=== PATIENT | female | born 1965 | race Hispanic/Latino ===

== ENCOUNTER 2017-01-16 10:19 | Emergency (ER) | payer OTHER ==
[~2017-01-16] VITALS: Ht 175.3 cm; Wt 115.7 kg
[~2017-01-16 10:19] MED LIST: CINAMMON PO; CRESTOR10 M1 PO; CYCLOBENZAPRINE10 M1 PO; FISH OIL 1,2001 EAC3 PO; FLUTICASONE PRO16 GM NASB; GABAPENTIN300 M2 PO; GARLIC OIL1000 M1 PO; LANTUS SOL100 UNIT/1 SC; LISINOPRIL10 M1 PO; METFORMIN HCL1000 M1 PO; NAPROXEN500 M2 PO; VITAMIN D250000 UNIT PO
[2017-01-16 13:17] VITALS: BP 140/77
[2017-01-16 13:26] LABS: ABSOLUTE BASOPHIL COUNT 0 /CUMM (0.0-0.2); ABSOLUTE EOSINOPHIL COUNT 0.4 /CUMM (0.0-0.7); ABSOLUTE GRANULOCYTE CT 7.2 /CUMM (1.4-6.5); ABSOLUTE MONOCYTE COUNT 0.4 /CUMM (0.10-0.60); BASOPHIL % 0.4 % (0.0-2.0); EOSINOPHIL % 3.5 % (0-5); GRANULOCYTE % 65.5 % (42.2-75.2); HEMATOCRIT 36.1 % (37-47); MEAN CORPUSCULAR HGB 28.2 PG (27.0-31.0); MEAN CORPUSCULAR HGB CONC 34.9 G/DL (33.0-37.0); MEAN CORPUSCULAR VOLUME 80.9 FL (81.0-99.0); MEAN PLATELET VOLUME 7.8 FL (7.4-10.4); PLATELET COUNT 429 /CUMM (130-400); RBC DISTRIBUTION WIDTH 13.5 % (11.5-14.5); RED BLOOD CELL CT 4.46 /CUMM (4.20-5.40)
--- NOTE | 2017-01-16 13:30 | ED AMS/SEIZURE/WEAK/DIZZY ---
History of Present Illness General Chief Complaint: Dizziness Stated Complaint: DIZZY Source: patient Exam Limitations: no limitations Vital Signs & Intake/Output Vital Signs & Intake/Output Vital Signs Date Time Temp Pulse Resp B/P B/P Pulse O2 O2 Flow FiO2 Mean Ox Delivery Rate 01/16 1507 98 01/16 1317 97.0 80 140/77 01/16 1031 96.9 100 16 144/88 100 Room Air Allergies Coded Allergies: clindamycin (Mild, ITCHY 10/06/16) Penicillins (UNKNOWN 10/06/16) Reconcile Medications Atorvastatin Calcium 20 MG TABLET 1 TAB PO DAILY CHOLESTEROL (Reported) Fluticasone Propionate 50 MCG/ACTUATION SPRAY.SUSP 2 SPRAY NASB DAILY NEEDED ALLERGIES (Reported) Gabapentin 300 MG CAPSULE 1 CAP PO QPM NEUROPATHY (Reported) Insulin Glargine,Hum.rec.anlog (Lantus Solostar) 100 UNIT/ML (3 ML) INSULN.PEN 30 UNIT SC QPM DIABETES (Reported) Lisinopril 10 MG TABLET 1 TAB PO DAILY BLOOD PRESSURE (Reported) Meclizine HCl 25 MG TABLET 1 TAB PO TIDPRN DIZZINESS Metformin HCl 1,000 MG TABLET 1 TAB PO BID DIABETES (Reported) [place]-3 Fatty Acids/Fish Oil (Fish Oil 1,000 MG Capsule) 340 MG-1,000 MG CAPSULE 1 CAP PO DAILY SUPPLEMENT (Reported) Rosuvastatin Calcium (Crestor) 10 MG TABLET 1 TAB PO DAILY CHOLESTEROL ( Reported) Valsartan (Diovan) 40 MG TABLET 1 TAB PO DAILY HEART (Reported) Triage Note: PT TO ED FOR SUDDEN ONSET OF NAUSEA, DIZZINESS AND BLOODY NOSE THAT BEGAN WHILE SHE WAS AT WORK, BLEEDING STOPPED ON ARRIVAL TO ED. 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 Triage Nurses Notes Reviewed? yes Onset: Abrupt Duration: hour(s): Timing: single episode today Injury Environment: work Severity: moderate HPI: 51yo female presents to ED complaining of abrupt onset epistaxis with subsequent nausea and dizziness. Patient states that she was at work when she experienced a bloody nose. Patient states she felt as though the room around her was spinning. She also felt as though she may pass out. Patient went to the bathroom and had 1 episode of vomiting. Patient reports she has intermittent epistaxis every month or so since she was a child, she has never had symptoms such as dizziness and nausea with nosebleed. Patient also reports that she has had left ear pain and infections for the past 2 months, she recently finished a ten-day course of Augmentin if she still has persistent pain of the left ear and behind the left ear. The patient has never had any dizziness or vertigo in the past. She denies chest pain, shortness of breath, fevers, chills, abdominal pain, diarrhea. Past History Travel History Traveled to [place] past 21 day No Medical History Any Pertinent Medical History? 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 No Review of Systems Review of Systems Constitutional: Reports: no symptoms. EENTM: Reports: see HPI. Respiratory: Reports: no symptoms. Cardiovascular: Reports: see HPI. GI: Reports: see HPI. Genitourinary: Reports: no symptoms. Musculoskeletal: Reports: no symptoms. Skin: Reports: no symptoms. Neurological/Psychological: Reports: see HPI. Hematologic/Endocrine: Reports: no symptoms. Immunologic/Allergic: Reports: no symptoms. All Other Systems: Reviewed and Negative Physical Exam Physical Exam General Appearance: well developed/nourished, no apparent distress, alert, awake Head: atraumatic, normal appearance Eyes: Bilateral: normal appearance, PERRL, EOMI. 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 Yes CVA/TIA Diagnosis No Sepsis Present: No Sepsis Focused Exam Completed? No Progress Differential Diagnosis: arrythmia, alcohol intoxication, anemia, benign positional vertigo, CVA/stroke, dehydration, drug intoxication, encephalitis, electrolyte imbalance, GI bleed, hypoglycemia, hypoxia, intracranial Hem., intracranial mass/tumor, labrynthitis, Meniere's disease, postural hypotension, presyncope Plan of Care: Orders Procedure Date/time Status MISTAKE 01/16 1504 Active TROPONIN LEVEL 01/16 1306 Complete COMPREHENSIVE METABOLIC PANEL 01/16 1306 Complete CBC WITHOUT DIFFERENTIAL 01/16 1306 Complete EKG 01/16 1033 Active Laboratory Tests 01/16/17 1315: Anion Gap 14, Estimated GFR > 60, BUN/Creatinine Ratio 36.7 H, Glucose 301 H, Calcium 9.7, Total Bilirubin 0.4, AST 17, ALT 30, Alkaline Phosphatase 123, Troponin I < 0.01, Total Protein 6.9, Albumin 3.6, Globulin 3.3, Albumin/ Globulin Ratio 1.1, CBC w Diff NO MAN DIFF REQ, RBC 4.46, MCV 80.9 L, MCH 28.2, RDW 13.5, MPV 7.8, Gran % 65.5, Lymphocytes % 26.9, Monocytes % 3.7, Eosinophils % 3.5, Basophils % 0.4, Absolute Granulocytes 7.2 H, Absolute Lymphocytes 3.0, Absolute Monocytes 0.4, Absolute Eosinophils 0.4, Absolute Basophils 0, PUBS MCHC 34.9 Patient reports improvement in dizziness following meclizine. The patient is neurologically intact, no focal neurologic deficit. No erythema present on ear exam, no epistaxis or active nose bleed. The patient's labs show signs of dehydration. Patient also has elevated glucose level. She was educating on increasing her PO water intake today and to check her finger stick glucose level when she gets home and use her insulin slinding scale. Patient feels ready to go home at this time. She was given an ENT specialist to f/u with. The patient has stable vital signs, no orthostatic hypotension. The patient is able to ambulate without difficulty. Patient given return precautions. She is in agreement with the plan of care. Initial ED EKG: sinus rhythm @ 96bpm, nonspecific ST changes Prior EKG: unchanged (07/30/13) Departure Departure Disposition: HOME OR SELF CARE Condition: Stable Clinical Impression Primary Impression: Dizziness Secondary Impressions: Ear pain, left, Epistaxis, Hyperglycemia Referrals: John LEAL,Ross Enriquez (PCP/Family) Additional Instructions: As discussed, follow-up with ENT specialist referred to you today. He may also take meclizine as prescribed as needed for dizziness. If her symptoms are worsening. Experience severe headache, increasing dizziness, or other worsening symptoms return immediately to the emergency department. Please note that there might be incidental findings in your evaluation that are unrelated to the current emergency department visit. Please notify your primary care doctor about this emergency department visit in order to obtain and review all of the testing performed so that these incidental findings can be monitored as needed. If you had an x-ray performed, please understand that some fractures may not be seen on the initial set of x-rays. If your symptoms persist you might need a repeat set of x-rays to check for such a fracture. If you had a laceration evaluated, please understand that foreign bodies such as glass or wood may not be visible to the naked eye or on plain x-rays. If the wound becomes red, swollen, increasingly more painful or if there is any drainage from the wound, please have it reevaluated by a physician for the possibility of a retained foreign body. If you're unable to follow up as outlined in the discharge instructions please return to the emergency department. Thank you for choosing the [facility] Emergency Department for your care. It was a pleasure to serve you today. Departure Forms: Customer Survey General Discharge Information Prescriptions: Current Visit Scripts Meclizine HCl 1 TAB PO TIDPRN #30 TAB
[2017-01-16] MEDS ORDERED: ATORVASTATIN CA20 M1 PO (14:17)
[2017-01-16] MEDS ORDERED: DIOVAN40 MG PO (14:17)
[2017-01-16] MEDS ORDERED: FISH OIL 1,0001 EACH PO (14:18)
[2017-01-16] MEDS ORDERED: MECLIZINE HCL25 MG PO (15:01)
== END 2017-01-16 15:12 ==
LOC: ERH 10:19
PROVIDERS: Physician Assistant
DX: R42 Dizziness and giddiness (principal); E11.65 Type 2 diabetes mellitus with hyperglycemia; R04.0 Epistaxis; H92.02 Otalgia, left ear
CPT/HCPCS: 93005; 93010

== ENCOUNTER 2017-02-27 13:42 | Emergency (ER) | payer OTHER ==
[~2017-02-27] VITALS: Ht 175.3 cm; Wt 113.4 kg
[~2017-02-27 13:42] MED LIST changes: +ATORVASTATIN CA20 M1 PO; +DIOVAN40 MG PO; +FISH OIL 1,0001 EACH PO; +MECLIZINE HCL25 MG PO
--- NOTE | 2017-02-27 16:36 | ED GENERAL ADULT ---
History of Present Illness General Chief Complaint: Lower Extremity Problems Stated Complaint: BILATERAL FEET SWELLING Source: patient, old records Exam Limitations: no limitations Vital Signs & Intake/Output Vital Signs & Intake/Output Vital Signs Date Time Temp Pulse Resp B/P B/P Pulse O2 O2 Flow FiO2 Mean Ox Delivery Rate 02/27 2014 97.2 83 16 172/81 96 Room Air 02/27 1821 96.9 85 12 162/84 96 Room Air 02/27 1612 96.3 85 12 144/78 96 Room Air 02/27 1353 97.8 89 18 145/78 98 Room Air Room Air Allergies Coded Allergies: clindamycin (Mild, ITCHY 10/06/16) Penicillins (UNKNOWN 10/06/16) Reconcile Medications Atorvastatin Calcium 20 MG TABLET 1 TAB PO DAILY CHOLESTEROL (Reported) Fluticasone Propionate 50 MCG/ACTUATION SPRAY.SUSP 2 SPRAY NASB DAILY NEEDED ALLERGIES (Reported) Furosemide (Lasix) 20 MG TABLET 1 TAB PO DAILY LEG SWELLING Gabapentin 300 MG CAPSULE 1 CAP PO QPM NEUROPATHY (Reported) Insulin Glargine,Hum.rec.anlog (Lantus Solostar) 100 UNIT/ML (3 ML) INSULN.PEN 30 UNIT SC QPM DIABETES (Reported) Lisinopril 10 MG TABLET 1 TAB PO DAILY BLOOD PRESSURE (Reported) Meclizine HCl 25 MG TABLET 1 TAB PO TIDPRN DIZZINESS Metformin HCl 1,000 MG TABLET 1 TAB PO BID DIABETES (Reported) [place]-3 Fatty Acids/Fish Oil (Fish Oil 1,000 MG Capsule) 340 MG-1,000 MG CAPSULE 1 CAP PO DAILY SUPPLEMENT (Reported) Rosuvastatin Calcium (Crestor) 10 MG TABLET 1 TAB PO DAILY CHOLESTEROL ( Reported) Valsartan (Diovan) 40 MG TABLET 1 TAB PO DAILY HEART (Reported) Triage Note: TRIAGE: 52 Y/O FEMALE PRESENTS C/O 810 BILATERAL FOOT SWELLING AND PINS AND NEEDLES - HX OF PERIPHERAL NEUROPATHY. NOW ALSO C/O SUDDEN ONSET OF PORTERIOR NECK PAIN. Triage Nurses Notes Reviewed? yes Onset: Gradual Duration: day(s): Timing: recent history Injury Environment: home Severity: moderate HPI: 52-year-old female with history of COPD, DM, HTN presents emergency department complaining of swelling of her legs. Patient states that she has had intermittent swelling of her lower legs for a long time, she was on Lasix for a month, discontinued this medication last months. Patient states that her prescription was only for one month's duration. Since being off this medication she has noticed increasing swelling in her lower legs. The patient wears compression stockings which helps however is still persistent. Patient also complaining of Pain behind left ear radiating up head beginning last night after sudden movement of her neck, his pain has improved since yesterday. Also had chest pain while waiting in the waiting room, left-sided, no radiation, improved over the past several minutes. Patient also reports dyspnea on exertion persistent for over one month. She denies recent fall, trauma, presyncope, visual changes. (Carmela Garcia) Past History Travel History Traveled to [place] past 21 day No Medical History Any Pertinent Medical History? see below for history Neurological: peripheral neuropathy EENT: "EYE LEAKAGE" Cardiovascular: hypertension, hyperlipidemia Respiratory: NONE Gastrointestinal: NONE Hepatic: NONE Renal: NONE Musculoskeletal: NONE Psychiatric: NONE Endocrine: diabetes Blood Disorders: NONE Cancer(s): NONE HOMOEOPATH/Reproductive: NONE Surgical History Surgical History: non-contributory Psychosocial History Who do you live with Spouse Services at Home None What is your primary language [place] Tobacco Use: Never used ETOH Use: occasional use Illicit Drug Use: denies illicit drug use Family History Hx Contributory? No (Carmela Garcia) Review of Systems Review of Systems Constitutional: Reports: no symptoms. EENTM: Reports: no symptoms. Respiratory: Reports: see HPI. Cardiovascular: Reports: see HPI. GI: Reports: no symptoms. Genitourinary: Reports: no symptoms. Musculoskeletal: Reports: see HPI. Skin: Reports: no symptoms. Neurological/Psychological: Reports: see HPI. Hematologic/Endocrine: Reports: no symptoms. Immunologic/Allergic: Reports: no symptoms. All Other Systems: Reviewed and Negative (Carmela Garcia) Physical Exam Physical Exam General Appearance: well developed/nourished, no apparent distress, alert, awake Head: atraumatic, normal appearance, MILD TENDERNESS TO SCALP POSTERIOR TO LEFT EAR Eyes: Bilateral: normal appearance, PERRL, EOMI. 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 Yes CVA/TIA Diagnosis: No Sepsis Present: No Sepsis Focused Exam Completed? No (Jeannette SIDDIQI,Carmela Winkler) Progress Differential Diagnoses I considered the following diagnoses in my evaluation of the patient: [ACS, ICH, by mouth edema, CHF, COPD, pneumonia, dependent edema, electrolyte abnormality, pericarditis, myocarditis, costochondritis] Plan of Care: Orders Procedure Date/time Status TROPONIN LEVEL 02/27 1855 Complete EKG 02/27 1855 Active TROPONIN LEVEL 02/27 1631 Complete HUMAN BETA HCG SCREEN 02/27 1631 Complete COMPREHENSIVE METABOLIC PANEL 02/27 1631 Complete CBC WITHOUT DIFFERENTIAL 02/27 1631 Complete B-TYPE NATRIURETIC PEP (BNP) 02/27 1631 Complete EKG 02/27 1631 Active Laboratory Tests 02/27/17 1858: Troponin I < 0.01 02/27/17 1710: Anion Gap 9, Estimated GFR > 60, BUN/Creatinine Ratio 32.0 H, Glucose 73, Calcium 9.7, Total Bilirubin 0.2, AST 16, ALT 24, Alkaline Phosphatase 114, Troponin I < 0.01, Bzo-N-Hkqdzjlzijh Pept 79.0, Total Protein 6.8, Albumin 3.4 L, Globulin 3.4, Albumin/Globulin Ratio 1.0 L, Total Beta HCG NEGATIVE, CBC w Diff NO MAN DIFF REQ, RBC 4.20, MCV 82.0, MCH 28.0, RDW 13.8, MPV 7.6, Gran % 60.8, Lymphocytes % 29.9, Monocytes % 4.8, Eosinophils % 4.0, Basophils % 0.5, Absolute Granulocytes 7.1 H, Absolute Lymphocytes 3.5 H, Absolute Monocytes 0.6, Absolute Eosinophils 0.5, Absolute Basophils 0.1, PUBS MCHC 34.2 EKG shows subtle T-wave flattening compared to prior study. Troponin negative, remainder of blood work is within normal limits. Patient's chest x-ray without signs of effusion or congestion. Given patient's chest pain while waiting in the emergency department will obtain 2 sets of EKGs and troponins to further rule out acute coronary syndrome. Repeat EKG is unchanged, no skin changes. Second troponin is negative. Patient given low-dose Lasix regarding her leg swelling and instructed to follow-up with her primary care doctor this week. Patient in no acute distress, laying comfortably in stretcher while waiting for results. Patient has stable vital signs, nontoxic appearing. The patient feels ready to go home at this time, she agrees with the plan of care. The patient was discussed with Dr. Burden who agrees with the plan of care. Diagnostic Imaging: Viewed by Me: Radiology Read. Discussed w/RAD: Radiology Read. CXR Impression: PATIENT: KEM PERRIN PRESENT AGE: 52 PATIENT ACCOUNT NO: [id number] : 67 LOCATION: [facility] ORDERING PHYSICIAN: Carmela SIDDIQI SERVICE DATE: 02/27/17 EXAM TYPE: RAD - XRY-CHEST XRAY, TWO VIEWS EXAMINATION: XR CHEST CLINICAL INFORMATION: Dyspnea with exertion. COMPARISON: Chest done on 07/17/2016. TECHNIQUE: 2 views of the chest were obtained. FINDINGS: Both lung mcgrath are symmetrically expanded and appear clear. The cardiomediastinal silhouette is within normal limits. There is no pleural effusion present. The visualized upper abdomen is unremarkable. IMPRESSION: No acute cardiopulmonary disease. DICTATED BY: Alton Restrepo MD DATE/TIME DICTATED:02/27/171742 FUND DIRECTOR:MARIAH DATE/TIME TRANSCRIBED:02/27/171742 CONFIDENTIAL, DO NOT COPY WITHOUT APPROPRIATE AUTHORIZATION. <Electronically signed in Other Vendor System> SIGNED BY: Alton Restrepo MD 02/27/17 4534 Initial ED EKG: sinus rhythm @83bpm, nonspecific t wave changes Prior EKG: changed (01/16/17, subtle t wave change) Repeat EKG: unchanged (Carmela Garcia) Departure Departure Disposition: HOME OR SELF CARE Condition: Stable Clinical Impression Primary Impression: Localized swelling of both lower legs Secondary Impressions: Chest pain Qualifiers: Chest pain type: unspecified Qualified Code: R07.9 - Chest pain, unspecified Dyspnea Qualifiers: Dyspnea type: dyspnea on exertion Qualified Code: R06.09 - Other forms of dyspnea Head pain Qualifiers: Headache type: unspecified Headache chronicity pattern: acute headache Intractability: not intractable Qualified Code: R51 - Headache Referrals: John LEAL,Ross Enriquez (PCP/Family) Additional Instructions: Began Lasix once a day as prescribed. Continue wearing her compression stockings and elevate your legs. Follow-up with your primary care doctor this week to discuss this new medication. Return to Emergency Department with any worsening symptoms or other concerns. Please note that there might be incidental findings in your evaluation that are unrelated to the current emergency department visit. Please notify your primary care doctor about this emergency department visit in order to obtain and review all of the testing performed so that these incidental findings can be monitored as needed. If you had an x-ray performed, please understand that some fractures may not be seen on the initial set of x-rays. If your symptoms persist you might need a repeat set of x-rays to check for such a fracture. If you had a laceration evaluated, please understand that foreign bodies such as glass or wood may not be visible to the naked eye or on plain x-rays. If the wound becomes red, swollen, increasingly more painful or if there is any drainage from the wound, please have it reevaluated by a physician for the possibility of a retained foreign body. If you're unable to follow up as outlined in the discharge instructions please return to the emergency department. Thank you for choosing the [facility] Emergency Department for your care. It was a pleasure to serve you today. Departure Forms: Customer Survey General Discharge Information Prescriptions: Current Visit Scripts Furosemide (Lasix) 1 TAB PO DAILY #7 TAB (Carmela Garcia) PA/SYSTEM SUPPORT ADMINISTRATOR Co-Sign Statement Statement: ED Attending supervision documentation- [] I saw and evaluated the patient. I have also reviewed all the pertinent lab results and diagnostic results. I agree with the findings and the plan of care as documented in the PA's/SYSTEM SUPPORT ADMINISTRATOR's documentation. [X] I have reviewed the ED Record and agree with the PA's/SYSTEM SUPPORT ADMINISTRATOR's documentation. [] Additions or exceptions (if any) to the PAs/SYSTEM SUPPORT ADMINISTRATOR's note and plan are summarized below: [] (Jenise LEAL,Geoff Grey) Critical Care Note Critical Care Note Critical Care Time: non-applicable (Carmela Garcia)
[2017-02-27 17:23] LABS: ABSOLUTE EOSINOPHIL COUNT 0.5 /CUMM (0.0-0.7); ABSOLUTE GRANULOCYTE CT 7.1 /CUMM (1.4-6.5); ABSOLUTE LYMPH COUNT 3.5 /CUMM (1.2-3.4); ABSOLUTE MONOCYTE COUNT 0.6 /CUMM (0.10-0.60); HEMATOCRIT 34.4 % (37-47); MEAN CORPUSCULAR HGB CONC 34.2 G/DL (33.0-37.0); MEAN PLATELET VOLUME 7.6 FL (7.4-10.4); RBC DISTRIBUTION WIDTH 13.8 % (11.5-14.5); WHITE BLOOD CELL COUNT 11.7 /CUMM (4.8-10.8)
--- NOTE | 2017-02-27 17:59 | RADIOLOGY REPORT ---
EXAMINATION: XR CHEST CLINICAL INFORMATION: Dyspnea with exertion. COMPARISON: Chest done on 07/17/2016. TECHNIQUE: 2 views of the chest were obtained. FINDINGS: Both lung mcgrath are symmetrically expanded and appear clear. The cardiomediastinal silhouette is within normal limits. There is no pleural effusion present. The visualized upper abdomen is unremarkable. IMPRESSION: No acute cardiopulmonary disease.
[2017-02-27 18:03] LABS: ABSOLUTE BASOPHIL COUNT 0.1 /CUMM (0.0-0.2); BASOPHIL % 0.5 % (0.0-2.0); GRANULOCYTE % 60.8 % (42.2-75.2); PLATELET COUNT 537 /CUMM (130-400)
[2017-02-27] MEDS ORDERED: LASIX20 M1 PO (20:10)
[2017-02-27 20:15] VITALS: BP 172/81
== END 2017-02-27 20:35 ==
LOC: ERH 13:42
PROVIDERS: Physician Assistant
DX: M79.89 Other specified soft tissue disorders (principal); R07.9 Chest pain, unspecified; R06.00 Dyspnea, unspecified; R51 Headache
CPT/HCPCS: 71046; 93005; 93010

== ENCOUNTER 2017-04-02 14:44 | Emergency (ER) | payer OTHER ==
[~2017-04-02] VITALS: Ht 175.3 cm; Wt 117.9 kg
[~2017-04-02 14:44] MED LIST changes: +LASIX20 M1 PO
--- NOTE | 2017-04-02 16:21 | ED ANKLE/FOOT INJURY COMPLAINT ---
History of Present Illness General Chief Complaint: Foot or Ankle Injury Stated Complaint: lft ankle pain Source: patient Exam Limitations: no limitations Vital Signs & Intake/Output Vital Signs & Intake/Output Vital Signs Date Time Temp Pulse Resp B/P B/P Pulse O2 O2 Flow FiO2 Mean Ox Delivery Rate 04/02 1715 90 20 131/83 99 Room Air 04/02 1451 97 20 160/78 98 Room Air ED Intake and Output 04/03 0000 04/02 1200 Intake Total Output Total Balance Patient 260 lb Weight Weight Reported by Patient Measurement Method Allergies Coded Allergies: clindamycin (Mild, ITCHY 10/06/16) Penicillins (UNKNOWN 10/06/16) Reconcile Medications Aspirin (Ecotrin*) 81 MG TABLET.DR 1 TAB PO DAILY HEART HEALTH (Reported) Atorvastatin Calcium 20 MG TABLET 1 TAB PO DAILY CHOLESTEROL (Reported) Budesonide/Formoterol Fumarate (Symbicort 80-4.5 Mcg Inhaler) 80 MCG-4.5 MCG/ ACTUATION HFA.AER.AD 2 PUF INH BID BREATHING PROBLEMS (Reported) Fluticasone Propionate 50 MCG/ACTUATION SPRAY.SUSP 2 SPRAY NASB DAILY NEEDED ALLERGIES (Reported) Furosemide (Lasix) 20 MG TABLET 1 TAB PO DAILY LEG SWELLING Gabapentin 300 MG CAPSULE 1 CAP PO QPM NEUROPATHY (Reported) Hydrocodone/Acetaminophen (Martha 5-325 Tablet) 5 MG-325 MG TABLET 1 TAB PO Q4- 6 PRN PRN pain Insulin Glargine,Hum.rec.anlog (Lantus Solostar) 100 UNIT/ML (3 ML) INSULN.PEN 30 UNIT SC QPM DIABETES (Reported) Lisinopril 10 MG TABLET 1 TAB PO DAILY BLOOD PRESSURE (Reported) Meclizine HCl 25 MG TABLET 1 TAB PO TIDPRN DIZZINESS Metformin HCl 1,000 MG TABLET 1 TAB PO BID DIABETES (Reported) [place]-3 Fatty Acids/Fish Oil (Fish Oil 1,000 MG Capsule) 340 MG-1,000 MG CAPSULE 1 CAP PO DAILY SUPPLEMENT (Reported) Rosuvastatin Calcium (Crestor) 10 MG TABLET 1 TAB PO DAILY CHOLESTEROL ( Reported) Valsartan (Diovan) 40 MG TABLET 1 TAB PO DAILY HEART (Reported) Triage Note: PT TO ED C/O LEFT ANKLE PAIN SINCE LAST NIGHT. STATES SHE NORMALLY HAS L/E SWELLING AND NEUROPATHY. STATES WHILE TAKING HER BOOTS OFF LAST NIGHT HER ANKLE BEGAN TO HURT. PAIN RADIATES UP TO LEFT KNEE. DENIES ANY OBVIOUS INJURY. TOOK NAPROSYN 500 MG 1000 THIS AM. Triage Nurses Notes Reviewed? yes Occurred: yesterday Duration: day(s): (1), constant, continues in ED, getting worse Timing: single episode today Severity: mild, moderate Severity Numbers: 7 Pain/Injury Location: Left: Ankle. Method of Injury: unknown No Modifying Factors: none LMP (ages 10-50): unknown : No Patient currently breastfeeds: No HPI: 52-year-old female past medical history of hypertension, hyponatremia, peripheral neuropathy presents for evaluation of pain in her left ankle. Patient states pain started last night while she was putting on a boat. She suddenly felt pain in the lateral aspect of her ankle and lateral heel. She denies any direct trauma or falls. No numbness or tingling. She states she is able to walk but that it is painful. No knee pain swelling or tenderness to recent surgery or trauma. She is not taking any medicine for pain. (Bret Cortez) Past History Travel History Traveled to [place] past 21 day No Medical History Any Pertinent Medical History? see below for history Neurological: peripheral neuropathy EENT: "EYE LEAKAGE" Cardiovascular: hypertension, hyperlipidemia Respiratory: NONE Gastrointestinal: NONE Hepatic: NONE Renal: NONE Musculoskeletal: NONE Psychiatric: NONE Endocrine: diabetes Blood Disorders: NONE Cancer(s): NONE CT MANAGER/Reproductive: NONE Surgical History Surgical History: non-contributory Psychosocial History Who do you live with Spouse Services at Home None What is your primary language Kyrgyz Tobacco Use: Never used ETOH Use: denies use Illicit Drug Use: denies illicit drug use Family History Hx Contributory? No (rBet Cortez) Review of Systems Review of Systems Constitutional: Reports: no symptoms. EENTM: Reports: no symptoms. Respiratory: Reports: no symptoms. Cardiovascular: Reports: no symptoms. GI: Reports: no symptoms. Genitourinary: Reports: no symptoms. Musculoskeletal: Reports: joint pain, muscle pain, muscle stiffness. Skin: Reports: no symptoms. Neurological/Psychological: Reports: no symptoms. Hematologic/Endocrine: Reports: no symptoms. Immunologic/Allergic: Reports: no symptoms. All Other Systems: Reviewed and Negative (Bret Cortez) Physical Exam Physical Exam General Appearance: well developed/nourished, no apparent distress, alert, awake Head: atraumatic, normal appearance Eyes: Bilateral: normal appearance, EOMI. Ears, Nose, Throat: hearing grossly normal Neck: normal inspection, supple, full range of motion Cardiovascular/Respiratory: no respiratory distress Leg/Knee/Thigh Left: normal range of motion, normal inspection Leg/Knee/Thigh Right: normal range of motion, normal inspection Ankle Left: normal inspection, normal range of motion, A to palpation of the lateral malleolus and lateral aspect of the ankle and lateral heel. No soft tissue swelling no bruising. Full range of motion intact. Neurovascular supply intact. Patient is able to stand and bear weight Ankle Right: normal inspection, normal range of motion Foot Left: normal inspection, normal range of motion, pain to palpation over the lateral heel no bruising swelling or abrasions Foot Right: normal inspection, normal range of motion Neuro/Vascular: normal motor function, normal sensation Tendon: normal tendon function Psychiatric: awake, alert, oriented x 3 Skin: intact, normal color, warm/dry (Beto SIDDIQI,Bret) Progress Differential Diagnosis: fracture, dislocation, sprain, contusion Plan of Care: Orders Procedure Date/time Status Durable Medical Equipment 04/02 1620 Active Current Medications Sig/Contreras Start time Last Medication Dose Stop Time Status Admin Ibuprofen 800 MG ONCE ONE 04/02 1630 CAN (Motrin) 04/02 1631 Patient seen and evaluated. She has pain to palpation of the lateral malleolus on the left ankle and the lateral aspect of the heel. No known trauma or triggering event. The pain started while she was putting a boot on yesterday. X-ray shows a possible tibial sesamoid bone fracture however this is not correlated clinically as she has no tenderness to palpation over the tibia. All of her pain is located near the lateral aspect of the ankle and heel. Patient will be given a walking boot and Martha for severe pain only. Rest ice elevation compression follow-up with podiatry. Discussed return precautions patient is nontoxic-appearing and agrees the plan. Diagnostic Imaging: Viewed by Me: Radiology Read. Discussed w/RAD: Radiology Read. Radiology Impression: PATIENT: KEM PERRIN PRESENT AGE: 52 PATIENT ACCOUNT NO: [id number] : 67 LOCATION: [facility] ORDERING PHYSICIAN: Bret SIDDIQI SERVICE DATE: 04/02/17 EXAM TYPE: RAD - XRY-ANKLE 3 OR MORE VIEWS L; XRY-FOOT COMPLETE, LEFT EXAMINATION: XR LEFT ANKLE XR LEFT FOOT CLINICAL INFORMATION: Ankle and foot pain. COMPARISON: None TECHNIQUE: 3 views of the left ankle and 3 views of the left foot were obtained. FINDINGS: There is a multipartite tibial sesamoid. Hallux valgus deformity and mild first MTP degenerative changes. There is soft tissue swelling medial to the first MTP joint. There is a nonaggressive appearing, nonspecific, 1.3 x 0.9 cm lucent lesion in the proximal third metatarsal. Hypertrophic changes about the midfoot. Plantar calcaneal spurring. Distal Achilles enthesopathy. The ankle mortise is congruent. IMPRESSION: 1. Multipartite tibial sesamoid could be chronic or represent sesamoid fracture. Please correlate for local point tenderness. 2. No other findings concerning for acute fracture. 3. A nonspecific , nonaggressive appearing 1.3 x 0.9 cm lucent lesion at the proximal third metatarsal. Recommend 6 month follow-up radiography for reevaluation. 4. Additional nonacute findings as described above. (Bret Cortez) Departure Departure Disposition: HOME OR SELF CARE Condition: Stable Clinical Impression Primary Impression: Left ankle pain Qualifiers: Chronicity: acute Qualified Code: M25.572 - Pain in left ankle and joints of left foot Referrals: Rosalie CASAS,Arnaldo Lopez MD,Ross Enriquez (PCP/Family) Additional Instructions: Rest, avoid excessive physical activity. Avoid excessive weightbearing. Keep the foot elevated wear walking boot. Use naproxen 500 mg every 12 hours with food as needed for pain. Martha as needed for severe pain only this may cause drowsiness. Make a follow-up appointment with provided tube filler Dr. Wiggins as soon as possible. Monitor symptoms return with worsening pain worsening swelling redness or any other concerns. Departure Forms: Customer Survey General Discharge Information Prescriptions: Current Visit Scripts Hydrocodone/Acetaminophen (Martha 5-325 Tablet) 1 TAB PO Q4-6 PRN PRN pain #10 TAB (Bret Cortez) PA/NATIONAL COVERAGE SPECIALIST Co-Sign Statement Statement: ED Attending supervision documentation- I saw and evaluated the patient. I have also reviewed all the pertinent lab results and diagnostic results. I agree with the findings and the plan of care as documented in the PA's/NATIONAL COVERAGE SPECIALIST's documentation. x I have reviewed the ED Record and agree with the PA's/NATIONAL COVERAGE SPECIALIST's documentation. [] Additions or exceptions (if any) to the PAs/NATIONAL COVERAGE SPECIALIST's note and plan are summarized below: [] (Carley LEAL,Romain)
--- NOTE | 2017-04-02 16:24 | RADIOLOGY REPORT ---
EXAMINATION: XR LEFT ANKLE XR LEFT FOOT CLINICAL INFORMATION: Ankle and foot pain. COMPARISON: None TECHNIQUE: 3 views of the left ankle and 3 views of the left foot were obtained. FINDINGS: There is a multipartite tibial sesamoid. Hallux valgus deformity and mild first MTP degenerative changes. There is soft tissue swelling medial to the first MTP joint. There is a nonaggressive appearing, nonspecific, 1.3 x 0.9 cm lucent lesion in the proximal third metatarsal. Hypertrophic changes about the midfoot. Plantar calcaneal spurring. Distal Achilles enthesopathy. The ankle mortise is congruent. IMPRESSION: 1. Multipartite tibial sesamoid could be chronic or represent sesamoid fracture. Please correlate for local point tenderness. 2. No other findings concerning for acute fracture. 3. A nonspecific, nonaggressive appearing 1.3 x 0.9 cm lucent lesion at the proximal third metatarsal. Recommend 6 month follow-up radiography for reevaluation. 4. Additional nonacute findings as described above.
[2017-04-02] MEDS ORDERED: NORCO 5-325 TA1 EACH PO (16:58)
[2017-04-02 17:15] VITALS: BP 131/83
[2017-04-02] MEDS ORDERED: SYMBICORT 80-10.2 GM INH (17:39)
[2017-04-02] MEDS ORDERED: ASPIRIN EC81 M1 PO (17:41)
[2017-04-06] MEDS ORDERED: NAPROXEN500 M2 PO (14:12)
[2017-04-06] MEDS ORDERED: ONDANSETRON ODT4 M1 PO (14:12)
== END 2017-04-02 17:49 ==
LOC: ERH 14:44
DX: M25.572 Pain in left ankle and joints of left foot (principal)
CPT/HCPCS: 73610-LT; 73630-LT

== ENCOUNTER 2017-07-31 16:12 | Inpatient (IN) | payer OTHER ==
[~2017-07-31] VITALS: Ht 175.3 cm; Wt 114.8 kg
[~2017-07-31 16:12] MED LIST changes: +ASPIRIN EC81 M1 PO; +NORCO 5-325 TA1 EACH PO; +ONDANSETRON ODT4 M1 PO; +SYMBICORT 80-10.2 GM INH
--- NOTE | 2017-07-31 18:35 | ED UPPER/LOWER EXTREMITY COMPL ---
History of Present Illness General Chief Complaint: Lower Extremity Problems Stated Complaint: SORE BETWEEN TOES Source: patient Exam Limitations: no limitations Vital Signs & Intake/Output Vital Signs & Intake/Output Vital Signs Date Time Temp Pulse Resp B/P B/P Pulse O2 O2 Flow FiO2 Mean Ox Delivery Rate 07/31 2226 96.4 81 20 145/71 97 Room Air 07/31 1903 98.0 86 18 135/66 100 Room Air 07/31 1622 96.4 94 18 157/94 98 Room Air ED Intake and Output 08/01 0000 07/31 1200 Intake Total 0 Output Total Balance 0 Intake, Oral 0 Patient 253 lb Weight Weight Reported by Patient Measurement Method Allergies Coded Allergies: clindamycin (Mild, ITCHY 04/06/17) Penicillins (UNKNOWN 04/06/17) Triage Note: PT STATES SHE HAS A SWOLLEN RIGHT TOE. PT ARRIVES WITH CAM BOOT TO RIGHT FOOT. PT STATES SHE HAS A SORE BETWEEN HER TOE AND HER PCP TOLD HER TO COME TO ED. PT REPORTS THAT SHE IS ON ABX AND THAT SHE IS A DIABETIC. PT CURRENTLY TAKING DOXYCYCLINE Triage Nurses Notes Reviewed? yes Onset: Gradual Duration: constant Severity: moderate Severity Numbers: 5 HPI: Patient is a 52-year-old female with past medical history of type 2 diabetes who presents emergency room stating that last Monday 4 days ago patient presented to her primary care doctor for concerns of a foot infection to the right foot and toes where she was prescribed doxycycline patient states that the swelling and erythema had improved however she has noticing persistent purulent discharge from the toes. Patient has been compliant with her clindamycin denies any fever Patient denies any mechanism of injury or trauma states she has diabetic neuropathy (De Chaudhry) Reconcile Medications Aspirin (Ecotrin*) 81 MG TABLET.DR 1 TAB PO DAILY HEART HEALTH (Reported) Atorvastatin Calcium 20 MG TABLET 1 TAB PO DAILY CHOLESTEROL (Reported) Budesonide/Formoterol Fumarate (Symbicort 80-4.5 Mcg Inhaler) 80 MCG-4.5 MCG/ ACTUATION HFA.AER.AD 2 PUF INH BID BREATHING PROBLEMS (Reported) Fluticasone Propionate 50 MCG/ACTUATION SPRAY.SUSP 2 SPRAY NASB DAILY NEEDED ALLERGIES (Reported) Furosemide (Lasix) 20 MG TABLET 1 TAB PO DAILY LEG SWELLING Gabapentin 300 MG CAPSULE 1 CAP PO QPM NEUROPATHY (Reported) Insulin Aspart (Novolog) (Unknown Strength) VIAL (Unknown Dose) DM sliding scale (Reported) Insulin Glargine,Hum.rec.anlog (Lantus Solostar) 100 UNIT/ML (3 ML) INSULN.PEN 60 UNIT SC QPM DM (Reported) Levothyroxine Sodium 25 MCG TABLET 1 TAB PO DAILY HypoTSH (Reported) Meclizine HCl 25 MG TABLET 1 TAB PO TIDPRN DIZZINESS Metformin HCl 1,000 MG TABLET 1 TAB PO BID DIABETES (Reported) Maple-3 Fatty Acids/Fish Oil (Fish Oil 1,000 MG Capsule) 340 MG-1,000 MG CAPSULE 1 CAP PO DAILY SUPPLEMENT (Reported) Valsartan (Diovan) 40 MG TABLET 1 TAB PO DAILY HEART (Reported) (Jenise LEAL,Geoff Grey) Past History Travel History Traveled to [place] past 21 day No Medical History Any Pertinent Medical History? see below for history Neurological: peripheral neuropathy EENT: "EYE LEAKAGE" Cardiovascular: hypertension, hyperlipidemia Respiratory: NONE Gastrointestinal: NONE Hepatic: NONE Renal: NONE Musculoskeletal: NONE Psychiatric: NONE Endocrine: diabetes Blood Disorders: NONE Cancer(s): NONE CAGE OPERATOR/Reproductive: NONE Surgical History Surgical History: non-contributory Psychosocial History Who do you live with Spouse Services at Home None What is your primary language Korean Tobacco Use: Never used ETOH Use: occasional use Illicit Drug Use: denies illicit drug use Family History Hx Contributory? No (De Chaudhry) Review of Systems Review of Systems Constitutional: Reports: no symptoms. EENTM: Reports: no symptoms. Respiratory: Reports: no symptoms. Cardiovascular: Reports: no symptoms. Gastrointestinal/Abdominal: Reports: no symptoms. Genitourinary: Reports: no symptoms. Musculoskeletal: Reports: see HPI. Skin: Reports: see HPI. Neurological/Psychological: Reports: no symptoms. Hematologic/Endocrine: Reports: no symptoms. Immunological: Reports: no symptoms. All Other Systems: Reviewed and Negative (De Chaudhry) Physical Exam Physical Exam General Appearance: no apparent distress, alert, comfortable, obese Head: atraumatic Eyes: Bilateral: normal appearance. Ears, Nose, Throat: hearing grossly normal Neck: normal inspection Cardiovascular/Respiratory: normal breath sounds, normal peripheral pulses, regular rate/rhythm Peripheral Pulses: 2+ dorsalis pedis (R) Neurologic/Tendon: normal sensation, normal motor functions, normal tendon functions, responds to pain, no evidence tendon injury, no pulse deficit Diagram Feet Top 1) Noted erythema swelling and warmth with lateral purulence and discharge and 5 mm open ulcer (Wilfred SIDDIQI,De) Progress Differential Diagnosis: arterial insufficiency, cellulitis, CHF, compartment syndrome, contusion, dislocation, DVT, fracture, gout, septic arthritis Plan of Care: Orders Procedure Date/time Status Nothing by Mouth 08/01 B Active CBC WITHOUT DIFFERENTIAL 08/01 599 Active BASIC ELECTROLYTES PLUS BUN&CR 08/01 599 Active Pathway - chart 07/31 2256 Active Patient Data 07/31 2205 Active LACTIC ACID 07/31 2205 Complete ED Holding Orders 08/01 2127 Active Admit to inpatient 08/01 2127 Active Vital Signs 08/01 2127 Active Code Status 08/01 2127 Active TROPONIN LEVEL 08/01 1999 Active BLOOD CULTURE 07/31 1905 Active LACTIC ACID 07/31 190 Active COMPREHENSIVE METABOLIC PANEL 07/31 190 Active CBC WITHOUT DIFFERENTIAL 07/31 190 Complete Intake & Output 07/31 1851 Active House Staff 07/31 UNK Active Lab Add-on Test 07/31 UNK Active VTE Mechanical Prophylaxis 07/31 UNK Active Vital Signs 07/31 UNK Active FingerStick- Glucose 07/31 UNK Active Elevate 07/31 UNK Active EKG 07/31 UNK Active Current Medications Sig/Contreras Start time Last Medication Dose Stop Time Status Admin Insulin Detemir 30 UNITS BID 08/01 2100 UNVr (Levemir) Atorvastatin Calcium 20 MG 1700 08/01 1700 AC (Lipitor) Budesonide/ 2 PUF BID 08/01 0900 AC Formoterol Fumarate (SYMBICORT) Furosemide 20 MG DAILY 08/01 09 AC (Lasix) Levothyroxine Sodium 0.025 MG DAILY AC 08/01 0700 AC (Synthroid) Insulin Human Regular 0 Q6 07/31 2359 AC (NovoLIN R) Dextrose/Sodium 1,000 ML Q10H 07/31 2355 r Chloride 08/01 0954 (D5W-1/2 Normal Saline 1000ML) Gabapentin 300 MG QPM PRN 07/31 2345 UNVr (Neurontin) Insulin Detemir 30 UNITS ONCE ONE 07/31 2345 UNVr (Levemir) 07/31 2346 Oxycodone HCl 5 MG Q6H PRN 07/31 2345 CANr (Roxicodone) Fluticasone 2 SPRAY DAILY NEEDED PRN 07/31 2330 AC Propionate (Flonase) Meclizine HCl 25 MG TID PRN 07/31 2330 AC (Antivert) Acetaminophen 650 MG Q6P PRN 07/31 2300 AC (Tylenol) Laboratory Tests 07/31/172: Lactic Acid 1.6 07/31/171999: Anion Gap 13, Estimated GFR > 60, BUN/Creatinine Ratio 35.0 H, Glucose 224 H, Lactic Acid 2.5 H, Calcium 9.4, Total Bilirubin 0.3, AST 17, ALT 20, Alkaline Phosphatase 137 H, Troponin I Pending, Total Protein 7.2, Albumin 3.5, Globulin 3.7, Albumin/Globulin Ratio 0.9 L, CBC w Diff NO MAN DIFF REQ, RBC 4.19 L, MCV 81.4, MCH 27.4, MCHC 33.7, RDW 14.4, MPV 7.9, Gran % 60.2, Lymphocytes % 30.3, Monocytes % 5.2, Eosinophils % 3.6, Basophils % 0.7, Absolute Granulocytes 6.3, Absolute Lymphocytes 3.2, Absolute Monocytes 0.5, Absolute Eosinophils 0.4, Absolute Basophils 0.1 Microbiology 07/31 2016 BLOOD: Blood Culture - RECD 08/01 1999 BLOOD: Blood Culture - RECD Patient denies any mechanism of injury or etiology of concerning right distal phalanx third digit fracture and which due to history of present ILLNESS AND exam findings of cellulitis and open ulcer there is concerned of pathological fracture, discussed patient with Dr. Wiggins who advised patient to be admitted continue antibiotics and he will put patient on the schedule for most likely debridement versus amputation. Discussed disposition and plan with patient who agrees and has no questions. Diagnostic Imaging: Viewed by Me: Radiology Read. Radiology Impression: acute abnormality Comments: PATIENT: KEM PERRIN PRESENT AGE: 52 PATIENT ACCOUNT NO: [id number] : 67 LOCATION: [facility] ORDERING PHYSICIAN: De SIDDIQI SERVICE DATE: 07/31/17 EXAM TYPE: RAD - XRY-FOOT COMPLETE, R EXAMINATION: XR FOOT, RIGHT CLINICAL INFORMATION: Open wound in the webspace between the 3rd and 4th toes, evaluate for osteomyelitis. COMPARISON: None TECHNIQUE: AP, lateral, and oblique views of the right foot. FINDINGS: Comminuted trifragmented, displaced fracture of the 3rd proximal phalanx is noted involving the base and mid shaft. There is intra-articular extension at the MTP joint. The 3rd PIP joint alignment is normal. Fracture fragments at the base are by 0.4 cm distance. Underlying pathologic lesions would be difficult to exclude. Correlate with history of trauma in this region. There is no evidence of associated changes of healing. No periosteal reaction is noted. No soft tissue air is seen. Mild degenerative changes are noted in the midfoot. No additional acute osseous abnormality noted. No radiopaque foreign bodies noted. Soft tissue swelling is noted over the dorsum of the foot. Plantar calcaneal spur at the insertion of plantar aponeurosis. IMPRESSION: Comminuted intra-articular displaced fracture of the right foot 3rd proximal phalanx involving the base and mid shaft of the phalanx. Pathologic fracture would be difficult to exclude as there could be lucent lesion involving mid shaft and base of the phalanx here. Correlate with history of trauma in this region. No plain radiographic evidence of osteomyelitis. No soft tissue air is noted. Degenerative changes in the mid foot. Soft tissue swelling over the dorsum of the foot. DICTATED BY: Zen Kaiser MD DATE/TIME DICTATED:07/31/171955 HAND CANDY CUTTER:MARIAH DATE/TIME TRANSCRIBED:07/31/171955 (De Chaudhry) Departure Departure Disposition: HOME OR SELF CARE Condition: Stable Clinical Impression Primary Impression: Cellulitis of toe of right foot Secondary Impressions: Cellulitis of foot, right, Fracture of distal phalanx of toe of right foot Referrals: Ross Lopez MD (PCP/Family) Departure Forms: Customer Survey General Discharge Information Admission Note Spoke With: Judson Smyth MD Documentation of Exam: Documentation of any treatments & extenuating circumstances including Concerns Regarding Discharge (functional status, medication knowledge or non-compliance, living conditions, etc.) that warrant an admission rather than observation: [ Patient requires IV antibiotics repeat labs podiatry consultation and possible wound debridement versus amputation.] (De Chaudhry) PA/CRUTCH MAKER Co-Sign Statement Statement: ED Attending supervision documentation- [X] I saw and evaluated the patient. I have also reviewed all the pertinent lab results and diagnostic results. I agree with the findings and the plan of care as documented in the PA's/CRUTCH MAKER's documentation. [X] I have reviewed the ED Record and agree with the PA's/CRUTCH MAKER's documentation. [] Additions or exceptions (if any) to the PAs/CRUTCH MAKER's note and plan are summarized below: [Patient to be admitted for IV antibiotics, podiatry consultation, possible treatment for osteal] (Jenise LEAL,Geoff Grey)
[2017-07-31 20:15] LABS: ABSOLUTE BASOPHIL COUNT 0.1 /CUMM (0.0-0.2); ABSOLUTE EOSINOPHIL COUNT 0.4 /CUMM (0.0-0.7); ABSOLUTE GRANULOCYTE CT 6.3 /CUMM (1.4-6.5); ABSOLUTE LYMPH COUNT 3.2 /CUMM (1.2-3.4); ABSOLUTE MONOCYTE COUNT 0.5 /CUMM (0.10-0.60); BASOPHIL % 0.7 % (0.0-2.0); EOSINOPHIL % 3.6 % (0-5); GRANULOCYTE % 60.2 % (42.2-75.2); HEMATOCRIT 34.1 % (37-47); MEAN CORPUSCULAR HGB 27.4 PG (27.0-31.0); MEAN CORPUSCULAR HGB CONC 33.7 G/DL (33.0-37.0); MEAN CORPUSCULAR VOLUME 81.4 FL (81.0-99.0); MEAN PLATELET VOLUME 7.9 FL (7.4-10.4); PLATELET COUNT 511 /CUMM (130-400); RBC DISTRIBUTION WIDTH 14.4 % (11.5-14.5); RED BLOOD CELL CT 4.19 /CUMM (4.20-5.40); WHITE BLOOD CELL COUNT 10.5 /CUMM (4.8-10.8)
--- NOTE | 2017-07-31 20:16 | RADIOLOGY REPORT ---
EXAMINATION: XR FOOT, RIGHT CLINICAL INFORMATION: Open wound in the webspace between the 3rd and 4th toes, evaluate for osteomyelitis. COMPARISON: None TECHNIQUE: AP, lateral, and oblique views of the right foot. FINDINGS: Comminuted trifragmented, displaced fracture of the 3rd proximal phalanx is noted involving the base and mid shaft. There is intra-articular extension at the MTP joint. The 3rd PIP joint alignment is normal. Fracture fragments at the base are by 0.4 cm distance. Underlying pathologic lesions would be difficult to exclude. Correlate with history of trauma in this region. There is no evidence of associated changes of healing. No periosteal reaction is noted. No soft tissue air is seen. Mild degenerative changes are noted in the midfoot. No additional acute osseous abnormality noted. No radiopaque foreign bodies noted. Soft tissue swelling is noted over the dorsum of the foot. Plantar calcaneal spur at the insertion of plantar aponeurosis. IMPRESSION: Comminuted intra-articular displaced fracture of the right foot 3rd proximal phalanx involving the base and mid shaft of the phalanx. Pathologic fracture would be difficult to exclude as there could be lucent lesion involving mid shaft and base of the phalanx here. Correlate with history of trauma in this region. No plain radiographic evidence of osteomyelitis. No soft tissue air is noted. Degenerative changes in the mid foot. Soft tissue swelling over the dorsum of the foot.
--- NOTE | 2017-07-31 22:43 | History & Physical ---
Daly John 07/31/17 2233: General Information and HPI MD Statement: I have seen and personally examined KEM PERRIN and documented this H&P. The patient is a 52 year old F who presented with a patient stated chief complaint of [sent in by Dr. Montague]. Source of Information: patient, old records Exam Limitations: no limitations History of Present Illness: Ms. Perrin is a 52yo F w/ PMH of T2DM x 18 yrs (Last HbA1c 10.0), w/ peripheral neuropathy, HTN, HLD, Hypothyroidism, hx of cholecystectomy/hysterectomy/ nephrolithiasis, chronic steroid injection of right knee q 4 months but last shot in 2014 (missing meniscle), presented to the ER for her right foot infection. Patient was seen by PCP 4 days ago for this same infection that she was prescirbed doxycycline, and had noticed improvement on swelling/erythema, however still had persistent purulent discharge from the toes. Patient was then advised to come to ER for further evaluation, however she waited on Monday and eventually decided to come today. Patient denied any injury to her food, but noticed swelling ,erythema, bleeding, and some whitish yellow purulent discahrge from base of right 3rd toe. Patient was known to be in her usual state of health until 3 months ago with sudden onset of ankle swelling that Dr. Montague told her it was "debilitating bone disease", however without any intervention/medical treatment. Patient also had arterial doppler but was normal. During our clinical interaction, patient denied recent travel/sick contacts, fever/lightheadedness/diaphoresis/night sweat/cough/SOB/Chest Pain/Palpitation/ Abdominal pain/bowel movement or urinary abnormality, or other skin/ musculoskeletal/neurological/mood disorders, or dietary/appetite change. Patient is due to see [facility] this month. Allergies/Medications Allergies: Coded Allergies: clindamycin (Mild, ITCHY 04/06/17) Penicillins (UNKNOWN 04/06/17) Home Med list Aspirin (Ecotrin*) 81 MG TABLET.DR 1 TAB PO DAILY HEART HEALTH (Reported) Atorvastatin Calcium 20 MG TABLET 1 TAB PO DAILY CHOLESTEROL (Reported) Budesonide/Formoterol Fumarate (Symbicort 80-4.5 Mcg Inhaler) 80 MCG-4.5 MCG/ ACTUATION HFA.AER.AD 2 PUF INH BID BREATHING PROBLEMS (Reported) Fluticasone Propionate 50 MCG/ACTUATION SPRAY.SUSP 2 SPRAY NASB DAILY NEEDED ALLERGIES (Reported) Furosemide (Lasix) 20 MG TABLET 1 TAB PO DAILY LEG SWELLING Gabapentin 300 MG CAPSULE 1 CAP PO QPM NEUROPATHY (Reported) Insulin Aspart (Novolog) (Unknown Strength) VIAL (Unknown Dose) DM sliding scale (Reported) Insulin Glargine,Hum.rec.anlog (Lantus Solostar) 100 UNIT/ML (3 ML) INSULN.PEN 60 UNIT SC QPM DM (Reported) Levothyroxine Sodium 25 MCG TABLET 1 TAB PO DAILY HypoTSH (Reported) Meclizine HCl 25 MG TABLET 1 TAB PO TIDPRN DIZZINESS Metformin HCl 1,000 MG TABLET 1 TAB PO BID DIABETES (Reported) [place]-3 Fatty Acids/Fish Oil (Fish Oil 1,000 MG Capsule) 340 MG-1,000 MG CAPSULE 1 CAP PO DAILY SUPPLEMENT (Reported) Valsartan (Diovan) 40 MG TABLET 1 TAB PO DAILY HEART (Reported) Past History Travel History Traveled to [place] past 21 day No Medical History Neurological: peripheral neuropathy EENT: "EYE LEAKAGE" Cardiovascular: hypertension, hyperlipidemia Respiratory: NONE Gastrointestinal: NONE Hepatic: NONE Renal: NONE Musculoskeletal: NONE Psychiatric: NONE Endocrine: diabetes Blood Disorders: NONE Cancer(s): NONE CORPORATE WEBMASTER/Reproductive: NONE Surgical History Surgical History: non-contributory Past Family/Social History Psychosocial History Services at Home: None ETOH Use: occasional use Illicit Drug Use: denies illicit drug use Review of Systems Review of Systems Constitutional: Reports: see HPI. Exam & Diagnostic Data Last 24 Hrs of Vital Signs/I&O Vital Signs Date Time Temp Pulse Resp B/P B/P Pulse O2 O2 Flow FiO2 Mean Ox Delivery Rate 07/31 2226 96.4 81 20 145/71 97 Room Air / 1903 98.0 86 18 135/66 100 Room Air / 1622 96.4 94 18 157/94 98 Room Air Assessment/Plan Assessment: On admission, Vitals: Stable afebrile, pulse 86, RR 18, BP 135/66, 100% on room air -CBC: No leukocytosis, H/H stable, PLT 511 -BMP: Na 136, Lactic acidosis 2.5, -UA/Microbiology: -Foot xray: Comminuted intra-articular displaced fracture of the right foot 3rd proximal phalanx involving the base and mid shaft of the phalanx. Pathologic fracture would be difficult to exclude as there could be lucent lesion involving mid shaft and base of the phalanx here. -Interventions in ER: Vanco/Unasyn x 1 Problem list/Assessment/Hospital Course: #Right foot 3rd proximal phalanx fracture, possible pathological fractures, Pending rule out osteomyelitis #Lactic acidosis, resolved to 1.3 #Chronic thrombocytosis, unclear etiology #PMHx of T2DM w/ peripheral neuropathy, HTN, HLD, hx of cholecystectomy/ hysterectomy/nephrolithiasis - Admit to General medicine floor, vitals per protocol - Would continue IVF hydration for now - Keep off ABx till OR scheduled by Podiatry in the AM. Patient had received Vanco/Unasyn x 1 in the ER. - Pending OR culture and Podiatry recommendation - If more swelling of RLE, consider dopper to r/o DVT. - Novolin R/AccuCheck q 6/Levemir 30U for the night, will resume 30U BID post-OR - Pending Iron studies/TSHR/25OHD. - Pending endo consult for her diabetes - Pain control per pathway. DVT prophylaxis Pharm PPX + ALPS Regular Diet Full Code As Ranked By This Provider Problem List: 1. Toe fracture, right Core Measures/Misc (11/13) Acute Coronary Syndrome ACS Diagnosis: No Congestive Heart Failure Congestive Heart Failure Diagnosis No Cerebrovascular Accident CVA/TIA Diagnosis: No VTE (View Protocol) VTE Risk Factors Age>40 No Mechanical VTE Prophylaxis d/t N/A MechProphylax Ordered No VTE Pharm Prophylaxis d/t NA PharmProphylax ordered Sepsis (View protocol) Sepsis Present: No If YES complete Sepsis Event Note If YES complete Sepsis Event Note Genesis Kam 08/01/17 0212: Core Measures/Misc (11/13) Sepsis (View protocol) If YES complete Sepsis Event Note If YES complete Sepsis Event Note Resident Review Statement Resident Statement: examined this patient, discussed with international travel consultant, agreed with international travel consultant, amended to note Other Findings: Ms Perrin is a 52 year old woman w/ a PMHx of longstanding uncontrolled insulin treated diabetes ( 18 yrs), class III obesity, hypertension, hyperlipidemia, diabetic neuropathy, hypothyroidsm, chronic knee pain ( on steroid injections every 4months [id number]) was sent to the ER via his primary care provider for swelling and erythema of right foot x 4 days. She was known to be in her usual state of health unti 3 months ago when she developed right ankle swelling, and has started seeing Dr. Wiggins who told her that she has a "debilitating bone diseae". She was offered any intervention, nor she had any tx w/ bisphosphonates. She noticed that she had mild pain and erythema in the right foot four days ago, wcich she ignored. Did not report any injury to her foot. The day after, she noticed that she had swelling, erythema, bleeding and purulent discharge coming from the base of right third toe. She was treated w/ doxycycline by her PCP, and was asked to follow up two days later; and upon examining her foot was asked to the ER. Unfortunately, due to her other committments, she came to the ER on the following day. No report of fever, chills, worseing leg swelling. No SOB, palpitations, or CP. She reported generalized decreased sensations in her lower extremities secondary to diabetes, but no insect bite was reported. She underwent arterail doppler studies, which were apprently normal as per Ms Perrin. No recent prednisone use. She is due to see [facility], Endocrinology and last HbA1c 10.0 done 07/14. At the time of admission-temperature 96.4, pulse rate 94, respiration 18, blood pressure 157/94, pulse ox 98% on room air. General Exam: AAOx3, obese, No acute distress, Skin: No rashes, no breakdown; HEENT: PERRLA, EOMI;Neck: Supple, No JVD; No cervical lymphadenopathy;CVS: Reg Rate, Normal S1,S2, No MGR;Resp: Normal air entry, no ronchi/rales;Abdomen: Soft , No tenderness, Normal Bowel Sounds;Neuro: Normal Speech, Strength 5/5 b/l x 4 extremities, Sensation intact, CN III-XII NL, Reflexes 2+; Extremities: No cyanosis, no pedal edema, ulcer at the base of right toe 1cmx0.5cm in between third and fourth toe, purulent drainage. Dorsalis pedis pulse intact. Decreased range of motion of third toe. Pertinent lab findings: WBC 10.5, hemoglobin 11.5 (baseline 11), platelet count 511 (chronic thrombocytosis) Sodium 136, potassium 4.3, chloride 97, bicarbonate 26, anion gap 13 Renal function-BUN 21, creatinine 0.6. Glucose 224 Lactic acid 2.5-->1.6 Liver chemistries-AST 17, ALT 20, alkaline phosphatase 137 (likely bone) Foot x ray 07/31/17 - Comminuted intra-articular displaced fracture of the right foot 3rd proximal phalanx involving the base and mid shaft of the phalanx. Pathologic fracture would be difficult to exclude as there could be lucent lesion involving mid shaft and base of the phalanx here. Correlate with history of trauma in this region. No plain radiographic evidence of osteomyelitis. No soft tissue air is noted. Degenerative changes in the mid foot. Soft tissue swelling over the dorsum of the foot. Etiology in this case of progressive spread of erythema, warmth, pain likely from superficial infection of skin and subcutaneous tissue causing posisble cellulitis. Given predisposing factors of open wound+ pre-existing diabetic neuropathy, micro-vascular compromise, lymphedema from obesity, cellulitis needs to be considered. Since the patient has history of diabetes, etiology could be from polymicrobial microbes with gram-negative rods, anaerobes, strep and staph. Differentials to be considered osteomyelitis. Necrotizing fasciitis should be kept in differential always. Osteomyelitis needs to be ruled out. In regards to her radiological findings s/o comminuted fracture points towards some pathological process such as osteoporosis or osteopenia contributing to it. There is a lot of new evidence in the last decade or so, that obesity and metabolic syndrome are associated w/ abnormal bone disorders. Both adipocytes and osteoblasts are derived from a common MSCs, obesity may increase adipocyte differentiation and fat accumulation while decrease osteoblast differentiation and bone formation. Slighly elvated alk phos, points to possibly bone destruction. Multiple myeloma is in the differential, but remote. Another point to think about is the chronic use of intra-articular steroids for more than 7-8 yrs, which could have contributed, but very unlikely given the little amount of systemic absorption. Problem list: 1. Comminuted intra-articular displaced fracture of the right foot 3rd proximal phalanx 2. Mild chronic thrombocytosis ( likely reactive ) 3. Anemia ( ? anemia of chronic diseases) 4. Type 2 diabetes 5. HLD 6. Foot ulcer ( not on weight bearing areas ) Plan: - Admit the patient to general medicine service - Monitor vitals every shift. - Blood cultures 2, although can be negative in many cases. - Skin marking, for progression/improvement of erythema - Vascular imaging- ultrasound Doppler venous to rule out DVT, if she develops swelling of entire right lower extremity. - If necrotizing fasciitis is in the differential, while in the clinical course CT should be considered. - Analgesics as needed - Extremity elevation - In patients with diabetes, IV Unasyn+ IV vancomycin (MRSA), which are on hold given uncertainity of the surgeons plan. If he plans to get bone biopsy, stop abx since she got the dose in the ER, and restart after surgery. Tailor pending OR and blood culutre results. ID consult. - Trend lactate - Check Iron studies, TSHR. - Check 25OH vitamin D - Continue 30 U levemir BID for now. And, novolin npo sliding scale. - Hold all oral hypoglycmeic drugs - NPO for possible procedure- debridement vs amputation ( as per Dr. Wiggins ) Housekeeping cheklist: 1. DVT PPx-pharm 2. GI Ppx-protonix prn 3. Full code 4. Med Rec done 5. Consults- ID, Podiatry. Haja LEAL, [facility] 08/01/17 0306: Core Measures/Misc (11/13) Sepsis (View protocol) If YES complete Sepsis Event Note If YES complete Sepsis Event Note Attending MD Review Statement Attending Statement Attending MD Statement: examined this patient, discuss w/resident/PA/SPANISH MOSS PICKER, agreed w/resident/PA/SPANISH MOSS PICKER, reviewed images, amended to note Attending Assessment/Plan: 52 yo morbidly obese F with h/o uncontrolled T2DM on insulin with neuropathy, HTN, hypothyroidism, nephrolithiasis, chronic knee pain on steroid injections, is here for evaluation of right 3rd toe infection. Symptoms started 4 days ago with erythema followed by purulent discharge. Patient's PCP prescribed Doxycycline [facility] patient started taking on Monday and was to follow up on Monday but she comes in today (Monday). The swelling and erythema did improve as per patient. She denies any trauma. No prior h/o osteomyelitis. Patient has bilateral foot swelling for which she uses compression stockings and lasix. She has been seen by Dr. Wiggins in the past. Vitals stable. Right foot: ulcer noted to base of third toe and in between 3rd and 4th toe with purulent discharge, erythema noted to third toe and diffuse swelling to the feet. Labs: no leukocytosis, normocytic anemia, Na 136, BUN 21, glucose 224, lactic acid 2.5 --> 1.6, trop neg. UA neg. Right foot Xray: comminuted intra-articular displaced fracture of right foot 3rd proximal phalanx involving base and mid-shaft of phalanx. Soft tissue swelling over the dorsum of foot. Degenerative changes in mid foot. No soft tissue air. Assessment and plan: 1. Right foot 3rd toe ulcer with cellulitis 2. Rule out osteomyelitis 3. Incidentally noted comminuted intra-articular displaced fracture of 3rd proximal phalanx 4. Uncontrolled Type 2 diabetes on insulin 5. Essential hypertension 6. Peripheral neuropathy 7. Normocytic anemia - Admit to General medicine - Blood cultures - NPO after midnight for possible OR for ?debridement - Podiatry consult - Patient received IV Unasyn and Vanco in ER, will hold off antibiotics until procedure in AM - ID consult - Gentle hydration - Pain management with tramadol PRN - Accucheks, insulin NPO SS. Hold OHA. - Obtain Endo consult - Check vit D levels, TSH, B12 - Obtain baseline EKG DVT ppx Lovenox. Full code.
[2017-07-31] MEDS ORDERED: LANTUS SOL100 UNIT/1 SC (23:05)
[2017-07-31] MEDS ORDERED: LEVOTHYROXINE25 MCG PO (23:07)
[2017-07-31] MEDS ORDERED: NOVOLOG100 UNIT/2 (23:08)
--- NOTE | 2017-08-01 00:19 | Admission Certification ---
Admission Certification Certification Statement - As attending physician, I certify that at the time of - admission, based on clinical presentation, severity of - symptoms, need for further diagnostic testing and - therapeutic interventions, and risk of adverse outcomes - without in-hospital treatment, in my clinical assessment, - this patient requires an acute hospital stay for a minimum - of two nights or longer. I have also considered psychsocial - factors such as support system, advanced age, financial - issues, cognitive issues, and failed out-patient treatments, - past re-admission history, safety of patient, and lack of - compliance as applicable. Specific rationale supporting this admission is: Right foot 3rd toe ulcer with cellulitis, rule out osteomyelitis.
[2017-08-01 05:46] LABS: ABSOLUTE BASOPHIL COUNT 0.1 /CUMM (0.0-0.2); ABSOLUTE EOSINOPHIL COUNT 0.5 /CUMM (0.0-0.7); ABSOLUTE GRANULOCYTE CT 6.1 /CUMM (1.4-6.5); ABSOLUTE LYMPH COUNT 3.1 /CUMM (1.2-3.4); ABSOLUTE MONOCYTE COUNT 0.5 /CUMM (0.10-0.60); BASOPHIL % 0.8 % (0.0-2.0); EOSINOPHIL % 4.5 % (0-5); GRANULOCYTE % 59.6 % (42.2-75.2); HEMATOCRIT 34.2 % (37-47); MEAN CORPUSCULAR HGB 27.5 PG (27.0-31.0); MEAN CORPUSCULAR HGB CONC 33.8 G/DL (33.0-37.0); MEAN CORPUSCULAR VOLUME 81.5 FL (81.0-99.0); MEAN PLATELET VOLUME 7.9 FL (7.4-10.4); PLATELET COUNT 463 /CUMM (130-400); RBC DISTRIBUTION WIDTH 14.4 % (11.5-14.5); RED BLOOD CELL CT 4.19 /CUMM (4.20-5.40); WHITE BLOOD CELL COUNT 10.2 /CUMM (4.8-10.8)
--- NOTE | 2017-08-01 09:22 | RADIOLOGY REPORT ---
EXAMINATION: XR PORTABLE CHEST CLINICAL INFORMATION: Preoperative examination. COMPARISON: Prior chest radiograph, most recently 02/27/2017. TECHNIQUE: Portable frontal view of the chest was obtained. FINDINGS: The heart, great vessels, pulmonary vasculature and mediastinum are stable. The heart size is at least top normal. No congestive heart failure is seen. Lung volumes are low. There is stable mild to moderate elevation of the right hemidiaphragm. No focal infiltrate, effusion or pneumothorax is seen. There is no acute osseous abnormality. IMPRESSION: No active cardiopulmonary disease. There is no significant interim change.
[2017-08-01 10:06] LABS: PT 11.7 SEC (9.4-12.5)
--- NOTE | 2017-08-01 10:51 | PN- Housestaff ---
See Addendum Subjective Follow-up For: Right foot 3rd toe ulcer with cellulitis Incidentally noted comminuted intra-articular displaced fracture of 3rd proximal phalanx Subjective: Anxious about the procedure. No fevers or chills overnight. Review of Systems Constitutional: Reports: see HPI. Objective Last 24 Hrs of Vital Signs/I&O Vital Signs Date Time Temp Pulse Resp B/P B/P Pulse O2 O2 Flow FiO2 Mean Ox Delivery Rate 08/01 0808 98.3 / 0757 98.3 86 20 135/73 96 Room Air / 0510 95.0 80 18 134/74 97 Room Air / 2226 96.4 81 20 145/71 97 Room Air / 1903 98.0 86 18 135/66 100 Room Air / 1622 96.4 94 18 157/94 98 Room Air Intake & Output 08/01 1600 08/01 0800 08/01 0000 Intake Total 0 Output Total Balance 0 Intake, Oral 0 Patient 253 lb Weight Weight Reported by Patient Measurement Method Physical Exam General Appearance: Alert, Oriented X3, Cooperative Cardiovascular: Regular Rate, Normal S1, Normal S2 Lungs: Clear to Auscultation, Normal Air Movement Abdomen: Normal Bowel Sounds, Soft Extremities: No Clubbing, No Cyanosis, No Edema Current Medications: Current Medications Sig/Contreras Start time Last Medication Dose Route Stop Time Status Admin Acetaminophen 0 .STK-MED ONE 08/01 0815 DC IV Acetaminophen 1,000 MG ONCE ONE 08/01 0800 DC 08/01 N/A 1 UNIT IV 08/01 0814 0808 Acetaminophen 650 MG Q6P PRN 07/31 2300 AC PO Ampicillin Sodium/ 0 .STK-MED ONE 07/31 2155 DC Sulbactam Sodium .ROUTE Ampicillin Sodium/ 1,500 MG ONCE ONE 07/31 2130 DC 07/31 Sulbactam Sodium IV 07/31 2159 2155 Sodium Chloride 100 ML Atorvastatin Calcium 20 MG 1700 08/01 1700 AC PO Budesonide/ 2 PUF BID 08/01 09 AC 08/01 Formoterol Fumarate INH 1000 Dextrose/Sodium 1,000 ML Q10H 07/31 2355 DC 08/01 Chloride IV 08/01 0954 0039 Fluticasone 2 SPRAY DAILY NEEDED PRN 07/31 2330 AC Propionate ELISEO Furosemide 20 MG DAILY 08/01 0900 AC PO Gabapentin 300 MG QPM PRN 07/31 2345 AC PO Insulin Detemir 30 UNITS BID 08/01 2100 AC SC Insulin Detemir 30 UNITS ONCE ONE 07/31 2345 DC 08/01 SC 07/31 2346 0039 Insulin Human Regular 0 Q6 07/31 2359 AC 08/01 SC 0538 Levothyroxine Sodium 0.025 MG DAILY AC 08/01 0700 AC 08/01 PO 0944 Meclizine HCl 25 MG TID PRN 07/31 2330 AC PO Morphine Sulfate 2 MG Q8P PRN 08/01 0215 AC IV Oxycodone HCl 5 MG Q6H PRN 07/31 2345 CAN PO Oxycodone HCl 0 .STK-MED ONE 07/31 2314 DC PO Oxycodone HCl 5 MG Q6H 07/31 2300 DC 07/31 PO 2308 Tramadol HCl 50 MG Q8P PRN 08/01 0215 AC PO Vancomycin HCl 0 .STK-MED ONE 07/31 2155 DC .ROUTE Vancomycin HCl 1,000 MG ONCE ONE 07/31 2130 DC 07/31 Sodium Chloride 250 ML IV 07/31 2229 2216 Last 24 Hrs of Lab/Allen Results Last 24 Hrs of Labs/Mics: Laboratory Tests 08/01/17 0947: PT 11.7, INR 1.07 08/01/17 0530: Anion Gap 12, Estimated GFR > 60, BUN/Creatinine Ratio 32.0 H, CBC w Diff NO MAN DIFF REQ, RBC 4.19 L, MCV 81.5, MCH 27.5, MCHC 33.8, RDW 14.4, MPV 7.9, Gran % 59.6, Lymphocytes % 30.4, Monocytes % 4.7, Eosinophils % 4.5, Basophils % 0.8, Absolute Granulocytes 6.1, Absolute Lymphocytes 3.1, Absolute Monocytes 0.5 , Absolute Eosinophils 0.5, Absolute Basophils 0.1 08/01/17 0014: Urinalysis HEAVY H, Urine Color YEL, Urine Clarity HAZY H, Urine pH 6.0, Ur Specific [place] >= 1.030, Urine Protein 100 H, Urine Ketones NEG, Urine Nitrite NEG, Urine Bilirubin NEG, Urine Urobilinogen 0.2, Ur Leukocyte Esterase TRACE H, Ur Microscopic SEDIMENT EXAMINED, Urine WBC 3-5 H, Ur Epithelial Cells MOD H, Urine Bacteria MOD H, Urine Hemoglobin NEG, Urine Glucose 500 H 07/31/172: Lactic Acid 1.6 07/31/171999: Anion Gap 13, Estimated GFR > 60, BUN/Creatinine Ratio 35.0 H, Glucose 224 H, Lactic Acid 2.5 H, Calcium 9.4, Iron 51, TIBC 351, Ferritin 48.2, Total Bilirubin 0.3, AST 17, ALT 20, Alkaline Phosphatase 137 H, Troponin I < 0.01, Total Protein 7.2, Albumin 3.5, Globulin 3.7, Albumin/Globulin Ratio 0.9 L, Vitamin B12 291, 25-OH Vitamin D Total 8.2 L, Free T4 1.30, Total T3 1.24, TSH &T3 &Free T4 Intrp 4.340 H, CBC w Diff NO MAN DIFF REQ, RBC 4.19 L, MCV 81.4, MCH 27.4, MCHC 33.7, RDW 14.4, MPV 7.9, Gran % 60.2, Lymphocytes % 30.3, Monocytes % 5.2, Eosinophils % 3.6, Basophils % 0.7, Absolute Granulocytes 6.3, Absolute Lymphocytes 3.2, Absolute Monocytes 0.5, Absolute Eosinophils 0.4, Absolute Basophils 0.1 Microbiology 07/31 2016 BLOOD: Blood Culture - RECD 08/01 1999 BLOOD: Blood Culture - RECD Assessment/Plan Assessment: 52-year-old woman with uncontrolled type 2 diabetes on insulin, peripheral neuropathy presented to [facility] ED with complaints of worsening right third toe erythema, not improving with p.o. doxycycline incidentally found to have comminuted intra-articular displaced fracture of third proximal phalanx to the OR with Dr. Wiggins later today. Right foot 3rd toe ulcer with cellulitis: Continue n.p.o. status. To the OR later today. Hold off antibiotics. Incidentally noted comminuted intra-articular displaced fracture of 3rd proximal phalanx. Await podiatry recommendations. To the OR later today. Uncontrolled type 2 diabetes. Continue Levemir and insulin sliding scale n.p.o. Await endocrinology recommended. Revised cardiac risk index. Class II risk, 0.9% risk of major cardiovascular periprocedural event for a fairly low risk surgery. EKG, urinalysis and chest x-ray reviewed. Full code. DVT prophylaxis with Alps. N.p.o. status. Problem List: 1. Fracture of distal phalanx of toe of right foot 2. Cellulitis of foot, right Pain Ratin Pain Location: Rt foot Pain Goal: Pain 4 or less Pain Plan: Morphine and Tylenol. Tomorrow's Labs & Rationales: Post Op
--- NOTE | 2017-08-01 12:05 | Operative Report ---
Operative/Inv Procedure Report Surgery Date: 08/01/17 Name of Procedure: 1 open incision and drainage deep to the deep fascia with exposure of the extensor and flexor tendon and tendon sheath multiple sites right foot 2 open, partial third ray resection right foot 3 excisional debridement Pre-Operative Diagnosis: 1 open necrotic wound right foot 2 osteomyelitis right foot 3 diabetic peripheral neuropathy Post-Operative Diagnosis: The same Estimated Blood Loss: less than 50ml Surgeon/Yoke Presser: MARYLIN ZELAYA DPM Anesthesia: moderate sedation, block Operative/Procedure Note Note: After obtaining informed consent the patient was brought to the operating room placed on the operating table in the supine position. The patient isn't securely fastened to the operating table utilizing safety belt. After administration of IV sedation, 10 mL of 0.5% Marcaine plain was infiltrated about the patient's right ankle. Right foot and ankle within scrubbed, prepped and draped in usual aseptic manner. Attention directed to the right foot, where a necrotic was identified involving the distal third ray. A 15 blade was utilized sharply revised skin margins. Dissection was then carried down deep to the deep fascia with exposure of the extensor and flexor tendon and tendon sheath multiple sites, both proximally and distally. All necrotic, nonviable infected tissue sharply evacuated from the wound bed. Dissection and continued onto the capsular structures the level metatarsal phalangeal joint which were freed and the distal osseous segment was passed from the operative field. Specimen sent for both microbiologic and pathologic inspection. The open wound was then irrigated with 3 L of normal sterile saline infusion 50,000 units of bacitracin. Following this, the foot was redraped and the surgeon's top gloves were changed clean gloves. Any bleeding vessels identified were cauterized or ligated as encountered. Nipple was then packed with iodoform and 3-0 nylon retention sutures were placed. Foot was then dressed with 4 x 4's, Kerlix and an Dev[place] wrap. The patient was noted to tolerate both procedure and anesthesia well and the patient was transported from the operating room to recovery with vital signs stable.
--- NOTE | 2017-08-01 13:41 | Cons- Endocrinology ---
General Information and HPI Consulting Request Date of Consult: 08/01/17 Requested By: medical team Reason for Consult: management of uncontrolled diabetes type 2 Source of Information: patient Exam Limitations: no limitations History of Present Illness: This 52 y/o female w/ PMH of T2DM x 18 yrs with HbA1c of 10%, peripheral neuropathy, HTN, HLD, Hypothyroidism, presented to the ER for her right foot infection in her right 3rd toe. She has been kept NPO for procedure today. At home, she was on Lantus 60 units daily, metformin 1000 mg twice a day and Novolog coverage before meals. In hospital, she is on Levemir 30 units twice a day, RISS every 6 hours. Her FSGs were 175 and 150. Allergies/Medications Allergies: Coded Allergies: clindamycin (Mild, ITCHY 04/06/17) Penicillins (UNKNOWN 04/06/17) Home Med List: Aspirin (Ecotrin*) 81 MG TABLET.DR 1 TAB PO DAILY HEART HEALTH (Reported) Atorvastatin Calcium 20 MG TABLET 1 TAB PO DAILY CHOLESTEROL (Reported) Budesonide/Formoterol Fumarate (Symbicort 80-4.5 Mcg Inhaler) 80 MCG-4.5 MCG/ ACTUATION HFA.AER.AD 2 PUF INH BID BREATHING PROBLEMS (Reported) Fluticasone Propionate 50 MCG/ACTUATION SPRAY.SUSP 2 SPRAY NASB DAILY NEEDED ALLERGIES (Reported) Furosemide (Lasix) 20 MG TABLET 1 TAB PO DAILY LEG SWELLING Gabapentin 300 MG CAPSULE 1 CAP PO QPM NEUROPATHY (Reported) Insulin Aspart (Novolog) (Unknown Strength) VIAL (Unknown Dose) DM sliding scale (Reported) Insulin Glargine,Hum.rec.anlog (Lantus Solostar) 100 UNIT/ML (3 ML) INSULN.PEN 60 UNIT SC QPM DM (Reported) Levothyroxine Sodium 25 MCG TABLET 1 TAB PO DAILY HypoTSH (Reported) Meclizine HCl 25 MG TABLET 1 TAB PO TIDPRN DIZZINESS Metformin HCl 1,000 MG TABLET 1 TAB PO BID DIABETES (Reported) [place]-3 Fatty Acids/Fish Oil (Fish Oil 1,000 MG Capsule) 340 MG-1,000 MG CAPSULE 1 CAP PO DAILY SUPPLEMENT (Reported) Valsartan (Diovan) 40 MG TABLET 1 TAB PO DAILY HEART (Reported) Review of Systems Review of Systems Constitutional: Reports: see HPI. Cardiovascular: Denies: chest pain. Respiratory: Denies: short of breath. GI: Denies: abdominal pain. Musculoskeletal: Reports: see HPI (right foot infection). Hematologic/Endocrine: Denies: polyuria, polydipsia. 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 Surgical History Surgical History: non-contributory Psychosocial History Services at Home: None Smoking Status: Unknown If Ever Smoked ETOH Use: occasional use Illicit Drug Use: denies illicit drug use Exam & Diagnostic Data Last 24 Hrs of Vital Signs/I&O Vital Signs Date Time Temp Pulse Resp B/P B/P Pulse O2 O2 Flow FiO2 Mean Ox Delivery Rate 08/01 1054 98.3 08/01 1049 98.3 87 18 157/81 97 Room Air 08/01 0808 98.3 08/01 0757 98.3 86 20 135/73 96 Room Air 08/01 0510 95.0 80 18 134/74 97 Room Air / 2226 96.4 81 20 145/71 97 Room Air / 1903 98.0 86 18 135/66 100 Room Air / 1622 96.4 94 18 157/94 98 Room Air Intake & Output 08/01 1600 08/01 0800 08/01 0000 Intake Total 0 Output Total Balance 0 Intake, Oral 0 Patient 253 lb Weight Weight Reported by Patient Measurement Method Physical Exam General Appearance: no apparent distress Neck: normal inspection Respiratory: lungs clear Cardiovascular: regular rate/rhythm Gastrointestinal: soft, non-tender Extremities: normal inspection (right foot infection) Labs/Allen Results: Laboratory Tests 08/01 08/01 0947 0530 Chemistry Sodium (137 - 145 mmol/L) 139 Potassium (3.5 - 5.1 mmol/L) 3.8 Chloride (98 - 107 mmol/L) 103 Carbon Dioxide (22 - 30 mmol/L) 24 Anion Gap (5 - 16) 12 BUN (7 - 17 mg/dL) 16 Creatinine (0.5 - 1.0 mg/dL) 0.5 Estimated GFR (>60 ml/min) > 60 BUN/Creatinine Ratio (7 - 25 %) 32.0 H Coagulation PT (9.4 - 12.5 SEC) 11.7 INR (0.90 - 1.19) 1.07 Hematology CBC w Diff NO MAN DIFF REQ WBC (4.8 - 10.8 /CUMM) 10.2 RBC (4.20 - 5.40 /CUMM) 4.19 L Hgb (12.0 - 16.0 G/DL) 11.5 L Hct (37 - 47 %) 34.2 L MCV (81.0 - 99.0 FL) 81.5 MCH (27.0 - 31.0 PG) 27.5 MCHC (33.0 - 37.0 G/DL) 33.8 RDW (11.5 - 14.5 %) 14.4 Plt Count (130 - 400 /CUMM) 463 H MPV (7.4 - 10.4 FL) 7.9 Gran % (42.2 - 75.2 %) 59.6 Lymphocytes % (20.5 - 51.1 %) 30.4 Monocytes % (1.7 - 9.3 %) 4.7 Eosinophils % (0 - 5 %) 4.5 Basophils % (0.0 - 2.0 %) 0.8 Absolute Granulocytes (1.4 - 6.5 /CUMM) 6.1 Absolute Lymphocytes (1.2 - 3.4 /CUMM) 3.1 Absolute Monocytes (0.10 - 0.60 /CUMM) 0.5 Absolute Eosinophils (0.0 - 0.7 /CUMM) 0.5 Absolute Basophils (0.0 - 0.2 /CUMM) 0.1 08/01 06/04 0014 2222 Chemistry Lactic Acid (0.7 - 2.1 mmol/L) 1.6 Urines Urinalysis HEAVY H Urine Color (YEL,AMB,STR) YEL Urine Clarity (CLEAR) HAZY H Urine pH (5.0 - 8.0) 6.0 Ur Specific [place] (1.001 - 1.035) >= 1.030 Urine Protein (NEG,<30 MG/DL) 100 H Urine Ketones (NEG) NEG Urine Nitrite (NEG) NEG Urine Bilirubin (NEG) NEG Urine Urobilinogen (0.1 - 1.0 EU/dl) 0.2 Ur Leukocyte Esterase (NEG) TRACE H Ur Microscopic SEDIMENT EXAMINED Urine WBC (0 - 2 /HPF) 3-5 H Ur Epithelial Cells (NONE,FEW) MOD H Urine Bacteria (NEG/NONE) MOD H Urine Hemoglobin (NEG) NEG Urine Glucose (N MG/DL) 500 H 08/01 1999 Chemistry Sodium (137 - 145 mmol/L) 136 L Potassium (3.5 - 5.1 mmol/L) 4.3 Chloride (98 - 107 mmol/L) 97 L Carbon Dioxide (22 - 30 mmol/L) 26 Anion Gap (5 - 16) 13 BUN (7 - 17 mg/dL) 21 H Creatinine (0.5 - 1.0 mg/dL) 0.6 Estimated GFR (>60 ml/min) > 60 BUN/Creatinine Ratio (7 - 25 %) 35.0 H Glucose (65 - 99 mg/dL) 224 H Lactic Acid (0.7 - 2.1 mmol/L) 2.5 H Calcium (8.4 - 10.2 mg/dL) 9.4 Iron (37 - 170 ug/dL) 51 TIBC (265 - 497 ug/dL) 351 Ferritin (11.1 - 264 ng/mL) 48.2 Total Bilirubin (0.2 - 1.3 mg/dL) 0.3 AST (14 - 36 U/L) 17 ALT (9 - 52 U/L) 20 Alkaline Phosphatase (<127 U/L) 137 H Troponin I (< 0.11 ng/ml) < 0.01 Total Protein (6.3 - 8.2 g/dL) 7.2 Albumin (3.5 - 5.0 g/dL) 3.5 Globulin (1.9 - 4.2 gm/dL) 3.7 Albumin/Globulin Ratio (1.1 - 2.2 %) 0.9 L Vitamin B12 (239 - 931 pg/mL) 291 25-OH Vitamin D Total (30 - 100 ng/ml) 8.2 L Free T4 (0.64 - 1.79 ng/dL) 1.30 Total T3 (0.97 - 1.69 ng/mL) 1.24 TSH &T3 &Free T4 Intrp (0.270 - 4.20 uIU/mL) 4.340 H Hematology CBC w Diff NO MAN DIFF REQ WBC (4.8 - 10.8 /CUMM) 10.5 RBC (4.20 - 5.40 /CUMM) 4.19 L Hgb (12.0 - 16.0 G/DL) 11.5 L Hct (37 - 47 %) 34.1 L MCV (81.0 - 99.0 FL) 81.4 MCH (27.0 - 31.0 PG) 27.4 MCHC (33.0 - 37.0 G/DL) 33.7 RDW (11.5 - 14.5 %) 14.4 Plt Count (130 - 400 /CUMM) 511 H MPV (7.4 - 10.4 FL) 7.9 Gran % (42.2 - 75.2 %) 60.2 Lymphocytes % (20.5 - 51.1 %) 30.3 Monocytes % (1.7 - 9.3 %) 5.2 Eosinophils % (0 - 5 %) 3.6 Basophils % (0.0 - 2.0 %) 0.7 Absolute Granulocytes (1.4 - 6.5 /CUMM) 6.3 Absolute Lymphocytes (1.2 - 3.4 /CUMM) 3.2 Absolute Monocytes (0.10 - 0.60 /CUMM) 0.5 Absolute Eosinophils (0.0 - 0.7 /CUMM) 0.4 Absolute Basophils (0.0 - 0.2 /CUMM) 0.1 Assessment/Plan Assessment/Plan This 52 y/o female w/ PMH of T2DM x 18 yrs with HbA1c of 10%, peripheral neuropathy, HTN, HLD, Hypothyroidism, presented to the ER for her right foot infection in her right 3rd toe. She has been kept NPO for procedure today. At home, she was on Lantus 60 units daily, metformin 1000 mg twice a day and Novolog coverage before meals. In hospital, she is on Levemir 30 units twice a day, RISS every 6 hours. Her FSGs were 175 and 150. Plan: 1. decrease Levemir to 24 units twice a day; 2. continue RISS every 6 hours while she is NPO as she is on D5 1/2 NS at 100 ml/hour; 3. after she is back from the procedure and when she is ready to eat: --- stop IVF; ---start consistent carbohydrates 1 diet; ---stop RISS every 6 hours; ---start Novolog coverage before meals and novolog coverage at bedtime; detail see the inpatient DM orders; ---monitor FSGs. will follow. Inpatient Diabetes Orders Before Each Meal: Bolus Insulin: Novolog < 80 mg/dl: no coverage 80-100 mg/dl: 6 units 101-120 mg/dl: 6 units 121-150 mg/dl: 6 units 151-200 mg/dl: 8 units 201-250 mg/dl: 10 units 251-300 mg/dl: 12 units 301-350 mg/dl: 14 units 351-400 mg/dl: 16 units > 400 mg/dl: 18 units Bedtime: Bolus Insulin: Novolog < 80 mg/dl: no coverage 80-100 mg/dl: no coverage 101-120 mg/dl: no coverage 121-150 mg/dl: no coverage 151-200 mg/dl: no coverage 201-250 mg/dl: 2 units 251-300 mg/dl: 3 units 301-350 mg/dl: 4 units 351-400 mg/dl: 5 units > 400 mg/dl: 6 units Consult Acknowledgment - Thank you for your consult request.
[2017-08-01 14:55] VITALS: BP 123/72
--- NOTE | 2017-08-01 16:21 | Cons- Infect Disease ---
General Information and HPI Consulting Request Date of Consult: 08/01/17 Requested By: Ángel Wesley MD Reason for Consult: Osteomyelitis of the right third toe Source of Information: patient, old records History of Present Illness: This is a 52-year-old woman with a history of hypertension, hypothyroidism, diabetes, with a peripheral neuropathy, nephrolithiasis, osteoarthritis, status post periodic steroid injections in her right knee, admitted on July 31 with swelling, erythema and purulent discharge from the right third toe, associated with chills, not responsive to 4 days of Doxycycline. On admission she was afebrile. Laboratory data revealed a white blood cell count of 10.5, BUN/ creatinine 21 and 0.6, lactic acid 2.5, alkaline phosphatase 137. Urinalysis 3- 5 WBCs. X-ray of the right foot revealed a comminuted intra-articular displaced fracture of the right third toe involving the base and mid shaft of the phalanx, with no soft tissue air or evidence of osteomyelitis. She was given 1 dose each of Vancomycin and Unasyn in the emergency room and was then followed off antibiotics. She has remained afebrile overnight. She was taken to the OR this afternoon for an open partial third ray resection of the right foot. At present she does note some discomfort in the right foot. She does report a "clicking" sensation in the right third toe over the past week prior to admission but denies any trauma to the toe or foot. Allergies/Medications Allergies: Coded Allergies: clindamycin (Mild, ITCHY 04/06/17) Penicillins (UNKNOWN 04/06/17) Home Med List: Aspirin (Ecotrin*) 81 MG TABLET.DR 1 TAB PO DAILY HEART HEALTH (Reported) Atorvastatin Calcium 20 MG TABLET 1 TAB PO DAILY CHOLESTEROL (Reported) Budesonide/Formoterol Fumarate (Symbicort 80-4.5 Mcg Inhaler) 80 MCG-4.5 MCG/ ACTUATION HFA.AER.AD 2 PUF INH BID BREATHING PROBLEMS (Reported) Fluticasone Propionate 50 MCG/ACTUATION SPRAY.SUSP 2 SPRAY NASB DAILY NEEDED ALLERGIES (Reported) Furosemide (Lasix) 20 MG TABLET 1 TAB PO DAILY LEG SWELLING Gabapentin 300 MG CAPSULE 1 CAP PO QPM NEUROPATHY (Reported) Insulin Aspart (Novolog) (Unknown Strength) VIAL (Unknown Dose) DM sliding scale (Reported) Insulin Glargine,Hum.rec.anlog (Lantus Solostar) 100 UNIT/ML (3 ML) INSULN.PEN 60 UNIT SC QPM DM (Reported) Levothyroxine Sodium 25 MCG TABLET 1 TAB PO DAILY HypoTSH (Reported) Meclizine HCl 25 MG TABLET 1 TAB PO TIDPRN DIZZINESS Metformin HCl 1,000 MG TABLET 1 TAB PO BID DIABETES (Reported) [place]-3 Fatty Acids/Fish Oil (Fish Oil 1,000 MG Capsule) 340 MG-1,000 MG CAPSULE 1 CAP PO DAILY SUPPLEMENT (Reported) Valsartan (Diovan) 40 MG TABLET 1 TAB PO DAILY HEART (Reported) Past History Travel History Traveled to [place] past 21 day No Medical History Blood Transfusion Hx: No Neurological: peripheral neuropathy EENT: NONE Cardiovascular: hypertension, hyperlipidemia Respiratory: NONE Gastrointestinal: NONE Hepatic: NONE Renal: NONE Musculoskeletal: NONE Psychiatric: NONE Endocrine: diabetes, hypothyroidism Blood Disorders: NONE Cancer(s): NONE 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 Home Services at Home: None Smoking Status: Unknown If Ever Smoked ETOH Use: occasional use Illicit Drug Use: denies illicit drug use Review of Systems Review of Systems All Other Systems: Reviewed and Negative Exam & Diagnostic Data Last 24 Hrs of Vital Signs/I&O Vital Signs Date Time Temp Pulse Resp B/P B/P Pulse O2 O2 Flow FiO2 Mean Ox Delivery Rate 08/01 1457 96 Nasal 2.0L Cannula 08/01 1455 99.0 80 20 123/72 96 Nasal 2.0L Cannula 08/01 1054 98.3 / 1049 98.3 87 18 157/81 97 Room Air 06/05 0808 98.3 06/ 0757 98.3 86 20 135/73 96 Room Air /05 0510 95.0 80 18 134/74 97 Room Air 06/04 2226 96.4 81 20 145/71 97 Room Air 06/ 1903 98.0 86 18 135/66 100 Room Air 06/ 1622 96.4 94 18 157/94 98 Room Air Intake & Output / 1600 06/05 0800 06/05 0000 Intake Total 0 Output Total Balance 0 Intake, Oral 0 Patient 253 lb 253 lb Weight Weight Reported by Patient Reported by Patient Measurement Method Physical Exam Other Physical Findings: She is awake and alert in no acute distress. She is afebrile. Skin reveals no rash. HEENT exam is negative. Neck is supple with no adenopathy. Lungs are clear. Heart regular rhythm with no murmur. Abdomen is obese, soft, nontender with positive bowel sounds. Back no CVA tenderness. Extremities right foot dressing intact, with no erythema or edema of the right leg; left foot with no inflammation, with 2+ pulses. Neuro neuropathy both feet. Last 24 Hours of Lab Results: Laboratory Tests 08/01 08/01 0947 0530 Chemistry Sodium (137 - 145 mmol/L) 139 Potassium (3.5 - 5.1 mmol/L) 3.8 Chloride (98 - 107 mmol/L) 103 Carbon Dioxide (22 - 30 mmol/L) 24 Anion Gap (5 - 16) 12 BUN (7 - 17 mg/dL) 16 Creatinine (0.5 - 1.0 mg/dL) 0.5 Estimated GFR (>60 ml/min) > 60 BUN/Creatinine Ratio (7 - 25 %) 32.0 H Coagulation PT (9.4 - 12.5 SEC) 11.7 INR (0.90 - 1.19) 1.07 Hematology CBC w Diff NO MAN DIFF REQ WBC (4.8 - 10.8 /CUMM) 10.2 RBC (4.20 - 5.40 /CUMM) 4.19 L Hgb (12.0 - 16.0 G/DL) 11.5 L Hct (37 - 47 %) 34.2 L MCV (81.0 - 99.0 FL) 81.5 MCH (27.0 - 31.0 PG) 27.5 MCHC (33.0 - 37.0 G/DL) 33.8 RDW (11.5 - 14.5 %) 14.4 Plt Count (130 - 400 /CUMM) 463 H MPV (7.4 - 10.4 FL) 7.9 Gran % (42.2 - 75.2 %) 59.6 Lymphocytes % (20.5 - 51.1 %) 30.4 Monocytes % (1.7 - 9.3 %) 4.7 Eosinophils % (0 - 5 %) 4.5 Basophils % (0.0 - 2.0 %) 0.8 Absolute Granulocytes (1.4 - 6.5 /CUMM) 6.1 Absolute Lymphocytes (1.2 - 3.4 /CUMM) 3.1 Absolute Monocytes (0.10 - 0.60 /CUMM) 0.5 Absolute Eosinophils (0.0 - 0.7 /CUMM) 0.5 Absolute Basophils (0.0 - 0.2 /CUMM) 0.1 08/01 07/31 0014 2222 Chemistry Lactic Acid (0.7 - 2.1 mmol/L) 1.6 Urines Urinalysis HEAVY H Urine Color (YEL,AMB,STR) YEL Urine Clarity (CLEAR) HAZY H Urine pH (5.0 - 8.0) 6.0 Ur Specific [place] (1.001 - 1.035) >= 1.030 Urine Protein (NEG,<30 MG/DL) 100 H Urine Ketones (NEG) NEG Urine Nitrite (NEG) NEG Urine Bilirubin (NEG) NEG Urine Urobilinogen (0.1 - 1.0 EU/dl) 0.2 Ur Leukocyte Esterase (NEG) TRACE H Ur Microscopic SEDIMENT EXAMINED Urine WBC (0 - 2 /HPF) 3-5 H Ur Epithelial Cells (NONE,FEW) MOD H Urine Bacteria (NEG/NONE) MOD H Urine Hemoglobin (NEG) NEG Urine Glucose (N MG/DL) 500 H 08/01 1999 Chemistry Sodium (137 - 145 mmol/L) 136 L Potassium (3.5 - 5.1 mmol/L) 4.3 Chloride (98 - 107 mmol/L) 97 L Carbon Dioxide (22 - 30 mmol/L) 26 Anion Gap (5 - 16) 13 BUN (7 - 17 mg/dL) 21 H Creatinine (0.5 - 1.0 mg/dL) 0.6 Estimated GFR (>60 ml/min) > 60 BUN/Creatinine Ratio (7 - 25 %) 35.0 H Glucose (65 - 99 mg/dL) 224 H Lactic Acid (0.7 - 2.1 mmol/L) 2.5 H Calcium (8.4 - 10.2 mg/dL) 9.4 Iron (37 - 170 ug/dL) 51 TIBC (265 - 497 ug/dL) 351 Ferritin (11.1 - 264 ng/mL) 48.2 Total Bilirubin (0.2 - 1.3 mg/dL) 0.3 AST (14 - 36 U/L) 17 ALT (9 - 52 U/L) 20 Alkaline Phosphatase (<127 U/L) 137 H Troponin I (< 0.11 ng/ml) < 0.01 Total Protein (6.3 - 8.2 g/dL) 7.2 Albumin (3.5 - 5.0 g/dL) 3.5 Globulin (1.9 - 4.2 gm/dL) 3.7 Albumin/Globulin Ratio (1.1 - 2.2 %) 0.9 L Vitamin B12 (239 - 931 pg/mL) 291 25-OH Vitamin D Total (30 - 100 ng/ml) 8.2 L Free T4 (0.64 - 1.79 ng/dL) 1.30 Total T3 (0.97 - 1.69 ng/mL) 1.24 TSH &T3 &Free T4 Intrp (0.270 - 4.20 uIU/mL) 4.340 H Hematology CBC w Diff NO MAN DIFF REQ WBC (4.8 - 10.8 /CUMM) 10.5 RBC (4.20 - 5.40 /CUMM) 4.19 L Hgb (12.0 - 16.0 G/DL) 11.5 L Hct (37 - 47 %) 34.1 L MCV (81.0 - 99.0 FL) 81.4 MCH (27.0 - 31.0 PG) 27.4 MCHC (33.0 - 37.0 G/DL) 33.7 RDW (11.5 - 14.5 %) 14.4 Plt Count (130 - 400 /CUMM) 511 H MPV (7.4 - 10.4 FL) 7.9 Gran % (42.2 - 75.2 %) 60.2 Lymphocytes % (20.5 - 51.1 %) 30.3 Monocytes % (1.7 - 9.3 %) 5.2 Eosinophils % (0 - 5 %) 3.6 Basophils % (0.0 - 2.0 %) 0.7 Absolute Granulocytes (1.4 - 6.5 /CUMM) 6.3 Absolute Lymphocytes (1.2 - 3.4 /CUMM) 3.2 Absolute Monocytes (0.10 - 0.60 /CUMM) 0.5 Absolute Eosinophils (0.0 - 0.7 /CUMM) 0.4 Absolute Basophils (0.0 - 0.2 /CUMM) 0.1 Last 24 Hours of Allen Results: Blood cultures 2 July 31 negative OR culture August 01 labeled right third toe bone pending Diagnostic Data Recent Imaging Findings: X-ray of the right foot revealed a comminuted intra-articular displaced fracture of the right third toe involving the base and mid shaft of the phalanx, with no soft tissue air or evidence of osteomyelitis. Chest x-ray August 01 negative Assessment/Plan Assessment/Plan Impression: This is a 52-year-old woman with a history of diabetes, with a peripheral neuropathy, admitted on July 31 with swelling, erythema and purulent discharge from the right third toe, associated with chills, not responsive to 4 days of Doxycycline, found to be afebrile with a mild leukocytosis and with an x-ray revealing a comminuted intra-articular displaced fracture of the right third toe involving the base and mid shaft of the phalanx, with no soft tissue air or evidence of osteomyelitis, status post amputation of the right third toe earlier today. Her clinical picture is concerning for osteomyelitis, which appears to have involved the proximal aspect of the third toe, increasing the concern for residual osteomyelitis. Have discussed with Podiatry, who is concerned about involvement of the joint and, therefore, she will likely require a prolonged course of IV antibiotics. It is not clear how the infection relates to her fracture. She has a neuropathy which may have resulted in a pathologic fracture , perhaps secondary to repeated trauma not noted by the patient. I have discussed with Podiatry, who felt that the bone was protruding from the skin, which implies that she may have had an open fracture which would have increased her susceptibility to infection. As she is stable she can be followed off antibiotics pending the bone culture and pathology. Of note she was given a dose of Unasyn in the emergency room, which she apparently tolerated; therefore she should not be considered allergic to Penicillin. Suggestion: 1. Follow-up OR culture and pathology 2. Await return to the OR later this week per Podiatry 3. Continue to follow off antibiotics pending above Consult Acknowledgment - Thank you for your consult request.
[2017-08-01 22:40] VITALS: BP 120/70
[2017-08-02 05:42] VITALS: BP 116/70
--- NOTE | 2017-08-02 07:19 | PN- Housestaff ---
See Addendum Subjective Follow-up For: 1. Right foot 3rd toe ulcer with cellulitis 2. Rule out osteomyelitis 3. Incidentally noted comminuted intra-articular displaced fracture of 3rd proximal phalanx 4. Uncontrolled Type 2 diabetes on insulin 5. Essential hypertension 6. Peripheral neuropathy 7. Normocytic anemia Subjective: seen and examined patient at bedside. she remaines stable overnight, tapered off oxygen. Denies any significant pain, rates 5/10 on right foot. Dressing intact. Review of Systems Constitutional: Reports: see HPI. Objective Last 24 Hrs of Vital Signs/I&O Vital Signs Date Time Temp Pulse Resp B/P B/P Pulse O2 O2 Flow FiO2 Mean Ox Delivery Rate 08/02 0542 98.6 86 20 116/70 94 Nasal 2.0L Cannula 08/01 2240 98.5 87 20 120/70 96 Nasal Cannula 08/01 1457 96 Nasal 2.0L Cannula 08/01 1455 99.0 80 20 123/72 96 Nasal 2.0L Cannula / 1054 98.3 / 1049 98.3 87 18 157/81 97 Room Air 08/01 0808 98.3 /05 0757 98.3 86 20 135/73 96 Room Air Intake & Output 08/02 0800 /06 0000 06/05 1600 Intake Total 120 100 Output Total 300 Balance -180 100 Intake, Oral 120 100 Output, Urine 300 Patient 114.759 kg Weight Weight Reported by Patient Measurement Method Physical Exam General Appearance: Alert, Oriented X3, Cooperative Skin: No Rashes, Dressing present on the right foot Skin Temp/Moisture Exam: Warm/Dry HEENT: Atraumatic, PERRLA, EOMI Neck: Supple Cardiovascular: Normal S1, Normal S2 Lungs: Clear to Auscultation, Normal Air Movement Abdomen: Normal Bowel Sounds, Soft, No Tenderness Extremities: No Clubbing, No Cyanosis Current Medications: Current Medications Sig/Contreras Start time Last Medication Dose Route Stop Time Status Admin Acetaminophen 650 MG Q6P PRN 07/31 2300 AC PO Atorvastatin Calcium 20 MG 1700 08/01 1700 AC 08/01 PO 1652 Budesonide/ 2 PUF BID 08/01 09 AC 08/02 Formoterol Fumarate INH 0825 Fluticasone 2 SPRAY DAILY NEEDED PRN 07/31 2330 AC Propionate ELISEO Furosemide 20 MG DAILY 08/01 0900 AC 08/02 PO 0825 Gabapentin 300 MG QPM PRN 07/31 2345 AC PO Insulin Aspart 0 TIDAC/HS 08/01 1700 AC 08/02 SC 1209 Insulin Detemir 24 UNITS BID 08/01 2100 AC 08/02 SC 0825 Insulin Human Regular 0 Q6 07/31 2359 DC 08/01 SC 0538 Levothyroxine Sodium 0.025 MG DAILY AC 08/01 0700 AC 08/02 PO 0338 Meclizine HCl 25 MG TID PRN 07/31 2330 AC PO Morphine Sulfate 2 MG Q8P PRN 08/01 0215 AC 08/02 IV 0337 Patient Medication 1 ED ONE ONE 08/02 1100 DC 08/02 Teaching ED 08/02 1101 1213 Tramadol HCl 50 MG Q8P PRN 08/01 0215 AC 08/02 PO 0826 Last 24 Hrs of Lab/Allen Results Last 24 Hrs of Labs/Mics: Laboratory Tests 08/02/17 0829: Anion Gap 9, Estimated GFR > 60, BUN/Creatinine Ratio 20.0, CBC w Diff NO MAN DIFF REQ, RBC 4.13 L, MCV 80.4 L, MCH 27.6, MCHC 34.3, RDW 14.1, MPV 8.0, Gran % 60.8, Lymphocytes % 29.4, Monocytes % 5.0, Eosinophils % 4.2, Basophils % 0.6, Absolute Granulocytes 5.4, Absolute Lymphocytes 2.6, Absolute Monocytes 0.4, Absolute Eosinophils 0.4, Absolute Basophils 0.1 Assessment/Plan Assessment: Patient is a 52 year old woman w/ a PMHx of IDDM (18 yrs), obesity, hypertension , hyperlipidemia, diabetic neuropathy, hypothyroidsm, chronic knee pain ( on steroid injections every 4months [id number]) was sent to the ER via his primary care provider for swelling and erythema of right foot x 4 days. She is due to see [facility], Endocrinology and last HbA1c 10.0 done 07/14. At the time of admission-temperature 96.4, pulse rate 94, respiration 18, blood pressure 157/94, pulse ox 98% on room air. At presentation WBC 10.5, hemoglobin 11.5 (baseline 11), platelet count 511 (chronic thrombocytosis) Sodium 136, potassium 4.3, chloride 97, bicarbonate 26, anion gap 13 Renal function-BUN 21, creatinine 0.6. Glucose 224 Lactic acid 2.5-->1.6 Liver chemistries-AST 17, ALT 20, alkaline phosphatase 137 (likely bone) Foot x ray 07/31/17 - Comminuted intra-articular displaced fracture of the right foot 3rd proximal phalanx involving the base and mid shaft of the phalanx. Admitted to general medicine floor Problem list: 1. Open necrotic wound on right foot 2. Mild chronic thrombocytosis ( likely reactive ) 3. Anemia ( ? anemia of chronic diseases) 4. Type 2 diabetes 5. HLD Plan: Open necrotic wound on right foot Patient underwent incision and drainage deep to the deep fascia with tendon exposure. She will eventually go for closure in the next few days. Currently following off antibiotics and awaiting pathology/culture results. Patient received antibiotics recently [employer] and in the ED so the yield of the cultures are less predictably. Extremity elevation. Type 2 diabetes Holding all her oral hypoglycemics. Started on Levemir 24units BID and ISS. Monitoring sugars. on board. Chronic medical conditions HLD: Continue Atrovastatin Diabetic neuropathy: continue gabapentine Lower extremity edema: Continue lasix Seasonal allergies: continue Fluticasone spray Hypothyroidism: continue levothyroxine DVT prophylaxis SC heparin Code status Full Code Problem List: 1. Allergic rhinitis 2. Cellulitis of toe of right foot 3. Spondylosis of cervical spine 4. Fracture of distal phalanx of toe of right foot Pain Ratin Pain Location: right foot Pain Goal: Pain 4 or less Pain Plan: tylenol prn Tramdol Tomorrow's Labs & Rationales: cbc for white count
--- NOTE | 2017-08-02 08:06 | PN- Diabetes ---
Assessment/Plan Diabetes Assessment: This 52 y/o female w/ PMH of T2DM x 18 yrs with HbA1c of 10%, peripheral neuropathy, HTN, HLD, Hypothyroidism, presented to the ER for her right foot infection in her right 3rd toe. She underwent the foot procedure on 08/01/2017. At home, she was on Lantus 60 units daily, metformin 1000 mg twice a day and Novolog coverage before meals. In Hospital, she was put on Levemir 24 units twice a day, Novolog coverage before meals and Novolog coverage at bedtime. Before Each Meal: Bolus Insulin: Novolog < 80 mg/dl: no coverage 80-100 mg/dl: 6 units 101-120 mg/dl: 6 units 121-150 mg/dl: 6 units 151-200 mg/dl: 8 units 201-250 mg/dl: 10 units 251-300 mg/dl: 12 units 301-350 mg/dl: 14 units 351-400 mg/dl: 16 units > 400 mg/dl: 18 units Bedtime: Bolus Insulin: Novolog < 80 mg/dl: no coverage 80-100 mg/dl: no coverage 101-120 mg/dl: no coverage 121-150 mg/dl: no coverage 151-200 mg/dl: no coverage 201-250 mg/dl: 2 units 251-300 mg/dl: 3 units 301-350 mg/dl: 4 units 351-400 mg/dl: 5 units > 400 mg/dl: 6 units Her FSGs were 104, 121 and 109. Plan: continue the current insulin regimen for now; monitor FSGs; will follow. Subjective Subjective: She feels okay. Objective Last 24 Hrs of Vital Signs/I&O Vital Signs Date Time Temp Pulse Resp B/P B/P Pulse O2 O2 Flow FiO2 Mean Ox Delivery Rate 08/02 0542 98.6 86 20 116/70 94 Nasal 2.0L Cannula 08/01 2240 98.5 87 20 120/70 96 Nasal Cannula 08/01 1457 96 Nasal 2.0L Cannula 08/01 1455 99.0 80 20 123/72 96 Nasal 2.0L Cannula 08/01 1054 98.3 08/01 1049 98.3 87 18 157/81 97 Room Air 08/01 0808 98.3 Intake & Output 08/02 1600 08/02 0800 08/02 0000 Intake Total 120 100 Output Total 300 Balance -180 100 Intake, Oral 120 100 Output, Urine 300 Findings Pertinent Lab/Allen Results: Laboratory Tests 08/01 0947 Coagulation PT (9.4 - 12.5 SEC) 11.7 INR (0.90 - 1.19) 1.07
[2017-08-02 09:17] LABS: ABSOLUTE BASOPHIL COUNT 0.1 /CUMM (0.0-0.2); ABSOLUTE EOSINOPHIL COUNT 0.4 /CUMM (0.0-0.7); ABSOLUTE GRANULOCYTE CT 5.4 /CUMM (1.4-6.5); ABSOLUTE LYMPH COUNT 2.6 /CUMM (1.2-3.4); ABSOLUTE MONOCYTE COUNT 0.4 /CUMM (0.10-0.60); BASOPHIL % 0.6 % (0.0-2.0); EOSINOPHIL % 4.2 % (0-5); GRANULOCYTE % 60.8 % (42.2-75.2); HEMATOCRIT 33.2 % (37-47); MEAN CORPUSCULAR HGB 27.6 PG (27.0-31.0); MEAN CORPUSCULAR HGB CONC 34.3 G/DL (33.0-37.0); MEAN CORPUSCULAR VOLUME 80.4 FL (81.0-99.0); PLATELET COUNT 463 /CUMM (130-400); RBC DISTRIBUTION WIDTH 14.1 % (11.5-14.5); RED BLOOD CELL CT 4.13 /CUMM (4.20-5.40); WHITE BLOOD CELL COUNT 8.9 /CUMM (4.8-10.8)
--- NOTE | 2017-08-02 11:44 | PN- Infect Dx ---
Subjective Subjective: Afebrile. She has some discomfort in the right foot. Objective Last 24 Hrs of Vital Signs/I&O Vital Signs Date Time Temp Pulse Resp B/P B/P Pulse O2 O2 Flow FiO2 Mean Ox Delivery Rate 08/02 08 Nasal 2.0L Cannula 08/02 0542 98.6 86 20 116/70 94 Nasal 2.0L Cannula 08/01 2240 98.5 87 20 120/70 96 Nasal Cannula 08/01 1457 96 Nasal 2.0L Cannula 08/01 1455 99.0 80 20 123/72 96 Nasal 2.0L Cannula Intake & Output 08/02 1600 08/02 0800 08/02 0000 Intake Total 120 100 Output Total 300 Balance -180 100 Intake, Oral 120 100 Output, Urine 300 Physical Exam Other Physical Findings: She appears comfortable in no acute distress Extremities right foot dressing intact Results Last 24 Hours of Lab Results: Laboratory Tests 08/02 828 Chemistry Sodium (137 - 145 mmol/L) 138 Potassium (3.5 - 5.1 mmol/L) 4.5 Chloride (98 - 107 mmol/L) 101 Carbon Dioxide (22 - 30 mmol/L) 28 Anion Gap (5 - 16) 9 BUN (7 - 17 mg/dL) 12 Creatinine (0.5 - 1.0 mg/dL) 0.6 Estimated GFR (>60 ml/min) > 60 BUN/Creatinine Ratio (7 - 25 %) 20.0 Hematology CBC w Diff NO MAN DIFF REQ WBC (4.8 - 10.8 /CUMM) 8.9 RBC (4.20 - 5.40 /CUMM) 4.13 L Hgb (12.0 - 16.0 G/DL) 11.4 L Hct (37 - 47 %) 33.2 L MCV (81.0 - 99.0 FL) 80.4 L MCH (27.0 - 31.0 PG) 27.6 MCHC (33.0 - 37.0 G/DL) 34.3 RDW (11.5 - 14.5 %) 14.1 Plt Count (130 - 400 /CUMM) 463 H MPV (7.4 - 10.4 FL) 8.0 Gran % (42.2 - 75.2 %) 60.8 Lymphocytes % (20.5 - 51.1 %) 29.4 Monocytes % (1.7 - 9.3 %) 5.0 Eosinophils % (0 - 5 %) 4.2 Basophils % (0.0 - 2.0 %) 0.6 Absolute Granulocytes (1.4 - 6.5 /CUMM) 5.4 Absolute Lymphocytes (1.2 - 3.4 /CUMM) 2.6 Absolute Monocytes (0.10 - 0.60 /CUMM) 0.4 Absolute Eosinophils (0.0 - 0.7 /CUMM) 0.4 Absolute Basophils (0.0 - 0.2 /CUMM) 0.1 Last 24 Hours of Allen Results: Blood cultures 2 July 31 negative OR culture August 01 labeled right third toe bone pending Assessment/Plan ID Impression: Stable, with temperatures and white blood cell count normal, off antibiotics status post amputation of the right third toe yesterday, with the OR culture pending. She is scheduled for a return to the OR later this week and, as she is stable, she can be followed off antibiotics pending results of her cultures. Suggestion: 1. Follow-up OR culture and pathology 2. Await return to the OR later this week 3. Continue to follow off antibiotics pending above
[2017-08-02 16:20] VITALS: BP 131/77
[2017-08-02 22:14] VITALS: BP 111/55
[2017-08-03 06:20] VITALS: BP 124/82
--- NOTE | 2017-08-03 08:01 | PN- Diabetes ---
Assessment/Plan Diabetes Assessment: This 52 y/o female w/ PMH of T2DM x 18 yrs with HbA1c of 10%, peripheral neuropathy, HTN, HLD, Hypothyroidism, presented to the ER for her right foot infection in her right 3rd toe. She underwent the foot procedure on 08/01/2017. At home, she was on Lantus 60 units daily, metformin 1000 mg twice a day and Novolog coverage before meals. In Hospital, she was put on Levemir 24 units twice a day, Novolog coverage before meals and Novolog coverage at bedtime. Her FSGs were 109, 178, 145, 250 and 237. Plan: 1. increase Levemir to 27 units twice a day; 2. adjust Novolog coverage before meals; detail see the inpatient DM order; 3. continue the current Novolog coverage at bedtime; 4. monitor FSGs. will follow Inpatient Diabetes Orders Before Each Meal: Bolus Insulin: Novolog < 80 mg/dl: no coverage 80-100 mg/dl: 8 units 101-120 mg/dl: 8 units 121-150 mg/dl: 8 units 151-200 mg/dl: 10 units 201-250 mg/dl: 12 units 251-300 mg/dl: 14 units 301-350 mg/dl: 16 units 351-400 mg/dl: 18 units > 400 mg/dl: 20 units Subjective Subjective: She feels okay Objective Last 24 Hrs of Vital Signs/I&O Vital Signs Date Time Temp Pulse Resp B/P B/P Pulse O2 O2 Flow FiO2 Mean Ox Delivery Rate 08/03 0620 98.6 91 18 124/82 97 Room Air 08/02 2214 98.8 92 20 111/55 96 Room Air 08/02 1620 99.6 94 20 131/77 95 Intake & Output 08/03 1600 08/03 0800 08/03 0000 Intake Total 400 Output Total Balance 400 Intake, Oral 400 Number 0 Bowel Movements Findings Pertinent Lab/Allen Results: Laboratory Tests 08/03 08/02 0710 0829 Chemistry Sodium (137 - 145 mmol/L) 138 Potassium (3.5 - 5.1 mmol/L) 4.5 Chloride (98 - 107 mmol/L) 101 Carbon Dioxide (22 - 30 mmol/L) 28 Anion Gap (5 - 16) 9 BUN (7 - 17 mg/dL) 12 Creatinine (0.5 - 1.0 mg/dL) 0.6 Estimated GFR (>60 ml/min) > 60 BUN/Creatinine Ratio (7 - 25 %) 20.0 Hematology CBC w Diff Pending NO MAN DIFF REQ WBC (4.8 - 10.8 /CUMM) Pending 8.9 RBC (4.20 - 5.40 /CUMM) Pending 4.13 L Hgb (12.0 - 16.0 G/DL) Pending 11.4 L Hct (37 - 47 %) Pending 33.2 L MCV (81.0 - 99.0 FL) Pending 80.4 L MCH (27.0 - 31.0 PG) Pending 27.6 MCHC (33.0 - 37.0 G/DL) Pending 34.3 RDW (11.5 - 14.5 %) Pending 14.1 Plt Count (130 - 400 /CUMM) Pending 463 H MPV (7.4 - 10.4 FL) Pending 8.0 Gran % (42.2 - 75.2 %) 60.8 Lymphocytes % (20.5 - 51.1 %) 29.4 Monocytes % (1.7 - 9.3 %) 5.0 Eosinophils % (0 - 5 %) 4.2 Basophils % (0.0 - 2.0 %) 0.6 Absolute Granulocytes (1.4 - 6.5 /CUMM) 5.4 Absolute Lymphocytes (1.2 - 3.4 /CUMM) 2.6 Absolute Monocytes (0.10 - 0.60 /CUMM) 0.4 Absolute Eosinophils (0.0 - 0.7 /CUMM) 0.4 Absolute Basophils (0.0 - 0.2 /CUMM) 0.1
[2017-08-03 08:18] LABS: ABSOLUTE BASOPHIL COUNT 0.1 /CUMM (0.0-0.2); ABSOLUTE EOSINOPHIL COUNT 0.3 /CUMM (0.0-0.7); ABSOLUTE GRANULOCYTE CT 4.8 /CUMM (1.4-6.5); ABSOLUTE LYMPH COUNT 2.6 /CUMM (1.2-3.4); ABSOLUTE MONOCYTE COUNT 0.5 /CUMM (0.10-0.60); BASOPHIL % 0.8 % (0.0-2.0); EOSINOPHIL % 3.3 % (0-5); GRANULOCYTE % 58.5 % (42.2-75.2); HEMATOCRIT 34.6 % (37-47); MEAN CORPUSCULAR HGB 27.9 PG (27.0-31.0); MEAN CORPUSCULAR HGB CONC 34.4 G/DL (33.0-37.0); MEAN PLATELET VOLUME 8.2 FL (7.4-10.4); PLATELET COUNT 470 /CUMM (130-400); RBC DISTRIBUTION WIDTH 13.9 % (11.5-14.5); RED BLOOD CELL CT 4.27 /CUMM (4.20-5.40); WHITE BLOOD CELL COUNT 8.2 /CUMM (4.8-10.8)
--- NOTE | 2017-08-03 09:47 | PN- Housestaff ---
See Addendum Subjective Follow-up For: Right foot 3rd toe ulcer with cellulitis Subjective: No complaints. No fevers or chills overnight. Review of Systems Constitutional: Reports: see HPI. Objective Last 24 Hrs of Vital Signs/I&O Vital Signs Date Time Temp Pulse Resp B/P B/P Pulse O2 O2 Flow FiO2 Mean Ox Delivery Rate 08/03 0620 98.6 91 18 124/82 97 Room Air 08/02 2214 98.8 92 20 111/55 96 Room Air 08/02 1620 99.6 94 20 131/77 95 Intake & Output 08/03 1600 08/03 0800 08/03 0000 Intake Total 400 Output Total Balance 400 Intake, Oral 400 Number 0 Bowel Movements Physical Exam General Appearance: Alert, Oriented X3, Cooperative Cardiovascular: Regular Rate, Normal S1, Normal S2 Lungs: Clear to Auscultation, Normal Air Movement Abdomen: Normal Bowel Sounds, Soft, No Tenderness Extremities: No Clubbing, No Cyanosis Current Medications: Current Medications Sig/Contreras Start time Last Medication Dose Route Stop Time Status Admin Acetaminophen 650 MG Q6P PRN 07/31 2300 AC PO Atorvastatin Calcium 20 MG 1700 08/01 1700 AC 08/02 PO 1626 Budesonide/ 2 PUF BID 08/01 09 AC 08/02 Formoterol Fumarate INH 2112 Fluticasone 2 SPRAY DAILY NEEDED PRN 07/31 2330 AC Propionate ELISEO Furosemide 20 MG DAILY 08/01 0900 AC 08/02 PO 0825 Gabapentin 300 MG QPM PRN 07/31 2345 AC PO Heparin Sodium 5,000 UNIT Q8 08/02 1515 AC 08/03 (Porcine) SC 0544 Insulin Aspart 0 TIDAC/HS 08/01 1700 AC 08/02 SC 2110 Insulin Detemir 27 UNITS BID 08/03 0900 AC SC Insulin Detemir 24 UNITS BID 08/01 2100 DC 08/02 SC 2111 Levothyroxine Sodium 0.025 MG DAILY AC 08/01 0700 AC 08/03 PO 0544 Meclizine HCl 25 MG TID PRN 07/31 2330 AC PO Morphine Sulfate 2 MG Q8P PRN 08/01 0215 AC 08/03 IV 0822 Patient Medication 1 ED ONE ONE 08/02 1100 DC 08/02 Teaching ED 08/02 1101 1213 Tramadol HCl 50 MG Q8P PRN 08/01 0215 AC 08/02 PO 1626 Last 24 Hrs of Lab/Allen Results Last 24 Hrs of Labs/Mics: Laboratory Tests 08/03/17 0710: CBC w Diff NO MAN DIFF REQ, RBC 4.27, MCV 81.0, MCH 27.9, MCHC 34.4, RDW 13.9, MPV 8.2, Gran % 58.5, Lymphocytes % 31.7, Monocytes % 5.7, Eosinophils % 3.3, Basophils % 0.8, Absolute Granulocytes 4.8, Absolute Lymphocytes 2.6, Absolute Monocytes 0.5, Absolute Eosinophils 0.3, Absolute Basophils 0.1 Assessment/Plan Assessment: 52-year-old woman with uncontrolled type 2 diabetes on insulin, peripheral neuropathy presented to [facility] ED with complaints of worsening right third toe erythema, not improving with p.o. doxycycline incidentally found to have comminuted intra-articular displaced fracture of third proximal phalanx status post amputation of the right third toe on 08/01/2017. 1. Continue to follow off antibiotics. Follow off for cultures and pathology. 2. Uncontrolled type 2 diabetes. Continue Levemir and insulin sliding scale as ordered. Appreciate endo recommendations. Chronic medical conditions HLD: Continue Atrovastatin Diabetic neuropathy: continue gabapentine Lower extremity edema: Continue lasix Seasonal allergies: continue Fluticasone spray Hypothyroidism: continue levothyroxine Full code. DVT prophylaxis with Alps. Consistent carbohydrate one diet. Problem List: 1. Cellulitis of toe of right foot Pain Ratin Pain Location: Rt foot Pain Goal: Remain pain free Pain Plan: PRN Tomorrow's Labs & Rationales: Post op
[2017-08-03 13:52] VITALS: BP 110/60
--- NOTE | 2017-08-03 14:07 | PN- Infect Dx ---
Subjective Subjective: Afebrile. She notes some discomfort in the right foot. Objective Last 24 Hrs of Vital Signs/I&O Vital Signs Date Time Temp Pulse Resp B/P B/P Pulse O2 O2 Flow FiO2 Mean Ox Delivery Rate 08/04 619 98.6 91 18 124/82 97 Room Air 08/02 2214 98.8 92 20 111/55 96 Room Air 08/02 1620 99.6 94 20 131/77 95 Intake & Output 08/03 1600 08/03 0800 08/03 0000 Intake Total 400 Output Total Balance 400 Intake, Oral 400 Number 0 Bowel Movements Physical Exam Other Physical Findings: She appears comfortable in no acute distress Extremities right foot dressing intact Results Last 24 Hours of Lab Results: Laboratory Tests 08/03 709 Hematology CBC w Diff NO MAN DIFF REQ WBC (4.8 - 10.8 /CUMM) 8.2 RBC (4.20 - 5.40 /CUMM) 4.27 Hgb (12.0 - 16.0 G/DL) 11.9 L Hct (37 - 47 %) 34.6 L MCV (81.0 - 99.0 FL) 81.0 MCH (27.0 - 31.0 PG) 27.9 MCHC (33.0 - 37.0 G/DL) 34.4 RDW (11.5 - 14.5 %) 13.9 Plt Count (130 - 400 /CUMM) 470 H MPV (7.4 - 10.4 FL) 8.2 Gran % (42.2 - 75.2 %) 58.5 Lymphocytes % (20.5 - 51.1 %) 31.7 Monocytes % (1.7 - 9.3 %) 5.7 Eosinophils % (0 - 5 %) 3.3 Basophils % (0.0 - 2.0 %) 0.8 Absolute Granulocytes (1.4 - 6.5 /CUMM) 4.8 Absolute Lymphocytes (1.2 - 3.4 /CUMM) 2.6 Absolute Monocytes (0.10 - 0.60 /CUMM) 0.5 Absolute Eosinophils (0.0 - 0.7 /CUMM) 0.3 Absolute Basophils (0.0 - 0.2 /CUMM) 0.1 Last 24 Hours of Allen Results: OR culture August 01 labeled right third toe bone negative Blood cultures July 31 negative Assessment/Plan ID Impression: Stable, with temperatures and white blood cell count normal, off antibiotics status post amputation of the right third toe 2 days ago for presumed osteomyelitis, with the OR culture so far negative and the pathology of the bone pending. She is scheduled for a return to the OR in the a.m. at which point a repeat bone culture can be obtained, and the decision regarding the need for antibiotics for residual osteomyelitis can be determined based on these results. Suggestion: 1. Follow-up final OR culture and pathology 2. Await return to the OR in the a.m. for further debridement and repeat cultures 3. Continue to follow off antibiotics pending above
[2017-08-03 22:29] VITALS: BP 117/58
[2017-08-04 06:00] VITALS: BP 118/76
--- NOTE | 2017-08-04 07:46 | PN- Housestaff ---
Mine LEAL,Tracey 08/04/17 0746: Subjective Follow-up For: Right foot 3rd toe ulcer with cellulitis Subjective: seen and examined at bedside Patient remained stable overnight. NPO for the procedure, had some dry cough. Review of Systems Constitutional: Reports: see HPI. Objective Last 24 Hrs of Vital Signs/I&O Vital Signs Date Time Temp Pulse Resp B/P B/P Pulse O2 O2 Flow FiO2 Mean Ox Delivery Rate 08/04 599 98.1 93 20 118/76 94 Room Air 08/03 2229 98.3 88 20 117/58 95 Room Air 08/03 1352 98.7 93 20 110/60 96 Room Air Intake & Output 08/04 0800 08/04 0000 08/03 1600 Intake Total 240 800 Output Total Balance 240 800 Intake, Oral 240 800 Number 0 Bowel Movements Patient 114.759 kg Weight Physical Exam General Appearance: Alert, Oriented X3, Cooperative, No Acute Distress Skin: No Rashes, No Breakdown, dressing present on the right foot wound Skin Temp/Moisture Exam: Warm/Dry Sepsis Skin Exam (color): Normal for Ethnicity HEENT: Atraumatic, PERRLA, EOMI Neck: Supple Cardiovascular: Normal S1, Normal S2 Lungs: Clear to Auscultation, Normal Air Movement Abdomen: Normal Bowel Sounds, Soft, No Tenderness Neurological: Normal Gait Extremities: No Clubbing, No Cyanosis Vascular: Normal Pulses Current Medications: Current Medications Sig/Contreras Start time Last Medication Dose Route Stop Time Status Admin Acetaminophen 650 MG Q6P PRN 07/31 2300 AC PO Atorvastatin Calcium 20 MG 1700 08/01 1700 AC 08/03 PO 1757 Budesonide/ 2 PUF BID 08/01 09 AC 08/03 Formoterol Fumarate INH 2124 Dextrose/Sodium 1,000 ML Q13H 08/04 0600 AC 08/04 Chloride IV 0716 Fluticasone 2 SPRAY DAILY NEEDED PRN 07/31 2330 AC Propionate ELISEO Furosemide 20 MG DAILY 08/01 09 AC 08/03 PO 1018 Gabapentin 300 MG QPM PRN 07/31 2345 AC PO Heparin Sodium 5,000 UNIT Q8 08/02 1515 AC 08/04 (Porcine) SC 0719 Insulin Aspart 12 UNITS .STK-MED ONE 08/03 180 DC SC 08/03 180 Insulin Aspart 0 TIDAC/HS 08/01 1700 DC 08/03 LA 2126 Insulin Detemir 27 UNITS BID 08/03 0900 AC 08/04 SC 0718 Insulin Human Regular 0 Q6 08/04 06 AC 08/04 SC 0719 Levothyroxine Sodium 0.025 MG DAILY AC 08/01 07 AC 08/04 PO 0719 Meclizine HCl 25 MG TID PRN 07/31 2330 AC PO Morphine Sulfate 2 MG Q8P PRN 08/01 0215 AC 08/03 IV 0822 Patient Medication 1 ED ONE ONE 08/03 1630 SD Teaching ED 08/03 1631 Tramadol HCl 50 MG Q8P PRN 08/01 0215 08/03 PO 2359 Assessment/Plan Assessment: Patient is a 52 year old woman w/ a PMHx of IDDM (18 yrs), obesity, hypertension , hyperlipidemia, diabetic neuropathy, hypothyroidsm, chronic knee pain ( on steroid injections every 4months [id number]) was sent to the ER via his primary care provider for swelling and erythema of right foot x 4 days. She is due to see [facility], Endocrinology and last HbA1c 10.0 done 07/14. At the time of admission-temperature 96.4, pulse rate 94, respiration 18, blood pressure 157/94, pulse ox 98% on room air. At presentation WBC 10.5, hemoglobin 11.5 (baseline 11), platelet count 511 (chronic thrombocytosis) Sodium 136, potassium 4.3, chloride 97, bicarbonate 26, anion gap 13 Renal function-BUN 21, creatinine 0.6. Glucose 224 Lactic acid 2.5-->1.6 Liver chemistries-AST 17, ALT 20, alkaline phosphatase 137 (likely bone) Foot x ray 07/31/17 - Comminuted intra-articular displaced fracture of the right foot 3rd proximal phalanx involving the base and mid shaft of the phalanx. Admitted to general medicine floor Problem list: 1. Open necrotic wound on right foot 2. Mild chronic thrombocytosis ( likely reactive ) 3. Anemia ( ? anemia of chronic diseases) 4. Type 2 diabetes 5. HLD Plan: Open necrotic wound on right foot Patient underwent incision and drainage deep to the deep fascia with tendon exposure. She is going for wound closure today with . Currently following off antibiotics and awaiting pathology/culture results. Patient received antibiotics recently [employer] and in the ED so the yield of the cultures are less predictably. Extremity elevation. Weight bearing status - heel touch. Follow up with on monday. Type 2 diabetes Holding all her oral hypoglycemics. Increased to Levemir 27units BID and ISS. Novolin scale for now, will transition once closure completed. Monitoring sugars. on board. Chronic medical conditions HLD: Continue Atrovastatin Diabetic neuropathy: continue gabapentine Lower extremity edema: Continue lasix Seasonal allergies: continue Fluticasone spray Hypothyroidism: continue levothyroxine DVT prophylaxis SC heparin Code status Full Code Problem List: 1. Cellulitis of foot, right Pain Ratin Pain Location: right foot Pain Goal: Pain 4 or less Pain Plan: tyelnol and tramadol Tomorrow's Labs & Rationales: cbc, bep post procedure Ángel Wesley MD 08/04/17 1805: Attending MD Review Statement Attending Statement Attending MD Statement: examined this patient, discuss w/resident/PA/BARKER PEELER, agreed w/resident/PA/BARKER PEELER, reviewed EMR data (avail), discussed with nursing, discussed with case mgmt, amended to note Attending Assessment/Plan: The patient was seen and discussed with house staff. Having debridement and wound closure today with Podiatry. Probable discharge tomorrow. No growth from prior OR cultures and observing off of antibiotics at present.
--- NOTE | 2017-08-04 11:37 | PN- Diabetes ---
Assessment/Plan Diabetes Assessment: This 52 y/o female w/ PMH of T2DM x 18 yrs with HbA1c of 10%, peripheral neuropathy, HTN, HLD, Hypothyroidism, presented to the ER for her right foot infection in her right 3rd toe. She underwent the foot procedure on 08/01/2017. At home, she was on Lantus 60 units daily, metformin 1000 mg twice a day and Novolog coverage before meals. In Hospital, she was put on Levemir 27 units twice a day, Novolog coverage before meals and Novolog coverage at bedtime. Before Each Meal: Bolus Insulin: Novolog < 80 mg/dl: no coverage 80-100 mg/dl: 8 units 101-120 mg/dl: 8 units 121-150 mg/dl: 8 units 151-200 mg/dl: 10 units 201-250 mg/dl: 12 units 251-300 mg/dl: 14 units 301-350 mg/dl: 16 units 351-400 mg/dl: 18 units > 400 mg/dl: 20 units Her FSGs were 234 and 151. She is going to have another foot procedure done today. Currently she is NPO and is receiving D5 1/2 NS at 75 ml/hour, and she is on RISS coverage every 6 hours. Plan: ---continue Levemir 27 units twice a day; ---continue the current RISS every 6 hours for now; ---After the procedure is done and when she is ready to eat, please discontinue RISS every 6 hours and IVF, please start the previous Novolog coverage before meals and Novolog coverage at bedtime. will follow. Subjective Subjective: She feels okay. Objective Last 24 Hrs of Vital Signs/I&O Vital Signs Date Time Temp Pulse Resp B/P B/P Pulse O2 O2 Flow FiO2 Mean Ox Delivery Rate 08/04 06 98.1 93 20 118/76 94 Room Air 08/03 2229 98.3 88 20 117/58 95 Room Air 08/03 1352 98.7 93 20 110/60 96 Room Air Intake & Output 08/04 1600 08/04 0800 06/ 0000 Intake Total 240 Output Total Balance 240 Intake, Oral 240 Number 0 0 Bowel Movements
--- NOTE | 2017-08-04 13:02 | Operative Report ---
Operative/Inv Procedure Report Surgery Date: 08/04/17 Name of Procedure: 1 open incision and drainage deep to the D fashion with exposure of the extensor and flexor tendon and tendon sheath multiple sites right foot 2 delayed primary closure of open surgical wound right foot 3 revisional, partial third ray resection right foot 4 excisional debridement Pre-Operative Diagnosis: 1 open, necrotic wound right foot 2 osteomyelitis right foot 3 diabetic peripheral neuropathy Post-Operative Diagnosis: Same Estimated Blood Loss: less than 50ml Surgeon/Architecture Internship: MARYLIN ZELAYA DPM Anesthesia: moderate sedation, block Operative/Procedure Note Note: After obtaining informed consent the patient was brought to the operating room and placed on the operating table in supine position. The patient was then securely fastened to the operating table utilizing safety belt. After administration of IV sedation, 10 mL of 0.5% Marcaine plain was infiltrated about the patient's right ankle. The right foot and ankle within scrubbed, prepped and draped in usual aseptic manner. Attention directed the right foot, where a large full-thickness necrotic was identified. A 15 blade was utilized to sharply revised skin margins. Dissection was then carried down deep to the deep fascia with exposure of the extensor and flexor tendon and tendon sheath multiple sites, both proximally and distally. All necrotic, nonviable infected tissue sharply evacuated wound bed. Dissection and continued onto the periosteum overlying the distal third metatarsal. This was incised reflected. Sagittal bone saw was utilized to resect the distal 3 cm of exposed bone. Specimen was sent for microbiologic inspection. The open wound was then irrigated with 3 L of normal sterile saline infused with 50,000 units of bacitracin. And the surgeon's top gloves were exchanged for clean gloves. Any bleeding vessels identified were cauterized or ligated as encountered. Next, a dorsal lateral dorsal medial flap was developed with undermining, mobilization and advancement adjacent tissue centrally. The deep side of the flap was held with 3-0 Vicryl. The skin edges reprepped with 3-0 nylon. Incision was dressed with Xeroform, 4 x 4's, Kerlix and an Devonte wrap. The patient was noted to tolerate both procedure and anesthesia well and the patient was transported from the operating room to recovery with vital signs stable best assess intact to both the dorsal medial and dorsal lateral flaps.
[2017-08-04 14:15] VITALS: BP 128/76
--- NOTE | 2017-08-04 14:52 | PN- Infect Dx ---
Subjective Subjective: Afebrile without complaints Objective Last 24 Hrs of Vital Signs/I&O Vital Signs Date Time Temp Pulse Resp B/P B/P Pulse O2 O2 Flow FiO2 Mean Ox Delivery Rate 08/04 1415 97.9 85 20 128/76 92 Room Air 08/04 0600 98.1 93 20 118/76 94 Room Air 08/03 2229 98.3 88 20 117/58 95 Room Air Intake & Output 08/04 1600 08/04 0800 08/04 0000 Intake Total 425 240 Output Total Balance 425 240 Intake, IV 375 Intake, Oral 50 240 Number 0 0 0 Bowel Movements Physical Exam Other Physical Findings: She appears comfortable in no acute distress Extremities right foot dressing intact Results Last 24 Hours of Lab Results: Bone pathology right third toe July 31 reveals features consistent with acute osteomyelitis, present at the proximal bone margin Last 24 Hours of Allen Results: Blood cultures 2 July 31 negative OR culture August 01 labeled right third toe bone remains negative OR culture August 04 labeled right third metatarsal pending Assessment/Plan ID Impression: Stable, with temperatures and white blood cell count remaining normal, off antibiotics status post amputation of the right third toe 3 days ago for osteomyelitis, with the OR culture remaining negative but with the pathology positive for acute osteomyelitis. She is now status post revisional partial third ray resection of the right foot with delayed primary closure and, if all of the infected bone has been removed, she should not require antibiotics. A repeat culture has been sent and, as she is stable, she can be followed off antibiotics pending results of this culture. Suggestion: 1. Follow-up final OR cultures 2. Continue to follow off antibiotics pending above Dr. Pérez will be covering over the weekend
--- NOTE | 2017-08-04 19:04 | Discharge Summary ---
Visit Information Visit Dates Admission Date: 07/31/17 Discharge Date: 08/08/17 Hospital Course Course Attending Physician: Ángel Wesley MD Primary Care Physician: John LEAL,Ross Enriquez Consulting Request: Consulting Specialty: Podiatry Consulting Physician: Reason for Consult: diabetic foot Hospital Course: Patient is a 52 year old woman w/ a PMHx of IDDM (18 yrs), obesity, hypertension , hyperlipidemia, diabetic neuropathy, hypothyroidsm, chronic knee pain ( on steroid injections every 4months [id number]) was sent to the ER via his primary care provider for swelling and erythema of right foot x 4 days. She is [facility] see [facility], Endocrinology and last HbA1c 10.0 done 07/14. At the time of admission-temperature 96.4, pulse rate 94, respiration 18, blood pressure 157/94, pulse ox 98% on room air. At presentation WBC 10.5, hemoglobin 11.5 (baseline 11), platelet count 511 (chronic thrombocytosis) Sodium 136, potassium 4.3, chloride 97, bicarbonate 26, anion gap 13 Renal function-BUN 21, creatinine 0.6. Glucose 224 Lactic acid 2.5-->1.6 Liver chemistries-AST 17, ALT 20, alkaline phosphatase 137 (likely bone) Foot x ray 07/31/17 - Comminuted intra-articular displaced fracture of the right foot 3rd proximal phalanx involving the base and mid shaft of the phalanx. Admitted to general medicine floor Problem list: 1. Open necrotic wound on right foot 2. Mild chronic thrombocytosis ( likely reactive ) 3. Anemia ( ?anemia of chronic diseases) 4. Type 2 diabetes 5. HLD Plan: RIGHT FOOT OSTEOMYELITIS Patient underwent incision and drainage deep to the deep fascia with tendon exposure on the day of admission (07/31/17) followed by closure on 08/04/17. she was followed off antibiotics while awaiting pathology/culture results. Patient received antibiotics recently [employer] M[employer]. Rigth metatarsal foot Cultures from 08/04/17 grew gram negative rods and beta strep B. Given pathology from initial surgery showing actue osteo with positive margins, cultures growing pseudomonas and alfha strep, she benefits 4 week course of abx. A PICC line was placed on 08/07/17, started on meropenem for 1 day prior to final cultures. Once final cultures were back, started on Zosyn 4.5gm Q6 for a total of 4 week duration. Baseline ESR was 69 Prior to starting abx. Doppler ultrasound of arteries ruled out PAD. Weight bearing status - heel touch. Follow up with . Type 2 diabetes Holded all her oral hypoglycemics. On Levemir 30units BID and ISS. Novolin scale for now, will transition once closure completed. At discharge placed on lantus 30units BID along with new sliding scale. Continued metformin 1000mg BID. follow up requested with . Chronic medical conditions HLD: Continued Atrovastatin (rosuvastatin) Diabetic neuropathy: continued gabapentine Lower extremity edema: Continued lasix Seasonal allergies: continued Fluticasone spray Hypothyroidism: continued levothyroxine HTN: Diovan Discharge disposition Patient will be sent home with new wheel chair, due to need for foot elevation s /p surgery. Patient is still experiencing pain and limitation of her ambulation. DVT prophylaxis SC heparin Code status Full Code Complications: none Allergies: Coded Allergies: clindamycin (Mild, ITCHY 04/06/17) Penicillins (UNKNOWN 04/06/17) Significant Procedures: Foot Xray IMPRESSION: Comminuted intra-articular displaced fracture of the right foot 3rd proximal phalanx involving the base and mid shaft of the phalanx. Pathologic fracture would be difficult to exclude as there could be lucent lesion involving mid shaft and base of the phalanx here. Correlate with history of trauma in this region. No plain radiographic evidence of osteomyelitis. No soft tissue air is noted. Degenerative changes in the mid foot. Soft tissue swelling over the dorsum of the foot. CXR IMPRESSION: No active cardiopulmonary disease. There is no significant interim change. Pertinent Lab Results: as above Disposition Summary Disposition Principal Diagnosis: 1. Open necrotic wound on right foot Additional Diagnosis: Mild chronic thrombocytosis ( likely reactive ) Anemia ( ?anemia of chronic diseases) Type 2 diabetes HLD Discharge Disposition: home or self care Discharge Instructions General Discharge Information Code Status: Full Code Patient's Diet: diabetic diet Patient's Activity: heel touch weight bearing Follow-Up Instructions/Appts: Please follow up with your PCP in a week Please follow up with your mine technician in a week please follow up with your food order delivery runner in a week Please monitor weekly ESR while on IV antibiotics (Zosyn) Medications at Discharge Discharge Medications: Stop taking the following medications: Naproxen (Naproxen) 500 MG TABLET ORAL TWICE DAILY Qty = 30 Insulin Glargine,Hum.rec.anlog (Lantus Solostar) 100 UNIT/ML (3 ML) INSULN.PEN Inject into fatty tissue Every night Insulin Aspart (Novolog) (Unknown Strength) VIAL Continue taking these medications: Gabapentin (Gabapentin) 300 MG CAPSULE 1 Capsule ORAL Every night Qty = 30 Comments: NOT GIVEN IN HOSPITAL Metformin HCl (Metformin HCl) 1,000 MG TABLET 1 Tablet ORAL TWICE DAILY Qty = 60 Comments: Last Taken: 08/08/17 Time: 9:30 AM Fluticasone Propionate (Fluticasone Propionate) 50 MCG/ACTUATION SPRAY.SUSP 2 [place] Both sides of nose DAILY NEEDED Qty = 16 Comments: NOT GIVEN IN HOSPITAL Valsartan (Diovan) 40 MG TABLET 1 Tablet ORAL DAILY Qty = 90 Comments: NOT GIVEN IN HOSPITAL Atorvastatin Calcium (Atorvastatin Calcium) 20 MG TABLET 1 Tablet ORAL DAILY Qty = 90 Comments: Last Taken: 08/07/17 Time: 4:30 PM [place]-3 Fatty Acids/Fish Oil (Fish Oil 1,000 MG Capsule) 340 MG-1,000 MG CAPSULE 1 Capsule ORAL DAILY Comments: NOT GIVEN IN HOSPITAL Meclizine HCl (Meclizine HCl) 25 MG TABLET 1 Tablet ORAL THREE TIMES A DAY NEEDED Qty = 30 Comments: NOT GIVEN IN HOSPITAL Furosemide (Lasix) 20 MG TABLET 1 Tablet ORAL DAILY Qty = 7 Comments: Last Taken: 08/08/17 Time: 9:00 AM Budesonide/Formoterol Fumarate (Symbicort 80-4.5 Mcg Inhaler) 80 MCG-4.5 MCG/ ACTUATION HFA.AER.AD 2 Puff Inhale through mouth TWICE DAILY Qty = 10 Comments: Last Taken: 08/08/17 Time: 9:00 AM Aspirin (Ecotrin*) 81 MG TABLET.DR 1 Tablet ORAL DAILY Levothyroxine Sodium (Levothyroxine Sodium) 25 MCG TABLET 1 Tablet ORAL DAILY Comments: Last Taken: 08/08/17 Time: 5:30 AM Rosuvastatin Calcium (Crestor) 10 MG TABLET 1 Tablet ORAL DAILY Qty = 30 This prescription has been renewed Start taking the following new medications: Insulin Glargine,Hum.rec.anlog (Lantus Solostar) 100 UNIT/ML (3 ML) INSULN.PEN 30 Unit Inject into fatty tissue TWICE DAILY Qty = 15 No Refills Instructions: . Insulin Aspart, Recombinant (Novolog Flexpen) 100 UNIT/ML INSULN.PEN 1 Unit Inject into fatty tissue SEE INSTRUCTIONS Qty = 30 No Refills Instructions: BEFORE MEALS Blood Insulin Sugar Units. 81-150 8 151-200 10 201-250 12 251-300 14 301-350 16 351-400 18 >400 Call Doctor AT BEDTIME Blood Insulin Sugar Units 81-100 0 101-200 0 201-250 2 251-300 3 301-350 4 351-400 5 >400 Call Doctor Piperacillin Sodium/Tazobactam (Zosyn 4.5 Gram Vial) 4.5 GRAM VIAL 4.5 Gram INTRAVEN EVERY SIX HOURS Qty = 108 No Refills Instructions: . Tramadol HCl (Tramadol HCl) 50 MG TABLET 1 Tablet ORAL Every 12 hours as needed as needed for moderate to severe pain Qty = 30 No Refills Copies To: Arnaldo Wiggins DPM; John LEAL,Ross Enriquez Attending MD Review Statement Documenting Attending: Ángel Wesley MD Other Findings: The patient was seen and discussed with house staff. Discharged on IV Zosyn as per ID. The patient was initially given Tramadol upon discharge, however after discharge requested a slightly stronger medication for use at night for pain. 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 Resident notifying patient.
[2017-08-04 22:22] VITALS: BP 128/76
[2017-08-05 05:56] VITALS: BP 115/50
--- NOTE | 2017-08-05 07:44 | PN- Housestaff ---
Subjective Follow-up For: Right foot 3rd toe ulcer with cellulitis Subjective: Seen and examined Tolerated procedure well yesterday. Started experiencing rash on her chest - itchy. Otherwise no overnight events. Review of Systems Constitutional: Reports: see HPI. Objective Last 24 Hrs of Vital Signs/I&O Vital Signs Date Time Temp Pulse Resp B/P B/P Pulse O2 O2 Flow FiO2 Mean Ox Delivery Rate 08/05 0556 96.7 69 20 115/50 93 Room Air 08/04 2222 96.4 85 20 128/76 95 08/04 1415 97.9 85 20 128/76 92 Room Air Intake & Output 08/05 0800 08/05 0000 08/04 1600 Intake Total 120 200 425 Output Total Balance 120 200 425 Intake, IV 375 Intake, Oral 120 200 50 Number 0 Bowel Movements Physical Exam General Appearance: Alert, Oriented X3, Cooperative Skin: rash on her upper chest, dressing intact on right foot HEENT: Atraumatic, PERRLA, EOMI Neck: Supple Cardiovascular: Normal S1, Normal S2, No Murmurs Lungs: Clear to Auscultation, Normal Air Movement Abdomen: Normal Bowel Sounds, Soft, No Tenderness Neurological: Normal Speech Extremities: No Clubbing, No Cyanosis Current Medications: Current Medications Sig/Contreras Start time Last Medication Dose Route Stop Time Status Admin Acetaminophen 650 MG Q6P PRN 07/31 2300 AC PO Atorvastatin Calcium 20 MG 1700 08/01 1700 AC 08/04 PO 1731 Budesonide/ 2 PUF BID 08/01 09 08/05 Formoterol Fumarate INH 0832 Dexamethasone 4 MG .STK-MED ONE 08/04 1152 DC IM 08/04 1153 Dextrose/Sodium 1,000 ML Q13H 08/04 06 [place] 08/04 Chloride IV 0716 Diphenhydramine HCl 50 MG Q6 PRN 08/05 0130 AC 08/05 PO 0121 Diphenhydramine HCl 50 MG Q6 PRN 08/05 0115 DC PO Fentanyl Citrate 100 MCG .STK-MED ONE 08/04 1152 DC IM 08/04 1153 Fluticasone 2 SPRAY DAILY NEEDED PRN 07/31 2330 AC Propionate ELISEO Furosemide 20 MG DAILY 08/01 0900 AC 08/05 PO 0832 Gabapentin 300 MG QPM PRN 07/31 2345 AC PO Heparin Sodium 5,000 UNIT Q8 08/02 1515 AC 08/05 (Porcine) SC 0550 Insulin Aspart 0 TIDAC/HS 08/04 1700 AC 08/05 SC 0836 Insulin Detemir 27 UNITS BID 08/03 0900 AC 08/05 SC 0836 Insulin Human Regular 0 Q6 08/04 0600 DC 08/04 SC 1120 Levothyroxine Sodium 0.025 MG DAILY AC 08/01 0700 AC 08/05 PO 0550 Meclizine HCl 25 MG TID PRN 07/31 2330 AC PO Midazolam HCl 2 MG .STK-MED ONE 08/04 1152 DC IM 08/04 1153 Morphine Sulfate 2 MG Q8P PRN 08/01 0215 AC 08/04 IV 2321 Ondansetron HCl 4 MG .STK-MED ONE 08/04 1152 DC IM 08/04 1153 Tramadol HCl 50 MG Q8P PRN 08/01 0215 AC 08/04 PO 2055 Last 24 Hrs of Lab/Allen Results Last 24 Hrs of Labs/Mics: Laboratory Tests 08/05/17 0630: Anion Gap 10, Estimated GFR > 60, BUN/Creatinine Ratio 24.3, CBC w Diff Pending, WBC Pending, RBC Pending, Hgb Pending, Hct Pending, MCV Pending, MCH Pending, MCHC Pending, RDW Pending, Plt Count Pending, MPV Pending Microbiology 08/04 1245 EXTREMITIE: Gross Specimen Examination - RECD 08/04 1245 EXTREMITIE: Gram Stain - RECD Assessment/Plan Assessment: Patient is a 52 year old woman w/ a PMHx of IDDM (18 yrs), obesity, hypertension , hyperlipidemia, diabetic neuropathy, hypothyroidsm, chronic knee pain ( on steroid injections every 4months [id number]) was sent to the ER via his primary care provider for swelling and erythema of right foot x 4 days. She is due to see [facility], Endocrinology and last HbA1c 10.0 done 07/14. At the time of admission-temperature 96.4, pulse rate 94, respiration 18, blood pressure 157/94, pulse ox 98% on room air. At presentation WBC 10.5, hemoglobin 11.5 (baseline 11), platelet count 511 (chronic thrombocytosis) Sodium 136, potassium 4.3, chloride 97, bicarbonate 26, anion gap 13 Renal function-BUN 21, creatinine 0.6. Glucose 224 Lactic acid 2.5-->1.6 Liver chemistries-AST 17, ALT 20, alkaline phosphatase 137 (likely bone) Foot x ray 07/31/17 - Comminuted intra-articular displaced fracture of the right foot 3rd proximal phalanx involving the base and mid shaft of the phalanx. Admitted to general medicine floor Problem list: 1. Open necrotic wound on right foot 2. Mild chronic thrombocytosis ( likely reactive ) 3. Anemia ( ?anemia of chronic diseases) 4. Type 2 diabetes 5. HLD Plan: Open necrotic wound on right foot Patient underwent incision and drainage deep to the deep fascia with tendon exposure on the day of admission (07/31/17) followed by closure on 08/04/17. she was followed off antibiotics while awaiting pathology/culture results. Patient received antibiotics recently [employer]EMENT [employer]KER and in the ED so the yield of the cultures are less predictably. Extremity elevation. Rigth metatarsal foot Cultures from 08/04/17 grew gram negative rods and beta strep B. 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 Weight bearing status - heel touch. Follow up with on monday. Rash on the upper chest Itchy - probably allergy. Given recent use of antibiotics, need to rule out other etiologies including drug rash. Type 2 diabetes Holding all her oral hypoglycemics. Increased to Levemir 27units BID and ISS per Endo. Need to obtain discharge recommendations. Chronic medical conditions HLD: Continued Atrovastatin Diabetic neuropathy: continued gabapentine Lower extremity edema: Continued lasix Seasonal allergies: continued Fluticasone spray Hypothyroidism: continued levothyroxine DVT prophylaxis SC heparin Code status Full Code Problem List: 1. Cellulitis of toe of right foot 2. Toe fracture, right Pain Ratin Pain Location: right foot Pain Goal: Pain 4 or less Pain Plan: tylenol, tramadol Tomorrow's Labs & Rationales: none Consulting Request: Consulting Specialty: Podiatry Consulting Physician: Reason for Consult: diabetic foot
[2017-08-05 08:26] LABS: ABSOLUTE BASOPHIL COUNT 0.1 /CUMM (0.0-0.2); ABSOLUTE EOSINOPHIL COUNT 0 /CUMM (0.0-0.7); ABSOLUTE GRANULOCYTE CT 9.3 /CUMM (1.4-6.5); ABSOLUTE LYMPH COUNT 2.4 /CUMM (1.2-3.4); ABSOLUTE MONOCYTE COUNT 0.6 /CUMM (0.10-0.60); BASOPHIL % 0.4 % (0.0-2.0); EOSINOPHIL % 0.2 % (0-5); GRANULOCYTE % 75.3 % (42.2-75.2); HEMATOCRIT 34.6 % (37-47); MEAN CORPUSCULAR HGB 27.5 PG (27.0-31.0); MEAN CORPUSCULAR HGB CONC 33.7 G/DL (33.0-37.0); MEAN CORPUSCULAR VOLUME 81.8 FL (81.0-99.0); MEAN PLATELET VOLUME 8.4 FL (7.4-10.4); PLATELET COUNT 510 /CUMM (130-400); RBC DISTRIBUTION WIDTH 13.8 % (11.5-14.5); RED BLOOD CELL CT 4.23 /CUMM (4.20-5.40); WHITE BLOOD CELL COUNT 12.3 /CUMM (4.8-10.8)
--- NOTE | 2017-08-05 08:31 | PN- Att Addend ---
Attending Addendum Attending Brief Note Patient seen and examined. Plan of care discussed with the medical team and the patient. Available lab work and radiology test reports were reviewed. Patient to develop some itching overnight. She has been scratching her skin and has developed a new rash upper chest area. Was not able to sleep well last night. Otherwise feels well and denies any recent fever chills nausea vomiting difficulty breathing, swelling or lip swelling. Assessment * Foot wound status post debridement and then wound closure on August 04 * History of right third toe amputation * History of MRSA myelitis of toe * History diabetes * Itching and new rash- mild in nature and only limited upper chest- her medication list was reviewed and I do not see any new medication which could be implicated in her itching and rash * Increased wbc count- without any fever; she only has slightly elevated left shift Plan * continue Benadryl for symptomatically relief for itching * Can use Benadryl cream topical; also, prescribed 1% hydrocortisone cream to apply to upper chest area * Please have case management arrange a rolling walker for her * Repeat CBC tomorrow * A rolling walker can be arranged patient can be discharged home tomorrow if CBC is stable * Repeat urinalysis and chest x-ray Exam: General: Patient awake alert oriented without any distress CVS: S1 plus S2 without any murmur or gallops Chest: Few scattered crepitation without any wheeze. There is no respiratory distress. 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: Awake alert oriented without any focal neuro deficit and follows commands appropriately Extremities: No edema; no clubbing or cyanosis noted Skin exam shows a mild rash and upper chest area which appears to be macular in nature Current Medications Sig/Contreras Start time Last Medication Dose Route Stop Time Status Admin Acetaminophen 650 MG Q6P PRN 07/31 2300 AC PO Atorvastatin Calcium 20 MG 1700 08/01 1700 AC 08/04 PO 1731 Budesonide/ 2 PUF BID 08/01 0900 AC 08/04 Formoterol Fumarate INH 2051 Dexamethasone 4 MG .STK-MED ONE 08/04 1152 DC IM 08/04 1153 Dextrose/Sodium 1,000 ML Q13H 08/04 0600 DC 08/04 Chloride IV 0716 Diphenhydramine HCl 50 MG Q6 PRN 08/05 0130 AC 08/05 PO 0121 Diphenhydramine HCl 50 MG Q6 PRN 08/05 0115 DC PO Fentanyl Citrate 100 MCG .STK-MED ONE 08/04 1152 DC IM 08/04 1153 Fluticasone 2 SPRAY DAILY NEEDED PRN 07/31 2330 AC Propionate ELISEO Furosemide 20 MG DAILY 08/01 0900 AC 08/03 PO 1018 Gabapentin 300 MG QPM PRN 07/31 2345 AC PO Heparin Sodium 5,000 UNIT Q8 08/02 1515 AC 08/05 (Porcine) SC 0550 Insulin Aspart 0 TIDAC/HS 08/04 1700 AC 08/04 SC 2050 Insulin Detemir 27 UNITS BID 08/03 09 AC 08/04 SC 205 Insulin Human Regular 0 Q6 08/04 0600 DC 08/04 SC 1120 Levothyroxine Sodium 0.025 MG DAILY AC 08/01 0700 AC 08/05 PO 0550 Meclizine HCl 25 MG TID PRN 07/31 2330 AC PO Midazolam HCl 2 MG .STK-MED ONE 08/04 1152 DC IM 08/04 1153 Morphine Sulfate 2 MG Q8P PRN 08/01 0215 AC 08/04 IV 2321 Ondansetron HCl 4 MG .STK-MED ONE 08/04 1152 DC IM 08/04 1153 Tramadol HCl 50 MG Q8P PRN 08/01 0215 AC 08/04 PO 2055 Laboratory Tests 08/05/17 0630: Sodium Pending, Potassium Pending, Chloride Pending, Carbon Dioxide Pending, Anion Gap Pending, BUN Pending, Creatinine Pending, BUN/Creatinine Ratio Pending , CBC w Diff Pending, WBC Pending, RBC Pending, Hgb Pending, Hct Pending, MCV Pending, MCH Pending, MCHC Pending, RDW Pending, Plt Count Pending, MPV Pending 08/03/17 0710: CBC w Diff NO MAN DIFF REQ, RBC 4.27, MCV 81.0, MCH 27.9, MCHC 34.4, RDW 13.9, MPV 8.2, Gran % 58.5, Lymphocytes % 31.7, Monocytes % 5.7, Eosinophils % 3.3, Basophils % 0.8, Absolute Granulocytes 4.8, Absolute Lymphocytes 2.6, Absolute Monocytes 0.5, Absolute Eosinophils 0.3, Absolute Basophils 0.1 08/02/17 0829: Anion Gap 9, Estimated GFR > 60, BUN/Creatinine Ratio 20.0, CBC w Diff NO MAN DIFF REQ, RBC 4.13 L, MCV 80.4 L, MCH 27.6, MCHC 34.3, RDW 14.1, MPV 8.0, Gran % 60.8, Lymphocytes % 29.4, Monocytes % 5.0, Eosinophils % 4.2, Basophils % 0.6, Absolute Granulocytes 5.4, Absolute Lymphocytes 2.6, Absolute Monocytes 0.4, Absolute Eosinophils 0.4, Absolute Basophils 0.1 Microbiology 08/04 1245 EXTREMITIE: Gross Specimen Examination - RECD 08/04 1244 EXTREMITIE: Gram Stain - RECD Vital Signs Date Time Temp Pulse Resp B/P B/P Pulse O2 O2 Flow FiO2 Mean Ox Delivery Rate 08/05 0556 96.7 69 20 115/50 93 Room Air 08/04 2222 96.4 85 20 128/76 95 08/04 1415 97.9 85 20 128/76 92 Room Air Intake & Output 08/05 1600 08/05 0800 08/05 0000 Intake Total 120 200 Output Total Balance 120 200 Intake, Oral 120 200 Laboratory Tests 08/05 0630 Chemistry Sodium (137 - 145 mmol/L) 134 L Potassium (3.5 - 5.1 mmol/L) 5.0 Chloride (98 - 107 mmol/L) 96 L Carbon Dioxide (22 - 30 mmol/L) 29 Anion Gap (5 - 16) 10 BUN (7 - 17 mg/dL) 17 Creatinine (0.5 - 1.0 mg/dL) 0.7 Estimated GFR (>60 ml/min) > 60 BUN/Creatinine Ratio (7 - 25 %) 24.3 Hematology CBC w Diff NO MAN DIFF REQ WBC (4.8 - 10.8 /CUMM) 12.3 H RBC (4.20 - 5.40 /CUMM) 4.23 Hgb (12.0 - 16.0 G/DL) 11.6 L Hct (37 - 47 %) 34.6 L MCV (81.0 - 99.0 FL) 81.8 MCH (27.0 - 31.0 PG) 27.5 MCHC (33.0 - 37.0 G/DL) 33.7 RDW (11.5 - 14.5 %) 13.8 Plt Count (130 - 400 /CUMM) 510 H MPV (7.4 - 10.4 FL) 8.4 Gran % (42.2 - 75.2 %) 75.3 H Lymphocytes % (20.5 - 51.1 %) 19.3 L Monocytes % (1.7 - 9.3 %) 4.8 Eosinophils % (0 - 5 %) 0.2 Basophils % (0.0 - 2.0 %) 0.4 Absolute Granulocytes (1.4 - 6.5 /CUMM) 9.3 H Absolute Lymphocytes (1.2 - 3.4 /CUMM) 2.4 Absolute Monocytes (0.10 - 0.60 /CUMM) 0.6 Absolute Eosinophils (0.0 - 0.7 /CUMM) 0 Absolute Basophils (0.0 - 0.2 /CUMM) 0.1
--- NOTE | 2017-08-05 08:47 | Patient Discharge Instructions ---
Discharge Instructions General Discharge Information You were seen/treated for: right foot osteomyelitis blood sugars You had these procedures: drainage and closure of right foot wound Special Instructions: Please follow up with your PCP in a week Please follow up with in a week Please follow up with in a week for blood sugars management Diet Recommended Diet: Diabetic Activity Activity Self Limited: Yes Other activity limits: heel touch weight bearing Acute Coronary Syndrome Inclusion Criteria At DC or during hospital stay patient has or had the following: ACS DIAGNOSIS No Discharge Core Measures Meds if any: Prescribed or Continued at Discharge Meds if any: NOT Prescribed or Continued at Discharge Congestive Heart Failure Inclusion Criteria At DC or during hospital stay patient has or had the following: CHF DIAGNOSIS No Discharge Core Measures Meds if any: Prescribed or Continued at Discharge Meds if any: NOT Prescribed or Continued at Discharge Cerebrovascular accident Inclusion Criteria At DC or during hospital stay patient has or had the following: CVA/TIA Diagnosis No Discharge Core Measures Meds if any: Prescribed or Continued at Discharge Meds if any: NOT Prescribed or Continued at Discharge Venous thromboembolism Inclusion Criteria VTE Diagnosis No VTE Type NONE VTE Confirmed by (Test) NONE Discharge Core Measures - Per Current guidelines, there needs to be overlap - treatment for the first 5 days of Warfarin therapy. - If discharged on Warfarin prior to 5 days of - overlap therapy, the patient will need to be - assessed for post discharge needs including - *Post discharge parental anticoagulation - *Warfarin and/or parental anticoagulation education - *Follow up date to check INR post discharge At least 5 days overlap therapy as Inpatient No Meds if any: Prescribed or Continued at Discharge Note: Overlap Therapy is Warfarin and Anticoagulant Meds if any: NOT Prescribed or Continued at Discharge
--- NOTE | 2017-08-05 09:12 | PN- Diabetes ---
Assessment/Plan Diabetes Assessment: The patient had surgery yesterday. Her blood sugars became high late in the day. This morning her sugar was also high at 281. She states she had a bad night last night and was itchy and could not sleep. She feels better this morning. The patient is back on her usual insulin which is Levemir 27 units twice a day. She is also on sliding scale NovoLog beginning with 8 units for sugar of 80-150. There is a separate sliding scale at bedtime. Plan: Suggest continue the present insulin regimen today. We will see if the sugars begin to come down on this first postop day. Subjective Subjective: Feels okay Review of Systems Constitutional: Denies: chills, fever. Cardiovascular: Denies: chest pain. Gastrointestinal: Denies: nausea, vomiting. Skin: Reports: no symptoms. Objective Last 24 Hrs of Vital Signs/I&O Vital Signs Date Time Temp Pulse Resp B/P B/P Pulse O2 O2 Flow FiO2 Mean Ox Delivery Rate 08/05 0456 96.7 69 20 115/50 93 Room Air 08/04 2222 96.4 85 20 128/76 95 /08 1415 97.9 85 20 128/76 92 Room Air Intake & Output 08/05 1600 08/05 0800 06 0000 Intake Total 120 200 Output Total Balance 120 200 Intake, Oral 120 200 Vital Signs Date Time Temp Pulse Resp B/P B/P Pulse O2 O2 Flow FiO2 Mean Ox Delivery Rate 08/05 0456 96.7 69 20 115/50 93 Room Air 08/04 2222 96.4 85 20 128/76 95 /08 1415 97.9 85 20 128/76 92 Room Air Intake & Output 08/05 1600 08/05 0800 06 0000 Intake Total 120 200 Output Total Balance 120 200 Intake, Oral 120 200 Physical Exam General Appearance: alert, awake, comfortable Head: normal appearance Respiratory: normal breath sounds Cardiovascular: regular rate/rhythm Abdomen: normal bowel sounds Current Medications: Current Medications Sig/Contreras Start time Last Medication Dose Route Stop Time Status Admin Acetaminophen 650 MG Q6P PRN 07/31 2300 AC PO Atorvastatin Calcium 20 MG 1700 08/01 1700 AC 08/04 PO 1731 Budesonide/ 2 PUF BID 08/01 0900 AC 08/05 Formoterol Fumarate INH 0832 Dexamethasone 4 MG .STK-MED ONE 08/04 1152 DC IM 08/04 1153 Dextrose/Sodium 1,000 ML Q13H 08/04 06 DC 08/04 Chloride IV 0716 Diphenhydramine HCl 50 MG Q6 PRN 08/05 0130 AC 08/05 PO 0121 Diphenhydramine HCl 50 MG Q6 PRN 08/05 0115 DC PO Fentanyl Citrate 100 MCG .STK-MED ONE 08/04 1152 DC IM 08/04 1153 Fluticasone 2 SPRAY DAILY NEEDED PRN 07/31 2330 AC Propionate ELISEO Furosemide 20 MG DAILY 08/01 09 AC 08/05 PO 0832 Gabapentin 300 MG QPM PRN 07/31 2345 AC PO Heparin Sodium 5,000 UNIT Q8 08/02 1515 AC 08/05 (Porcine) SC 0550 Insulin Aspart 0 TIDAC/HS 08/04 1700 AC 08/05 SC 0836 Insulin Detemir 27 UNITS BID 08/03 09 AC 08/05 SC 0836 Insulin Human Regular 0 Q6 08/04 0600 DC 08/04 SC 1120 Levothyroxine Sodium 0.025 MG DAILY AC 08/01 07 AC 08/05 PO 0550 Meclizine HCl 25 MG TID PRN 07/31 2330 AC PO Midazolam HCl 2 MG .STK-MED ONE 08/04 1152 DC IM 08/04 1153 Morphine Sulfate 2 MG Q8P PRN 08/01 0215 AC 08/04 IV 2321 Ondansetron HCl 4 MG .STK-MED ONE 08/04 1152 DC IM 08/04 1153 Tramadol HCl 50 MG Q8P PRN 08/01 0215 AC 08/04 PO 2055 Findings Pertinent Lab/Allen Results: Laboratory Tests 08/05 629 Chemistry Sodium (137 - 145 mmol/L) 134 L Potassium (3.5 - 5.1 mmol/L) 5.0 Chloride (98 - 107 mmol/L) 96 L Carbon Dioxide (22 - 30 mmol/L) 29 Anion Gap (5 - 16) 10 BUN (7 - 17 mg/dL) 17 Creatinine (0.5 - 1.0 mg/dL) 0.7 Estimated GFR (>60 ml/min) > 60 BUN/Creatinine Ratio (7 - 25 %) 24.3 Hematology CBC w Diff Pending WBC Pending RBC Pending Hgb Pending Hct Pending MCV Pending MCH Pending MCHC Pending RDW Pending Plt Count Pending MPV Pending
--- NOTE | 2017-08-05 13:15 | PN- Infect Dx ---
Subjective Subjective: This patient is a 52-year-old white female right foot osteomyelitis. She is afebrile however her white blood cell count is elevated and not consistent with previous labs. Besides pain in her lower extremity she complains of an episode of itching overnight which is been treated with Benadryl. Denies any systemic features of infection. Review of Systems Comments: 12 point review of systems completely only findings documented in HPI Objective Last 24 Hrs of Vital Signs/I&O Vital Signs Date Time Temp Pulse Resp B/P B/P Pulse O2 O2 Flow FiO2 Mean Ox Delivery Rate 08/05 0556 96.7 69 20 115/50 93 Room Air 08/04 2222 96.4 85 20 128/76 95 08 1415 97.9 85 20 128/76 92 Room Air Intake & Output 08/05 1600 08/05 0800 08/05 0000 Intake Total 120 200 Output Total Balance 120 200 Intake, Oral 120 200 Physical Exam Other Physical Findings: Awake alert oriented 3 Pupils equal and reactive to light and accommodation equal ocular motion Neck supple no JVD no lymphadenopathy Heart regular rate and rhythm Lungs clear to auscultation bilaterally Abdomen is soft nontender nondistended Lower extremity clean and dressed. Results Last 24 Hours of Lab Results: Laboratory Tests 08/05 0630 Chemistry Sodium (137 - 145 mmol/L) 134 L Potassium (3.5 - 5.1 mmol/L) 5.0 Chloride (98 - 107 mmol/L) 96 L Carbon Dioxide (22 - 30 mmol/L) 29 Anion Gap (5 - 16) 10 BUN (7 - 17 mg/dL) 17 Creatinine (0.5 - 1.0 mg/dL) 0.7 Estimated GFR (>60 ml/min) > 60 BUN/Creatinine Ratio (7 - 25 %) 24.3 Hematology CBC w Diff NO MAN DIFF REQ WBC (4.8 - 10.8 /CUMM) 12.3 H RBC (4.20 - 5.40 /CUMM) 4.23 Hgb (12.0 - 16.0 G/DL) 11.6 L Hct (37 - 47 %) 34.6 L MCV (81.0 - 99.0 FL) 81.8 MCH (27.0 - 31.0 PG) 27.5 MCHC (33.0 - 37.0 G/DL) 33.7 RDW (11.5 - 14.5 %) 13.8 Plt Count (130 - 400 /CUMM) 510 H MPV (7.4 - 10.4 FL) 8.4 Gran % (42.2 - 75.2 %) 75.3 H Lymphocytes % (20.5 - 51.1 %) 19.3 L Monocytes % (1.7 - 9.3 %) 4.8 Eosinophils % (0 - 5 %) 0.2 Basophils % (0.0 - 2.0 %) 0.4 Absolute Granulocytes (1.4 - 6.5 /CUMM) 9.3 H Absolute Lymphocytes (1.2 - 3.4 /CUMM) 2.4 Absolute Monocytes (0.10 - 0.60 /CUMM) 0.6 Absolute Eosinophils (0.0 - 0.7 /CUMM) 0 Absolute Basophils (0.0 - 0.2 /CUMM) 0.1 Last 24 Hours of Allen Results: Microbiology Date/Time Procedure - Status Source Growth 08/04 1244 Gross Specimen Examination - RES EXTREMITIE GRAM NEGATIVE RODS BETA STREP GROUP B 08/04 1244 Gram Stain - RES EXTREMITIE Recent Imaging Studies: No recent studies prior reviewed Assessment/Plan ID Impression: This patient is 52-year-old white female status post amputation. The patient has a increase in her white blood cell count off of antibiotics. The surgery has removed the osteomyelitis and there is no indication to start antibiotics. Will watch her white blood cell count overnight if it returns to normal then can discharge off of antibiotics. Suggestion: 1. Follow white blood cell count 2. Monitor temps closely 3. Will consider antibiotic therapy if fevers develop.
[2017-08-05 14:14] VITALS: BP 122/60
--- NOTE | 2017-08-05 17:15 | RADIOLOGY REPORT ---
EXAMINATION: XR CHEST CLINICAL INFORMATION: Increasing white blood cell count. COMPARISON: Chest x-ray 08/01/2017. TECHNIQUE: 2 views of the chest were obtained. FINDINGS: The lungs are clear. No pleural effusion. Stable mild elevation of the right hemidiaphragm Cardiomediastinal silhouette and pulmonary vasculature are within normal limits. No acute osseous finding. IMPRESSION: No acute cardiopulmonary disease.
[2017-08-05 21:45] VITALS: BP 129/72
[2017-08-06 05:40] VITALS: BP 131/84
[2017-08-06 08:40] LABS: ABSOLUTE BASOPHIL COUNT 0.1 /CUMM (0.0-0.2); ABSOLUTE EOSINOPHIL COUNT 0.4 /CUMM (0.0-0.7); ABSOLUTE GRANULOCYTE CT 5.1 /CUMM (1.4-6.5); ABSOLUTE LYMPH COUNT 4.5 /CUMM (1.2-3.4); ABSOLUTE MONOCYTE COUNT 0.5 /CUMM (0.10-0.60); BASOPHIL % 0.6 % (0.0-2.0); EOSINOPHIL % 3.9 % (0-5); GRANULOCYTE % 48.6 % (42.2-75.2); MEAN CORPUSCULAR HGB 27.8 PG (27.0-31.0); MEAN CORPUSCULAR HGB CONC 34.1 G/DL (33.0-37.0); MEAN CORPUSCULAR VOLUME 81.6 FL (81.0-99.0); MEAN PLATELET VOLUME 8.5 FL (7.4-10.4); PLATELET COUNT 519 /CUMM (130-400); RBC DISTRIBUTION WIDTH 14.2 % (11.5-14.5); RED BLOOD CELL CT 4.16 /CUMM (4.20-5.40); WHITE BLOOD CELL COUNT 10.6 /CUMM (4.8-10.8)
--- NOTE | 2017-08-06 08:42 | PN- Housestaff ---
Subjective Follow-up For: Right foot 3rd toe ulcer with cellulitis, concern for osteomyelitis Subjective: Patient seen and examined today. Patient reports right foot pain. Reported some bleeding after walking to the bathroom. Itching and rash has improved on chest. Patient denies fever/chills, n/v/c/d, hematuria/dysuria, chest pain SOB. Review of Systems Constitutional: Reports: see HPI. Objective Last 24 Hrs of Vital Signs/I&O Vital Signs Date Time Temp Pulse Resp B/P B/P Pulse O2 O2 Flow FiO2 Mean Ox Delivery Rate 08/06 0540 97.8 71 20 131/84 96 Room Air 08/05 2145 98.2 76 18 129/72 95 08/05 1414 98.6 86 20 122/60 97 Room Air Intake & Output 08/06 1600 08/06 0800 08/06 0000 Intake Total 220 100 Output Total Balance 220 100 Intake, IV 20 Intake, Oral 200 100 Physical Exam General Appearance: Alert, Cooperative, No Acute Distress Skin: mild diffuse rash on chest Sepsis Skin Exam (color): Normal for Ethnicity HEENT: Atraumatic, Mucous Membr. moist/pink Cardiovascular: Regular Rate, Normal S1, Normal S2, No Murmurs Lungs: Clear to Auscultation, Normal Air Movement Abdomen: Normal Bowel Sounds, Soft, No Tenderness Extremities: No Clubbing, No Cyanosis, No Edema, right foot dressing in place, small amount of dry blood seen on dressing Current Medications: Current Medications Sig/Contreras Start time Last Medication Dose Route Stop Time Status Admin Acetaminophen 650 MG .STK-MED ONE 08/05 1643 DC PO 08/05 1644 Acetaminophen 650 MG Q6P PRN 07/31 2300 AC 08/05 PO 1645 Atorvastatin Calcium 20 MG 1700 08/01 1700 AC 08/05 PO 1738 Budesonide/ 2 PUF BID 08/01 09 AC 08/05 Formoterol Fumarate INH 2045 Diphenhydramine HCl 50 MG Q6 PRN 08/05 0130 AC 08/05 PO 0121 Fluticasone 2 SPRAY DAILY NEEDED PRN 07/31 2330 AC Propionate ELISEO Furosemide 20 MG DAILY 08/01 09 AC 08/05 PO 0832 Gabapentin 300 MG QPM PRN 07/31 2345 AC PO Heparin Sodium 5,000 UNIT Q8 08/02 1515 AC 08/06 (Porcine) SC 0610 Hydrocortisone 1 ABIMBOLA BID 08/05 1442 AC 08/05 EXT 2044 Insulin Aspart 0 TIDAC/HS 08/04 1700 AC 08/05 SC 2042 Insulin Detemir 27 UNITS BID 08/03 0900 AC 08/05 SC 2042 Levothyroxine Sodium 0.025 MG DAILY AC 08/01 0700 AC 08/06 PO 06 Meclizine HCl 25 MG TID PRN 07/31 2330 AC PO Morphine Sulfate 2 MG Q8P PRN 08/01 021 AC 08/05 IV 2306 Tramadol HCl 50 MG Q8P PRN 08/01 021 AC 08/05 PO 204 Last 24 Hrs of Lab/Allen Results Last 24 Hrs of Labs/Mics: Laboratory Tests 08/06/17 0630: CBC w Diff Pending, WBC Pending, RBC Pending, Hgb Pending, Hct Pending, MCV Pending, MCH Pending, MCHC Pending, RDW Pending, Plt Count Pending, MPV Pending 08/05/17 1630: Urinalysis LIGHT H, Urine Color YEL, Urine Clarity CLEAR, Urine pH 6.0, Ur Specific [place] 1.015, Urine Protein 30 H, Urine Ketones NEG, Urine Nitrite NEG, Urine Bilirubin NEG, Urine Urobilinogen 0.2, Ur Leukocyte Esterase TRACE H , Ur Microscopic SEDIMENT EXAMINED, Urine WBC 1-3 H, Ur Epithelial Cells FEW, Urine Bacteria MOD H, Urine Hemoglobin NEG, Urine Glucose 100 H Assessment/Plan Assessment: Patient is a 52 year old woman w/ a PMHx of IDDM (18 yrs), obesity, hypertension , hyperlipidemia, diabetic neuropathy, hypothyroidsm, chronic knee pain ( on steroid injections every 4months [id number]) was sent to the ER via his primary care provider for swelling and erythema of right foot x 4 days. She is due to see [facility], Endocrinology and last HbA1c 10.0 done 07/14. At the time of admission-temperature 96.4, pulse rate 94, respiration 18, blood pressure 157/94, pulse ox 98% on room air. At presentation WBC 10.5, hemoglobin 11.5 (baseline 11), platelet count 511 (chronic thrombocytosis) Sodium 136, potassium 4.3, chloride 97, bicarbonate 26, anion gap 13 Renal function-BUN 21, creatinine 0.6. Glucose 224 Lactic acid 2.5-->1.6 Liver chemistries-AST 17, ALT 20, alkaline phosphatase 137 (likely bone) Foot x ray 07/31/17 - Comminuted intra-articular displaced fracture of the right foot 3rd proximal phalanx involving the base and mid shaft of the phalanx. Admitted to general medicine floor Problem list: 1. Open necrotic wound on right foot 2. Mild chronic thrombocytosis ( likely reactive ) 3. Anemia ( ?anemia of chronic diseases) 4. Type 2 diabetes 5. HLD Plan: Open necrotic wound on right foot Patient underwent incision and drainage deep to the deep fascia with tendon exposure on the day of admission (07/31/17) followed by closure on 08/04/17. she was followed off antibiotics while awaiting pathology/culture results. Patient received antibiotics recently [employer] and in the ED so the yield of the cultures are less predictably. Extremity elevation. Right metatarsal foot cultures from 08/04/17 grew gram negative rods and beta strep B. No antibiotic therapy per ID at this time. Patient remains afebrile with no leukocytosis. Patient had some bleeding from the site of surgery after walking to the bathroom. Spoke to Dr. Montague. Patient will need to be nonweight bearing. - re-evaluation with PT tomorrow for crutches - follow up with Dr. Montague Rash on the upper chest- improving Itchy - probably allergy. Given recent use of antibiotics, need to rule out other etiologies including drug rash. Type 2 diabetes Holding all her oral hypoglycemics. Increased to Levemir 27units BID and ISS per Endo. Need to obtain discharge recommendations. Chronic medical conditions HLD: Continued Atrovastatin Diabetic neuropathy: continued gabapentine Lower extremity edema: Continued lasix Seasonal allergies: continued Fluticasone spray Hypothyroidism: continued levothyroxine DVT prophylaxis SC heparin Code status Full Code Problem List: 1. Toe fracture, right Pain Ratin Pain Location: right foot Pain Goal: Pain 7 or less Pain Plan: tylenol, tramadol Tomorrow's Labs & Rationales: none - dc home today Consulting Request: Consulting Specialty: Podiatry Consulting Physician: Reason for Consult: diabetic foot
--- NOTE | 2017-08-06 09:57 | PN- Diabetes ---
Assessment/Plan Diabetes Assessment: Patient is feeling okay this morning. She states she is eating okay. Fingerstick blood sugars yesterday were 281 before breakfast, 269 before lunch, 322 before dinner, and 323 at bedtime. This morning her fingerstick blood sugar is 175. Plan: The patient's blood sugar is beginning to come down. I would leave her on the present insulin regimen and continue to monitor her sugars. Her white blood count is also improving. Subjective Subjective: Feels okay Review of Systems Constitutional: Denies: chills, fever. Cardiovascular: Denies: chest pain. Respiratory: Denies: short of breath. Gastrointestinal: Denies: abdominal pain, nausea, vomiting. Objective Last 24 Hrs of Vital Signs/I&O Vital Signs Date Time Temp Pulse Resp B/P B/P Pulse O2 O2 Flow FiO2 Mean Ox Delivery Rate 08/06 0540 97.8 71 20 131/84 96 Room Air 08/055 98.2 76 18 129/72 95 08/05 1414 98.6 86 20 122/60 97 Room Air Intake & Output 08/06 1600 08/06 0800 08/06 0000 Intake Total 220 100 Output Total Balance 220 100 Intake, IV 20 Intake, Oral 200 100 Vital Signs Date Time Temp Pulse Resp B/P B/P Pulse O2 O2 Flow FiO2 Mean Ox Delivery Rate 08/06 0540 97.8 71 20 131/84 96 Room Air 08/055 98.2 76 18 129/72 95 /09 1414 98.6 86 20 122/60 97 Room Air Intake & Output 08/06 1600 08/06 0800 08/06 0000 Intake Total 220 100 Output Total Balance 220 100 Intake, IV 20 Intake, Oral 200 100 Physical Exam General Appearance: alert, awake, comfortable Head: normal appearance Respiratory: normal breath sounds Cardiovascular: regular rate/rhythm Abdomen: normal bowel sounds Extremities: normal inspection Current Medications: Current Medications Sig/Contreras Start time Last Medication Dose Route Stop Time Status Admin Acetaminophen 650 MG .STK-MED ONE 08/05 1643 DC PO 08/05 1644 Acetaminophen 650 MG Q6P PRN / 2300 AC 08/05 PO 1645 Atorvastatin Calcium 20 MG 1700 08/01 1700 AC 08/05 PO 1738 Budesonide/ 2 PUF BID 08/01 0900 AC 08/05 Formoterol Fumarate INH 2045 Diphenhydramine HCl 50 MG Q6 PRN 08/05 0130 AC 08/05 PO 0121 Fluticasone 2 SPRAY DAILY NEEDED PRN 07/31 2330 AC Propionate ELISEO Furosemide 20 MG DAILY 08/01 899 AC 08/05 PO 0832 Gabapentin 300 MG QPM PRN 07/31 2345 AC PO Heparin Sodium 5,000 UNIT Q8 08/02 1515 AC 08/06 (Porcine) SC 06 Hydrocortisone 1 ABIMBOLA BID 08/05 1442 AC 08/05 EXT 204 Insulin Aspart 0 TIDAC/HS 08/04 1700 AC 08/06 SC 09 Insulin Detemir 27 UNITS BID 08/03 09 AC 08/05 SC 204 Levothyroxine Sodium 0.025 MG DAILY AC 08/01 07 AC 08/06 PO 06 Meclizine HCl 25 MG TID PRN 07/31 2330 AC PO Morphine Sulfate 2 MG Q8P PRN 08/01 0215 AC 08/05 IV 2306 Tramadol HCl 50 MG Q8P PRN 08/01 021 AC 08/05 PO 204 Findings Pertinent Lab/Allen Results: Laboratory Tests 08/06 08/05 0630 1630 Hematology CBC w Diff NO MAN DIFF REQ WBC (4.8 - 10.8 /CUMM) 10.6 RBC (4.20 - 5.40 /CUMM) 4.16 L Hgb (12.0 - 16.0 G/DL) 11.6 L Hct (37 - 47 %) 34.0 L MCV (81.0 - 99.0 FL) 81.6 MCH (27.0 - 31.0 PG) 27.8 MCHC (33.0 - 37.0 G/DL) 34.1 RDW (11.5 - 14.5 %) 14.2 Plt Count (130 - 400 /CUMM) 519 H MPV (7.4 - 10.4 FL) 8.5 Gran % (42.2 - 75.2 %) 48.6 Lymphocytes % (20.5 - 51.1 %) 42.5 Monocytes % (1.7 - 9.3 %) 4.4 Eosinophils % (0 - 5 %) 3.9 Basophils % (0.0 - 2.0 %) 0.6 Absolute Granulocytes (1.4 - 6.5 /CUMM) 5.1 Absolute Lymphocytes (1.2 - 3.4 /CUMM) 4.5 H Absolute Monocytes (0.10 - 0.60 /CUMM) 0.5 Absolute Eosinophils (0.0 - 0.7 /CUMM) 0.4 Absolute Basophils (0.0 - 0.2 /CUMM) 0.1 Urines Urinalysis LIGHT H Urine Color (YEL,AMB,STR) YEL Urine Clarity (CLEAR) CLEAR Urine pH (5.0 - 8.0) 6.0 Ur Specific [place] (1.001 - 1.035) 1.015 Urine Protein (NEG,<30 MG/DL) 30 H Urine Ketones (NEG) NEG Urine Nitrite (NEG) NEG Urine Bilirubin (NEG) NEG Urine Urobilinogen (0.1 - 1.0 EU/dl) 0.2 Ur Leukocyte Esterase (NEG) TRACE H Ur Microscopic SEDIMENT EXAMINED Urine WBC (0 - 2 /HPF) 1-3 H Ur Epithelial Cells (NONE,FEW) FEW Urine Bacteria (NEG/NONE) MOD H Urine Hemoglobin (NEG) NEG Urine Glucose (N MG/DL) 100 H
--- NOTE | 2017-08-06 10:37 | PN- Infect Dx ---
Subjective Subjective: This patient is a 52-year-old white female with a right foot osteomyelitis. She is afebrile however her white blood cell count is elevated and not consistent with previous labs and her white blood cell count has normalized. The pain in her leg has resolved and she had no more episodes of itchiness. Denies fevers chills nausea vomiting diarrhea or constipation. Review of Systems Comments: 12 point review of systems negative Objective Last 24 Hrs of Vital Signs/I&O Vital Signs Date Time Temp Pulse Resp B/P B/P Pulse O2 O2 Flow FiO2 Mean Ox Delivery Rate 08/06 0540 97.8 71 20 131/84 96 Room Air 08/05 2145 98.2 76 18 129/72 95 08/05 1414 98.6 86 20 122/60 97 Room Air Intake & Output 08/06 1600 08/06 0800 08/06 0000 Intake Total 220 100 Output Total Balance 220 100 Intake, IV 20 Intake, Oral 200 100 Physical Exam Other Physical Findings: Awake alert oriented 3 Pupils equal and reactive to light and accommodation equal ocular motion Neck supple no JVD no lymphadenopathy Heart regular rate and rhythm Lungs clear to auscultation bilaterally Abdomen is soft nontender nondistended Lower extremity clean and dressed. Results Last 24 Hours of Lab Results: Laboratory Tests 08/06 08/05 0630 1630 Hematology CBC w Diff NO MAN DIFF REQ WBC (4.8 - 10.8 /CUMM) 10.6 RBC (4.20 - 5.40 /CUMM) 4.16 L Hgb (12.0 - 16.0 G/DL) 11.6 L Hct (37 - 47 %) 34.0 L MCV (81.0 - 99.0 FL) 81.6 MCH (27.0 - 31.0 PG) 27.8 MCHC (33.0 - 37.0 G/DL) 34.1 RDW (11.5 - 14.5 %) 14.2 Plt Count (130 - 400 /CUMM) 519 H MPV (7.4 - 10.4 FL) 8.5 Gran % (42.2 - 75.2 %) 48.6 Lymphocytes % (20.5 - 51.1 %) 42.5 Monocytes % (1.7 - 9.3 %) 4.4 Eosinophils % (0 - 5 %) 3.9 Basophils % (0.0 - 2.0 %) 0.6 Absolute Granulocytes (1.4 - 6.5 /CUMM) 5.1 Absolute Lymphocytes (1.2 - 3.4 /CUMM) 4.5 H Absolute Monocytes (0.10 - 0.60 /CUMM) 0.5 Absolute Eosinophils (0.0 - 0.7 /CUMM) 0.4 Absolute Basophils (0.0 - 0.2 /CUMM) 0.1 Urines Urinalysis LIGHT H Urine Color (YEL,AMB,STR) YEL Urine Clarity (CLEAR) CLEAR Urine pH (5.0 - 8.0) 6.0 Ur Specific [place] (1.001 - 1.035) 1.015 Urine Protein (NEG,<30 MG/DL) 30 H Urine Ketones (NEG) NEG Urine Nitrite (NEG) NEG Urine Bilirubin (NEG) NEG Urine Urobilinogen (0.1 - 1.0 EU/dl) 0.2 Ur Leukocyte Esterase (NEG) TRACE H Ur Microscopic SEDIMENT EXAMINED Urine WBC (0 - 2 /HPF) 1-3 H Ur Epithelial Cells (NONE,FEW) FEW Urine Bacteria (NEG/NONE) MOD H Urine Hemoglobin (NEG) NEG Urine Glucose (N MG/DL) 100 H White blood cell count normalized. Last 24 Hours of Allen Results: Microbiology Date/Time Procedure - Status Source Growth 08/04 1244 Gross Specimen Examination - RES EXTREMITIE GRAM NEGATIVE RODS BETA STREP GROUP B 08/04 1244 Gram Stain - RES EXTREMITIE Recent Imaging Studies: August 05 chest x-ray demonstrate no acute cardiopulmonary disease Assessment/Plan ID Impression: This patient is 52-year-old white female status post amputation. The patient had an increase in her white blood cell count which has resolved without any intervention. The surgery has removed the osteomyelitis and there is no indication to start antibiotics. The patient can be discharged off of antibiotics. Suggestion: 1. No antibiotics indicated 2. Okay to be discharged from an ID standpoint 3. He does not have any symptoms of urinary tract infection and would not treat.
--- NOTE | 2017-08-06 11:22 | PN- Att Addend ---
Attending Addendum Attending Brief Note Patient seen and examined. Plan of care discussed with the medical team and the patient. Available lab work and radiology test reports were reviewed. She reports improvement in her itching. Otherwise feels well and denies any recent fever chills nausea vomiting difficulty breathing, swelling or lip swelling. She is hoping to go home today. Assessment * Foot wound status post debridement and then wound closure on August 04 * History of right third toe amputation * History of MRSA osteomyelitis of toe * History diabetes * Itching and new rash- mild in nature and only limited upper chest- her medication list was reviewed and I do not see any new medication which could be implicated in her itching and rash * Increased wbc count- without any fever; she only has slightly elevated left shift; chest x-ray done yesterday was negative and UA does not show any signs of UTI Plan * continue Benadryl for symptomatically relief for itching * Can use Benadryl cream topical; also, prescribed 1% hydrocortisone cream to apply to upper chest area * Please have case management arrange a rolling walker for her- 2 this can be arrange patient can be discharged home * Culture report from the operating theater specimen is growing gram-negative ysbil and beta strep. Infectious disease note reviewed and no antibiotics are indicated. Exam: General: Patient awake alert oriented without any distress CVS: S1 plus S2 without any murmur or gallops Chest: Few scattered crepitation without any wheeze. There is no respiratory distress. 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 without any focal neuro deficit and follows commands appropriately Extremities: No edema; no clubbing or cyanosis noted Skin exam shows a mild rash and upper chest area which appears to be macular in nature Current Medications Sig/Contreras Start time Last Medication Dose Route Stop Time Status Admin Acetaminophen 650 MG .STK-MED ONE 08/05 1643 DC PO 08/05 1644 Acetaminophen 650 MG Q6P PRN 07/31 2300 AC 08/05 PO 1645 Atorvastatin Calcium 20 MG 1700 08/01 1700 AC 08/05 PO 1738 Budesonide/ 2 PUF BID 08/01 0900 AC 08/06 Formoterol Fumarate INH 1026 Diphenhydramine HCl 50 MG Q6 PRN 08/05 0130 AC 08/05 PO 0121 Fluticasone 2 SPRAY DAILY NEEDED PRN 07/31 2330 AC Propionate ELISEO Furosemide 20 MG DAILY 08/01 09 AC 08/06 PO 1026 Gabapentin 300 MG QPM PRN 07/31 2345 AC PO Heparin Sodium 5,000 UNIT Q8 08/02 1515 AC 08/06 (Porcine) SC 0610 Hydrocortisone 1 ABIMBOLA BID 08/05 1442 AC 08/06 EXT 1026 Insulin Aspart 0 TIDAC/HS 08/04 1700 AC 08/06 SC 0920 Insulin Detemir 27 UNITS BID 08/03 09 AC 08/06 SC 1029 Levothyroxine Sodium 0.025 MG DAILY AC 08/01 07 AC 08/06 PO 0610 Meclizine HCl 25 MG TID PRN 07/31 2330 AC PO Morphine Sulfate 2 MG Q8P PRN 08/01 021 AC 08/05 IV 2306 Tramadol HCl 50 MG Q8P PRN 08/01 0215 AC 08/05 PO 2046 Laboratory Tests 08/06 08/05 0630 1630 Hematology CBC w Diff NO MAN DIFF REQ WBC (4.8 - 10.8 /CUMM) 10.6 RBC (4.20 - 5.40 /CUMM) 4.16 L Hgb (12.0 - 16.0 G/DL) 11.6 L Hct (37 - 47 %) 34.0 L MCV (81.0 - 99.0 FL) 81.6 MCH (27.0 - 31.0 PG) 27.8 MCHC (33.0 - 37.0 G/DL) 34.1 RDW (11.5 - 14.5 %) 14.2 Plt Count (130 - 400 /CUMM) 519 H MPV (7.4 - 10.4 FL) 8.5 Gran % (42.2 - 75.2 %) 48.6 Lymphocytes % (20.5 - 51.1 %) 42.5 Monocytes % (1.7 - 9.3 %) 4.4 Eosinophils % (0 - 5 %) 3.9 Basophils % (0.0 - 2.0 %) 0.6 Absolute Granulocytes (1.4 - 6.5 /CUMM) 5.1 Absolute Lymphocytes (1.2 - 3.4 /CUMM) 4.5 H Absolute Monocytes (0.10 - 0.60 /CUMM) 0.5 Absolute Eosinophils (0.0 - 0.7 /CUMM) 0.4 Absolute Basophils (0.0 - 0.2 /CUMM) 0.1 Urines Urinalysis LIGHT H Urine Color (YEL,AMB,STR) YEL Urine Clarity (CLEAR) CLEAR Urine pH (5.0 - 8.0) 6.0 Ur Specific [place] (1.001 - 1.035) 1.015 Urine Protein (NEG,<30 MG/DL) 30 H Urine Ketones (NEG) NEG Urine Nitrite (NEG) NEG Urine Bilirubin (NEG) NEG Urine Urobilinogen (0.1 - 1.0 EU/dl) 0.2 Ur Leukocyte Esterase (NEG) TRACE H Ur Microscopic SEDIMENT EXAMINED Urine WBC (0 - 2 /HPF) 1-3 H Ur Epithelial Cells (NONE,FEW) FEW Urine Bacteria (NEG/NONE) MOD H Urine Hemoglobin (NEG) NEG Urine Glucose (N MG/DL) 100 H Vital Signs Date Time Temp Pulse Resp B/P B/P Pulse O2 O2 Flow FiO2 Mean Ox Delivery Rate 08/06 0540 97.8 71 20 131/84 96 Room Air 08/05 2145 98.2 76 18 129/72 95 08/05 1414 98.6 86 20 122/60 97 Room Air Intake & Output 08/06 1600 08/06 0800 08/06 0000 Intake Total 220 100 Output Total Balance 220 100 Intake, IV 20 Intake, Oral 200 100
[2017-08-06 13:55] VITALS: BP 133/58
[2017-08-06 22:09] VITALS: BP 130/60
[2017-08-07 06:00] VITALS: BP 128/72
--- NOTE | 2017-08-07 07:56 | PN- Housestaff ---
Mine LEAL,Tracey 08/07/17 0756: Subjective Follow-up For: Right foot osteomyelitis Subjective: seen and examined at bedside. Appears feeling ok, yesterday tried to shower and had bleeding from her right foot. She was asked not to bear weight and use clutches. Informed that I spoke with and he agrees with heel touch weight bearing. Review of Systems Constitutional: Reports: see HPI. Objective Last 24 Hrs of Vital Signs/I&O Vital Signs Date Time Temp Pulse Resp B/P B/P Pulse O2 O2 Flow FiO2 Mean Ox Delivery Rate 08/07 599 98.0 76 18 128/72 96 Room Air 08/06 2209 98.2 68 20 130/60 97 08/06 1355 98.2 82 20 133/58 98 Room Air Intake & Output 08/07 0800 08/07 0000 08/06 1600 Intake Total 200 300 320 Output Total Balance 200 300 320 Intake, Oral 200 300 320 Number 1 Bowel Movements Physical Exam General Appearance: Alert, Oriented X3, Cooperative Skin: No Rashes, No Breakdown, dressing in the right foot region Skin Temp/Moisture Exam: Warm/Dry HEENT: Atraumatic, PERRLA, EOMI Neck: Supple, No JVD Cardiovascular: Normal S1, Normal S2, No Murmurs Lungs: Clear to Auscultation, Normal Air Movement Abdomen: Normal Bowel Sounds, Soft, No Tenderness Neurological: Normal Gait, Normal Speech Current Medications: Current Medications Sig/Contreras Start time Last Medication Dose Route Stop Time Status Admin Acetaminophen 650 MG Q6P PRN 07/31 2300 AC 08/05 PO 1645 Atorvastatin Calcium 20 MG 1700 08/01 1700 AC 08/06 PO 1732 Budesonide/ 2 PUF BID 08/01 09 AC 08/06 Formoterol Fumarate INH 2134 Diphenhydramine HCl 50 MG Q6 PRN 08/05 0130 AC 08/05 PO 0121 Fluticasone 2 SPRAY DAILY NEEDED PRN 07/31 2330 AC Propionate ELISEO Furosemide 20 MG DAILY 08/01 09 AC 08/07 PO 0814 Gabapentin 300 MG QPM PRN 07/31 2345 AC PO Heparin Sodium 5,000 UNIT Q8 08/02 1515 AC 08/07 (Porcine) SC 0537 Hydrocortisone 1 ABIMBOLA BID 08/05 1442 AC 08/06 EXT 2134 Insulin Aspart 0 TIDAC/HS 08/04 1700 AC 08/07 SC 0815 Insulin Detemir 30 UNITS BID 08/07 0900 AC 08/07 SC 0815 Insulin Detemir 27 UNITS BID 08/03 0900 DC 08/06 SC 2133 Levothyroxine Sodium 0.025 MG DAILY AC 08/01 0700 AC 08/07 PO 0537 Meclizine HCl 25 MG TID PRN 07/31 2330 AC PO Metformin HCl 1,000 MG 0800,1700 08/07 0815 AC PO Morphine Sulfate 2 MG Q8P PRN 08/01 0215 AC 08/07 IV 0147 Tramadol HCl 50 MG Q8P PRN 08/01 0215 AC 08/06 PO 2133 Assessment/Plan Assessment: Patient is a 52 year old woman w/ a PMHx of IDDM (18 yrs), obesity, hypertension , hyperlipidemia, diabetic neuropathy, hypothyroidsm, chronic knee pain ( on steroid injections every 4months [id number]) was sent to the ER via his primary care provider for swelling and erythema of right foot x 4 days. She is [facility], Endocrinology and last HbA1c 10.0 done 07/14. At the time of admission-temperature 96.4, pulse rate 94, respiration 18, blood pressure 157/94, pulse ox 98% on room air. At presentation WBC 10.5, hemoglobin 11.5 (baseline 11), platelet count 511 (chronic thrombocytosis) Sodium 136, potassium 4.3, chloride 97, bicarbonate 26, anion gap 13 Renal function-BUN 21, creatinine 0.6. Glucose 224 Lactic acid 2.5-->1.6 Liver chemistries-AST 17, ALT 20, alkaline phosphatase 137 (likely bone) Foot x ray 07/31/17 - Comminuted intra-articular displaced fracture of the right foot 3rd proximal phalanx involving the base and mid shaft of the phalanx. Admitted to general medicine floor Problem list: 1. Open necrotic wound on right foot 2. Mild chronic thrombocytosis ( likely reactive ) 3. Anemia ( ?anemia of chronic diseases) 4. Type 2 diabetes 5. HLD Plan: Right foot osteomyelitis Patient underwent incision and drainage deep to the deep fascia with tendon exposure on the day of admission (07/31/17) followed by closure on 08/04. she was followed off antibiotics while awaiting pathology/culture results. 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 Extremity elevation. Rigth metatarsal foot Cultures from 08/04/17 grew gram negative rods and beta strep B. Given pathology from initial surgery showing actue osteo with positive margins, cultures growing pseudomonas from repeat cultures, she benefits 4 week course of meropenem. PICC line today and started on Meropenem 1gm Q8 pending final cultures. Right foot Xray and ESR. Doppler lower extremity arterial to ruled out peripheral vascular disease. Weight bearing status - heel touch. Follow up with . Type 2 diabetes Holding all her oral hypoglycemics. Increased to Levemir 30units BID and ISS per Endo. Need to obtain discharge recommendations. Thrombocytosis Platelet count of 519 (511 at admission). Probably reactive in the setting of recent infection. Likely benefits starting aspririn. Chronic medical conditions HLD: Continued Atrovastatin Diabetic neuropathy: continued gabapentine Lower extremity edema: Continued lasix Seasonal allergies: continued Fluticasone spray Hypothyroidism: continued levothyroxine DVT prophylaxis SC heparin Code status Full Code Problem List: 1. Foot osteomyelitis, right Pain Ratin Pain Location: right foot Pain Goal: Pain 4 or less Pain Plan: tramadol Tomorrow's Labs & Rationales: ESR Consulting Request: Consulting Specialty: Podiatry Consulting Physician: Reason for Consult: diabetic foot Ángel Wesley MD 08/07/17 1720: Attending MD Review Statement Attending Statement Attending MD Statement: examined this patient, discuss w/resident/PA/PROFESSOR [employer]ILY [employer]UDIES, agreed w/resident/PA/PROFESSOR [employer] FAMILY [employer]IES, reviewed EMR data (avail), discussed with nursing, discussed with case mgmt, reviewed images, amended to note Attending Assessment/Plan: The patient was seen and discussed with house staff. Appreciate ID, Podiatry, and Endocrinology input. Growing strep and GNR (?Pseudomonas/resistant) from wound. Meropenem as per Dr. Bey. PICC line placed. Will need 4 weeks of therapy.
--- NOTE | 2017-08-07 08:08 | PN- Diabetes ---
Assessment/Plan Diabetes Assessment: This 52 y/o female w/ PMH of T2DM x 18 yrs with HbA1c of 10%, peripheral neuropathy, HTN, HLD, Hypothyroidism, presented to the ER for her right foot infection in her right 3rd toe. She underwent the foot procedure on 08/01/2017. At home, she was on Lantus 60 units daily, metformin 1000 mg twice a day and Novolog coverage before meals. In Hospital, she was put on Levemir 27 units twice a day, Novolog coverage before meals and Novolog coverage at bedtime. Her FSGs were 175, 241, 177, 259 and 286. Plan: 1. increase Levemir to 30 units twice a day; 2. restart her on metformin 1000 mg twice a day; 3. continue the current novolog coverage nefore meals and novolog coverage at bedtime; 4. monitor FSGs. will follow. Subjective Subjective: She feels okay this morning. Objective Last 24 Hrs of Vital Signs/I&O Vital Signs Date Time Temp Pulse Resp B/P B/P Pulse O2 O2 Flow FiO2 Mean Ox Delivery Rate 08/07 0600 98.0 76 18 128/72 96 Room Air 08/06 2209 98.2 68 20 130/60 97 08/06 1355 98.2 82 20 133/58 98 Room Air Intake & Output 08/07 1600 08/07 0800 08/07 0000 Intake Total 200 300 Output Total Balance 200 300 Intake, Oral 200 300
--- NOTE | 2017-08-07 11:09 | PN- Infect Dx ---
Subjective Subjective: Afebrile. She notes minimal discomfort in the right foot. Objective Last 24 Hrs of Vital Signs/I&O Vital Signs Date Time Temp Pulse Resp B/P B/P Pulse O2 O2 Flow FiO2 Mean Ox Delivery Rate 08/07 06 98.0 76 18 128/72 96 Room Air 08/06 2209 98.2 68 20 130/60 97 08/06 1355 98.2 82 20 133/58 98 Room Air Intake & Output 08/07 1600 08/07 0800 08/07 0000 Intake Total 200 300 Output Total Balance 200 300 Intake, Oral 200 300 Physical Exam Other Physical Findings: She appears comfortable in no acute distress Extremities right foot dressing intact Results Last 24 Hours of Lab Results: Laboratory Tests 08/06 08/05 0630 1630 Hematology CBC w Diff NO MAN DIFF REQ WBC (4.8 - 10.8 /CUMM) 10.6 RBC (4.20 - 5.40 /CUMM) 4.16 L Hgb (12.0 - 16.0 G/DL) 11.6 L Hct (37 - 47 %) 34.0 L MCV (81.0 - 99.0 FL) 81.6 MCH (27.0 - 31.0 PG) 27.8 MCHC (33.0 - 37.0 G/DL) 34.1 RDW (11.5 - 14.5 %) 14.2 Plt Count (130 - 400 /CUMM) 519 H MPV (7.4 - 10.4 FL) 8.5 Gran % (42.2 - 75.2 %) 48.6 Lymphocytes % (20.5 - 51.1 %) 42.5 Monocytes % (1.7 - 9.3 %) 4.4 Eosinophils % (0 - 5 %) 3.9 Basophils % (0.0 - 2.0 %) 0.6 Absolute Granulocytes (1.4 - 6.5 /CUMM) 5.1 Absolute Lymphocytes (1.2 - 3.4 /CUMM) 4.5 H Absolute Monocytes (0.10 - 0.60 /CUMM) 0.5 Absolute Eosinophils (0.0 - 0.7 /CUMM) 0.4 Absolute Basophils (0.0 - 0.2 /CUMM) 0.1 Urines Urinalysis LIGHT H Urine Color (YEL,AMB,STR) YEL Urine Clarity (CLEAR) CLEAR Urine pH (5.0 - 8.0) 6.0 Ur Specific [place] (1.001 - 1.035) 1.015 Urine Protein (NEG,<30 MG/DL) 30 H Urine Ketones (NEG) NEG Urine Nitrite (NEG) NEG Urine Bilirubin (NEG) NEG Urine Urobilinogen (0.1 - 1.0 EU/dl) 0.2 Ur Leukocyte Esterase (NEG) TRACE H Ur Microscopic SEDIMENT EXAMINED Urine WBC (0 - 2 /HPF) 1-3 H Ur Epithelial Cells (NONE,FEW) FEW Urine Bacteria (NEG/NONE) MOD H Urine Hemoglobin (NEG) NEG Urine Glucose (N MG/DL) 100 H Last 24 Hours of [place] Results: OR culture August 04 labeled right third metatarsal bone positive for Group B strep and Pseudomonas Recent Imaging Studies: Chest x-ray August 05 negative Assessment/Plan ID Impression: Stable, with temperatures and white blood cell count remaining normal, off antibiotics status post delayed primary closure of his right foot wound 3 days ago following an amputation of the right third toe 3 days earlier for osteomyelitis. Her initial OR culture was negative but the repeat culture, sent 3 days ago, is positive for Group B strep and Pseudomonas and, given the pathology from the initial surgery, revealing bone with features consistent with acute osteomyelitis present at the proximal bone margin, feel that she will require a 4 week course of IV antibiotics for residual osteomyelitis. This has been discussed with Podiatry who concurs. Suggestion: 1. Would pursue placement of a PICC 2. Arterial Dopplers of both lower extremities 3. Would obtain a postop baseline ESR and x-ray of the right foot 4. Begin Meropenem 1 g IV every 8 hours pending final OR cultures
[2017-08-07 14:27] VITALS: BP 144/80
--- NOTE | 2017-08-07 16:12 | ULTRASOUND REPORT ---
Examination: PICC line Clinical history: 52-year-old female with osteomyelitis. PICC line required for IV antibiotics. Interventional radiologist: Wilmer Rush M.D. Anesthesia: 1% local lidocaine. FLUOROSCOPY TIME: 0.4 minutes DOSE AREA PRODUCT: 3.9 mGy-m2 (milligray-meter squared) Procedure in Detail: Informed consent was obtained from the patient prior to the procedure. During this process, the procedure and potential alternatives were explained along with the intended outcome and benefits. The risks of the procedure including the possibility of an unsuccessful procedure, as well as the risk of not doing the procedure were discussed. The patient was given the opportunity to ask questions regarding the procedure and appeared competent to make decisions. A signed consent form which documents this discussion was placed in the medical record. Following informed consent the patient was placed supine on the fluoroscopic table. The right upper extremity was prepped and draped in usual sterile fashion. All elements of maximal sterile barrier technique were followed including use of cap, mask, sterile gown, sterile gloves, a sterile full body drape and hand hygiene. The skin was prepared with 2% chlorhexidine for cutaneous antisepsis and sterile ultrasound preparation with sterile gel and probe cover was performed when applicable. A time out procedure was performed. Real-time ultrasound was performed to obtained venous mapping and vascular access assessment. Using standard interventional, sterile and Seldinger technique a micro-stick system was utilized to enter into the right upper extremity basilic vein. A wire was introduced. The wire was introduced down into the inferior vena cava to confirm the venous position as well. A 40 cm single lumen power PICC was then placed. The tip of the catheter was placed at the cavoatrial junction. Fluoroscopic imaging confirmed the position of the catheter. The PICC line was secured into position. A sterile dressing was placed over the site. The patient tolerated the procedure well and was discharged from the department in good condition with instructions. Complications: None. ULTRASOUND-GUIDED VASCULAR ACCESS: Ultrasound was used to identify the right basilic vein. The right basilic vein was confirmed to be patent. Real time imaging confirmed needle access into the right basilic vein. An image was saved for permanent recording in PACS. IMPRESSION: Successful ultrasound and fluoroscopically guided right upper extremity PICC line placement
--- NOTE | 2017-08-07 16:31 | ULTRASOUND REPORT ---
EXAMINATION: COLOR-FLOW DUPLEX IMAGING OF THE BILATERAL LOWER EXTREMITY ARTERIAL SYSTEM. VELOCITY MEASUREMENTS THROUGHOUT THE FEMORAL ARTERIES. CLINICAL INFORMATION: 52-year-old female with osteomyelitis status post right toe amputation. COMPARISON: None RIGHT FEMORAL RUNOFF VELOCITIES: The right common femoral artery measures 83cm/s and is triphasic. The right profunda femoral artery measures 64cm/s and is biphasic. Right proximal superficial femoral artery measures 85 cm/s and is triphasic. Mid superficial femoral artery measures 111cm/s and is triphasic. Distal right superficial femoral artery measures 88cm/s and is triphasic. Right popliteal velocity measures 103cm/s and is triphasic. Posterior tibial velocity is 110cm/s and flow is triphasic. Anterior tibial velocity is 35cm/s and flow is triphasic. Dorsal pedis is not clearly visualized secondary to overlying bandage. LEFT FEMORAL RUNOFF VELOCITIES: The left common femoral artery measures ascendingcm/s and is triphasic. The left profunda femoral artery measures 77cm/s and is biphasic. Left proximal superficial femoral artery measures 86 cm/s and is triphasic. Mid superficial femoral artery measures 123cm/s and is triphasic. Distal left superficial femoral artery measures 101cm/s and is triphasic. Left popliteal velocity measures 105cm/s and is triphasic. Posterior tibial velocity is 125cm/s and flow is triphasic. Anterior tibial velocity is 66cm/s and flow is triphasic. Dorsal pedis velocity is 127cm/s and flow is triphasic. IMPRESSION: Normal peripheral arterial testing with velocity measurements. No sonographic evidence to suggest hemodynamically significant stenosis within the deep arterial system of either lower extremity. If clinically indicated, this can be further evaluated with CTA lower extremity runoff.
--- NOTE | 2017-08-07 17:33 | RADIOLOGY REPORT ---
EXAMINATION: XR FOOT, RIGHT CLINICAL INFORMATION: Postoperative. Osteomyelitis. COMPARISON: Right foot done on 07/31/2017. TECHNIQUE: AP, lateral, and oblique views of the right foot. FINDINGS: There is malalignment identified at the 1st tarsometatarsal joint. There are suggestion of periosteal reaction and new bone formation noted associated with multiple nonspecific periarticular radiolucencies seen at the 1st, 2nd and 3rd tarsometatarsal joints. The findings may represent inflammatory or neuropathic arthritic changes versus posttraumatic changes. In addition, exuberant new bone formation and soft tissue swelling are noted overlying the midfoot. Moderate-sized posterior plantar calcaneal spur is noted. Followup CT scan may be considered for further full detailed evaluation. Postsurgical changes of amputation is noted at the level of the head of the 3rd metatarsal. IMPRESSION: 1. Evidence of malalignment and periosteal reaction and periarticular radiolucencies are identified at the 1st and 2nd tarsometatarsal joints and to a lesser extent at the 3rd tarsometatarsal joint with evidence of exuberant new bone formation and significant soft tissue swelling overlying the midfoot, may represent inflammatory or neuropathic arthritic changes versus posttraumatic changes. Followup CT scan may be considered for further full detailed evaluation. 2. Postop changes of amputation at the level of the head of the 3rd metatarsal.
[2017-08-07 22:01] VITALS: BP 147/79
[2017-08-08 06:20] VITALS: BP 126/64; BP 128/74
--- NOTE | 2017-08-08 08:11 | PN- Housestaff ---
Mine LEAL,Tracey 08/08/17 0811: Subjective Follow-up For: Right foot osteomyelitis Type 2 diabetes Subjective: seen and examined at bedside She reports pain in the right foot, got some morphine in the night. Unable to sleep well, otherwise no issues. Got PICC Line yesterday. Review of Systems Constitutional: Reports: see HPI. Objective Last 24 Hrs of Vital Signs/I&O Vital Signs Date Time Temp Pulse Resp B/P B/P Pulse O2 O2 Flow FiO2 Mean Ox Delivery Rate 08/09 619 98.5 79 20 128/74 95 Room Air 08/07 220 98.5 84 18 147/79 96 08/07 1427 98.1 85 18 144/80 95 Intake & Output 08/08 1600 08/08 0800 08/08 0000 Intake Total 300 250 Output Total Balance 300 250 Intake, IV 60 10 Intake, Oral 240 240 Physical Exam General Appearance: Alert, Oriented X3, Cooperative Skin: No Rashes, No Breakdown, dressing present on the right foot Skin Temp/Moisture Exam: Warm/Dry HEENT: Atraumatic, PERRLA, EOMI Neck: Supple Cardiovascular: Regular Rate, Normal S1, Normal S2 Lungs: Clear to Auscultation, Normal Air Movement Abdomen: Normal Bowel Sounds, Soft, No Tenderness Neurological: Normal Gait, Normal Speech Extremities: No Clubbing, No Cyanosis, No Edema Vascular: Pulses Symmetrical Current Medications: Current Medications Sig/Contreras Start time Last Medication Dose Route Stop Time Status Admin Acetaminophen 650 MG Q6P PRN 07/31 2300 AC 08/05 PO 1645 Atorvastatin Calcium 20 MG 1700 08/01 1700 AC 08/07 PO 1635 Budesonide/ 2 PUF BID 08/01 09 AC 08/07 Formoterol Fumarate INH 2125 Diphenhydramine HCl 50 MG Q6 PRN 08/05 0130 AC 08/05 PO 0121 Fluticasone 2 SPRAY DAILY NEEDED PRN 07/31 2330 AC Propionate ELISEO Furosemide 20 MG DAILY 08/01 09 AC 08/07 PO 0814 Gabapentin 300 MG QPM PRN 07/31 2345 AC PO Heparin Sodium 5,000 UNIT Q8 08/07 2200 AC 08/08 (Porcine) SC 0523 Heparin Sodium 0 .STK-MED ONE 08/07 1110 DC (Porcine) IV Heparin Sodium 5,000 UNIT Q8 08/02 1515 DC 08/07 (Porcine) SC 0537 Hydrocortisone 1 ABIMBOLA BID 08/05 1442 AC 08/06 EXT 2134 Insulin Aspart 0 TIDAC/HS 08/04 1700 AC 08/07 SC 1645 Insulin Detemir 30 UNITS BID 08/07 0900 AC 08/07 SC 2125 Levothyroxine Sodium 0.025 MG DAILY AC 08/01 0700 AC 08/08 PO 0522 Lidocaine 0 .STK-MED ONE 08/07 1110 DC .ROUTE Meclizine HCl 25 MG TID PRN 07/31 2330 AC PO Meropenem 1 GM IQ8 08/07 1600 AC 08/07 IV 2320 Metformin HCl 1,000 MG 0800,1700 08/07 0815 DC 08/07 PO 0934 Morphine Sulfate 2 MG ONCE ONE 08/07 2345 DC 08/07 IV 08/07 2346 2358 Morphine Sulfate 2 MG Q8P PRN 08/01 0215 DC 08/07 IV 0147 Patient Medication 1 ED ONE ONE 08/07 1330 DC 08/07 Teaching ED 08/07 1331 1329 Tramadol HCl 50 MG Q8P PRN 08/01 0215 AC 08/08 PO 0523 Last 24 Hrs of Lab/Allen Results Last 24 Hrs of Labs/Mics: Laboratory Tests 08/08/17 0530: ESR Westergren Pending Assessment/Plan Assessment: Patient is a 52 year old woman w/ a PMHx of IDDM (18 yrs), obesity, hypertension , hyperlipidemia, diabetic neuropathy, hypothyroidsm, chronic knee pain ( on steroid injections every 4months [id number]) was sent to the ER via his primary care provider for swelling and erythema of right foot x 4 days. Problem list: 1. Open necrotic wound on right foot 2. Mild chronic thrombocytosis ( likely reactive ) 3. Anemia ( ?anemia of chronic diseases) 4. Type 2 diabetes 5. HLD PLAN Admitted to general medicine floor and the following is her management. RIGHT FOOT OSTEOMYELITIS Patient underwent incision and drainage deep to the deep fascia with tendon exposure on the day of admission (07/31/17) followed by closure on 08/04/17. she was followed off antibiotics while awaiting pathology/culture results. Patient received antibiotics recently [employer]ATOR. Rigth metatarsal foot Cultures from 08/04/17 grew gram negative rods and beta strep B. Given pathology from initial surgery showing actue osteo with positive margins, cultures growing pseudomonas and alfha strep, she benefits 4 week course of abx. A PICC line was placed on 08/07/17, started on meropenem for 1 day prior to final cultures. Once final cultures were back, started on Zosyn 4.5gm Q6 for a total of 4 week duration. Baseline ESR was 69 Prior to starting abx. Doppler ultrasound of arteries ruled out PAD. Weight bearing status - heel touch. Follow up with . Type 2 diabetes Holded all her oral hypoglycemics. On Levemir 30units BID and ISS. Novolin scale for now, will transition once closure completed. At discharge placed on lantus 30units BID along with new sliding scale. Continued metformin 1000mg BID. follow up requested with . Chronic medical conditions HLD: Continued Atrovastatin (rosuvastatin) Diabetic neuropathy: continued gabapentine Lower extremity edema: Continued lasix Seasonal allergies: continued Fluticasone spray Hypothyroidism: continued levothyroxine HTN: Diovan Discharge disposition Patient will be sent home with new wheel chair, due to need for foot elevation s /p surgery. Patient is still experiencing pain and limitation of her ambulation. DVT prophylaxis SC heparin Code status Full Code Problem List: 1. Foot osteomyelitis, right Pain Ratin Pain Location: right foot Pain Goal: Pain 4 or less Pain Plan: Morphine as needed and Tramadol Tomorrow's Labs & Rationales: none Consulting Request: Consulting Specialty: Podiatry Consulting Physician: Reason for Consult: diabetic foot Ángel Wesley MD 08/08/17 1349: Attending MD Review Statement Attending Statement Attending MD Statement: examined this patient, discuss w/resident/PA/QC MANAGER, agreed w/resident/PA/QC MANAGER, reviewed EMR data (avail), discussed with nursing, discussed with case mgmt, amended to note Attending Assessment/Plan: The patient was seen and discussed with house staff. ID input appreciated. Antibiotic being changed to Zosyn as per Dr. Bey. Patient called after discharge and also wanted a prescription for a pain med stronger than Tramadol for use at night. Adding Percocet 5/325 #20 1 tab q6h prn severe pain.
[2017-08-08] MEDS ORDERED: LANTUS SOL100 UNIT/1 SC ×2 (08:38→09:45)
[2017-08-08] MEDS ORDERED: MEROPENEM1 G1 IV (08:38)
[2017-08-08] MEDS ORDERED: NOVOLOG FL100 UNIT/1 SC ×3 (09:02→09:46)
[2017-08-08] MEDS ORDERED: CRESTOR10 M1 PO (09:14)
[2017-08-08] MEDS ORDERED: TRAMADOL HCL50 M1 PO (09:45)
[2017-08-08] MEDS ORDERED: ZOSYN 4.5 GRAM4.5 GM IV ×2 (10:33→10:34)
--- NOTE | 2017-08-08 10:48 | PN- Diabetes ---
Assessment/Plan Diabetes Assessment: This 52 y/o female w/ PMH of T2DM x 18 yrs with HbA1c of 10%, peripheral neuropathy, HTN, HLD, Hypothyroidism, presented to the ER for her right foot infection in her right 3rd toe. She underwent the foot procedure on 08/01/2017. At home, she was on Lantus 60 units daily, metformin 1000 mg twice a day and Novolog coverage before meals. In Hospital, she is on Levemir 30 units twice a day, Novolog coverage before meals and Novolog coverage at bedtime. Her FSGs were 256, 179, 190 and 220. Plan: 1.continue Levemir 30 units twice a day; 2. restart her on metformin 1000 mg twice a day; 3. continue the current novolog coverage nefore meals and novolog coverage at bedtime; 4. monitor FSGs. 5. if she is medically stable for discharge, the discharge plan for DM: ---Lantus 30 units twice aday; ---metformin 1000 mg twice a day; ---Novolog coverage before meals-- the same as the inpatient Novolog coverage before meals; ---monitor FSGs x 4 times a day; ---f/u in office after discharge. will follow. Subjective Subjective: She probably will be discharged home today. Objective Last 24 Hrs of Vital Signs/I&O Vital Signs Date Time Temp Pulse Resp B/P B/P Pulse O2 O2 Flow FiO2 Mean Ox Delivery Rate 08/08 0620 98.5 79 20 128/74 95 Room Air 08/07 2201 98.5 84 18 147/79 96 08/07 1427 98.1 85 18 144/80 95 Intake & Output 08/08 1600 08/08 0800 08/08 0000 Intake Total 300 250 Output Total Balance 300 250 Intake, IV 60 10 Intake, Oral 240 240 Findings Pertinent Lab/Allen Results: Laboratory Tests 08/08 0530 Hematology ESR Westergren (0 - 20 MM) 69 H
--- NOTE | 2017-08-08 13:13 | PN- Infect Dx ---
Subjective Subjective: Afebrile without complaints Objective Last 24 Hrs of Vital Signs/I&O Vital Signs Date Time Temp Pulse Resp B/P B/P Pulse O2 O2 Flow FiO2 Mean Ox Delivery Rate 08/08 0620 98.5 79 20 128/74 95 Room Air 08/07 2201 98.5 84 18 147/79 96 08/07 1427 98.1 85 18 144/80 95 Intake & Output 08/08 1600 08/08 0800 08/08 0000 Intake Total 500 300 250 Output Total Balance 500 300 250 Intake, IV 60 10 Intake, Oral 500 240 240 Physical Exam Other Physical Findings: She appears comfortable in no acute distress Extremities right foot dressing intact; PICC in place in the right upper extremity Results Last 24 Hours of Lab Results: Laboratory Tests 08/08 0530 Hematology ESR Westergren (0 - 20 MM) 69 H Last 24 Hours of Allen Results: OR culture labeled third metatarsal positive for Group B strep and Pseudomonas sensitive to all antibiotics tested Recent Imaging Studies: X-ray of the right foot August 07 reveals exuberant new bone formation overlying the midfoot status post amputation at the level of the head of the third metatarsal; evidence of malalignment and periosteal reaction and periarticular radiolucencies at the first and second tarsometatarsal joints and, to a lesser extent, at the third tarsometatarsal joint Bilateral arterial Dopplers August 07 reveal no hemodynamically significant stenosis Assessment/Plan ID Impression: Stable, with temperatures and white blood cell count remaining normal, now on Meropenem for presumed residual osteomyelitis of the right foot, status post delayed primary closure of her right foot wound 4 days ago following an amputation of the right third toe 3 days earlier, with the OR culture from her most recent surgery positive for Group B strep and Pseudomonas and with the pathology from her initial surgery revealing features consistent with acute osteomyelitis to the proximal bone margin. Based on her final OR cultures her antibiotics can be adjusted, with plans for a 4 week course of antibiotics from her most recent debridement. Suggestion: 1. Discontinue Meropenem 2. Begin Zosyn 4.5 g IV every 6 hours and continue for 4 weeks from her most recent debridement (until September 04) 3. Weekly ESR while on Zosyn
== END 2017-08-08 13:25 | disposition home health service (06) | DRG 305 ==
LOC: ERH 16:12 → 2NA 21:28 → ERHI 21:28 → EDBEDREQ 08-01 13:29 → ENRESERV 08-01 13:42 → ENTRNSPT 08-01 14:17 → EDTRNSPT 08-01 14:35 → EDTRNSPTSTS 08-01 14:35 → 2NA 08-01 14:46 → CMPTRNSPT 08-01 15:12 → ENTRNSPT 08-04 13:50 → EDTRNSPTSTS 08-04 14:00 → EDTRNSPT 08-04 14:00 → CMPTRNSPT 08-04 14:23 → ENPENDDIS 08-08 10:50 → ENTRNSPT 08-08 12:53 → EDTRNSPTSTS 08-08 13:09 → CMPTRNSPT 08-08 13:11 → 2NA 08-08 13:25
PROVIDERS: Internal Medicine; Internal Medicine Hematology & Oncology; Physician Assistant
PROC: 0Y6M0ZC Detachment at Right Foot, Partial 3rd Ray, Open Approach (ICD-10-PCS; 2017-08-01)
PROC: 02HV33Z Insertion of Infusion Device into Superior Vena Cava, Percutaneous Approach (ICD-10-PCS; 2017-08-01)
PROC: 0J9Q0ZZ Drainage of Right Foot Subcutaneous Tissue and Fascia, Open Approach (ICD-10-PCS; principal; 2017-08-04)
PROC: 0JBQ0ZZ Excision of Right Foot Subcutaneous Tissue and Fascia, Open Approach (ICD-10-PCS; 2017-08-04)
PROC: 0J9Q0ZZ Drainage of Right Foot Subcutaneous Tissue and Fascia, Open Approach (ICD-10-PCS; 2017-08-04)
PROC: 0Y6M0ZC Detachment at Right Foot, Partial 3rd Ray, Open Approach (ICD-10-PCS; 2017-08-04)
PROC: 0JBQ0ZZ Excision of Right Foot Subcutaneous Tissue and Fascia, Open Approach (ICD-10-PCS; 2017-08-04)
DX: E11.69 Type 2 diabetes mellitus with other specified complication (principal); E11.65 Type 2 diabetes mellitus with hyperglycemia; E11.40 Type 2 diabetes mellitus with diabetic neuropathy, unspecified; M86.171 Other acute osteomyelitis, right ankle and foot; Z79.84 Long term (current) use of oral hypoglycemic drugs; E66.9 Obesity, unspecified; Z68.37 Body mass index [BMI] 37.0-37.9, adult; M84.477A Pathological fracture, right toe(s), initial encounter for fracture; E87.2 Acidosis; D47.3 Essential (hemorrhagic) thrombocythemia; I10 Essential (primary) hypertension; E78.5 Hyperlipidemia, unspecified; E03.9 Hypothyroidism, unspecified; D63.8 Anemia in other chronic diseases classified elsewhere
CPT/HCPCS: 2NAP; 87070; 87075; ERO; 36415; 36592; 71045; 71046; 73630-RT; 77001; 81001; 82436; 87040; 87147; 88305; 93005; 93010; 93925; 96372; 97116-GO; 97161-GP; C1769; J0131; J1100; J1642; J1644; J1815; J2001; J2185; J2405; J2543; J3370; J3490; J7040; J7042